=== PATIENT | female | born 1950 | race Caucasian/White ===

== ENCOUNTER 2023-06-03 12:59 | Outpatient (OUT) | payer MEDICARE, BC, SELFPAY ==
[2023-06-03 13:30] LABS: Basophils Percent Auto 0.4 % (0.2-2.0); Eosinophils Absolute Auto 0.1 10^3/uL (0.0-0.7); Eosinophils Percent Auto 1.7 % (0.9-7.0); Hematocrit 44.9 % (36.0-48.0); Hemoglobin 14.3 g/dL (12.0-16.0); Immature Granulocytes Abs Auto 0.01 10^3/uL (0.00-0.03); Immature Granulocytes Pct Auto 0.1 % (0.0-0.5); Lymphocytes Absolute Auto 2.4 10^3/uL (1.2-3.8); Lymphocytes Percent Auto 32.6 % (20.5-60.0); Mean Corpuscular HGB Conc 31.8 g/dL (29.9-35.2); Mean Corpuscular Hemoglobin 29.7 pg (26.7-34.0); Mean Corpuscular Volume 93.3 fL (81.0-99.0); Mean Platelet Volume 10.6 fL (9.5-13.5); Monocytes Absolute Auto 0.8 10^3/uL (0.3-0.8); Monocytes Percent Auto 10.5 % (1.7-12.0); Neutrophils Absolute Auto 4.1 10^3/uL (1.4-6.5); Neutrophils Percent Auto 54.7 % (43.0-75.0); Platelet Count 259 10^3/uL (150-450); Red Blood Count 4.81 10^6/uL (4.20-5.40); Red Cell Distribution Width 13.8 % (11.0-15.0); White Blood Count 7.4 10^3/uL (4.0-11.0)
[2023-06-03 13:49] LABS: Estimated Average Glucose 117 mg/dL; Glycohemoglobin A1C 5.7 % (4.5-6.2)
[2023-06-03 14:20] LABS: Alanine Aminotransferase 35 U/L (14-59); Albumin Globulin Ratio 0.9; Albumin Level 3.7 g/dL (3.4-5.0); Alkaline Phosphatase 96 U/L (46-116); Anion Gap 11.2; Aspartate Amino Transferase 26 U/L (15-37); BUN Creatinine Ratio 17.9; Bilirubin Total 0.6 mg/dL (0.2-1.0); Calcium 9.5 mg/dL (8.5-10.1); Carbon Dioxide 31.1 mmol/L (21.0-32.0); Chloride 103 mmol/L (98-107); Chol HDL Ratio 3.7; Cholesterol 243 mg/dL (<=200); Estimated GFR (African America >60 (>=60); Estimated GFR (Non-African Ame >60 (>=60); Globulin 4.2 g/dL; Glucose 108 mg/dL (74-106); HDL Cholesterol 66 mg/dL (40-60); Potassium 4.3 mmol/L (3.5-5.1); Sodium 141 mmol/L (136-145); Thyroid Stimulating Hormone 3.949 uIU/mL (0.358-3.740); Total Protein 7.9 g/dL (6.4-8.2); Triglycerides 87 mg/dL (<=150); VLDL CHOLESTEROL 17.4 mg/dL
[2023-06-04 12:12] LABS: Insulin 16.1 uIU/mL (2.6-24.9)
== END 2023-06-03 13:00 | disposition home or self-care (01) ==
LOC: LAB 12:59
PROVIDERS: PCP Family Medicine; Visit Provider Family Medicine
DX: E78.00 Pure hypercholesterolemia, unspecified (principal); I10 Essential (primary) hypertension; E55.9 Vitamin D deficiency, unspecified; R73.09 Other abnormal glucose; D64.9 Anemia, unspecified
CPT/HCPCS: 36415; 80053; 80061; 82306; 83036; 83525; 83540; 84436; 84443; 84481; 85025

== ENCOUNTER 2024-12-06 10:25 | Outpatient (OUT) | payer MEDICARE, BC, SELFPAY ==
--- OUTSIDE RECORDS SUMMARY | 2024-12-06 10:38 | XMS_ITS | CCD ---
Author Organization [facility] Care Team Providers Care Whip Sawyer Name Role Phone TASIA ., DR WOODWARD Admitting Unavailable HOY ., DR WOODWARD Attending Unavailable HOY ., DR WOODWARD Primary Care Unavailable HOY ., DR WOODWARD Admitting Unavailable HOY ., DR WOODWARD Attending Unavailable HOY ., DR WOODWARD Primary Care Unavailable HOY ., DR WOODWARD Consulting Unavailable HOY ., DR WOODWARD Admitting Unavailable HOY ., DR WOODWARD Attending Unavailable HOY ., DR WOODWARD Primary Care Unavailable HOY ., DR WOODWARD Consulting Unavailable KHAN DPM, CAM Attending Unavailable HOY, TRACE M Primary Care Unavailable HOY, TRACE M Primary Care Unavailable KHAN DPM, CAM Attending Unavailable KHAN DPM, CAM Attending Unavailable HOY, TRACE M Primary Care Unavailable KHAN DPM, CAM Attending Unavailable HOY, TRACE M Primary Care Unavailable KHAN DPM, CAM Attending Unavailable HOY, TRACE M Primary Care Unavailable KHAN DPM, CAM Attending Unavailable HOY, TRACE M Primary Care Unavailable KHNA DPM, CAM Attending Unavailable HOY, TRACE M Primary Care Unavailable KHAN DPM, CAM Attending Unavailable HOY, TRACE M Primary Care Unavailable KHAN DPM, CAM Attending Unavailable HOY, TRACE M Primary Care Unavailable KHAN DPM, CAM Attending Unavailable HOY, TRACE M Primary Care Unavailable KHAN DPM, CAM Attending Unavailable HOY, TRACE M Primary Care Unavailable KHAN DPM, CAM Admitting Unavailable KHAN DPM, CAM Attending Unavailable HOY, TRACE M Primary Care Unavailable BARTAL DPM, ALEXANDRE Larson Attending Unavailable HOY, TRACE M Primary Care Unavailable HOY, TRACE M Primary Care Unavailable KHAN DPM, CAM Attending Unavailable HOY, TRACE M Primary Care Unavailable Problems Active Problems Problem Classification Problem Date Documented Da te Episodic/Chronic Unclassified (3 sources) COUGH, UNSPECIFIED; Translations: [COUGH, UNSPECIFIED] Onset: 08-27-2022 Past or Other Problems Problem Classification Problem Date Documented Da te Episodic/Chronic Genitourinary symptoms and ill-defined conditions (4 sources) Dysuria; Translations: [DYSURIA] Onset: 01-30-2022 Episodic Unclassified (1 source) COUGH, UNSPECIFIED; Translations: [COUGH, UNSPECIFIED] Onset: 08-24-2022 Results Test Name Value Interpretation Reference Range Facility [facility] PODIATRY Physician Progr ess Noteon 11-04-2022 AMB PODIATRY Physician Progress Note Reason for Exam Right ankle pain Service 3 views right ankle. AP, lateral, mortise Findings Status post tibial talocalcaneal arthrodesis with intramedullary jorge in place 2 screws from the posterior to anterior calcaneus and the 2 screws from the medial to lateral tibia holding the intramedullary jorge in place No evidence of hardware failure or loosening The fibula has been resected proximal to the ankle joint. Impression Status post tibiotalar joint arthrodesis with intramedullary jorge in place. No evidence of hardware failure or loosening This is a similar appearance to previous x-rays. No acute osseous changes Normal [facility] PODIATRY Physician Progress Note Chief Complaint right ankle pain History of Present Illness Patient is a 71-year-old female who presents to clinic with pain and swelling to her RIGHT anterior ankle for the past 4 days. She states that the pain is 4/10 and is aching. She is s/p right ankle and subtalar joint arthrodesis 02/04/2022. Patient states that she and her sister had COVID infection approximately 2 months ago and subsequently developed a UTI. She was placed on ciprofloxacin and then subsequently placed on Keflex which she did not tolerate well and she discontinued herself. She is concerned that she has a hematogenous infection that is spread to her operative limb. Denies shortness of breath, fever, chills, nausea, vomiting, diarrhea, calf pain. Physical Exam Vitals & Measurements Height/Length Measured: 170 cm (10/19/22 10:38:00) Weight Measured: 120 kg (10/19/22 10:38:00) Body Mass Index Measured: 41.52 kg/m2 (10/19/22 10:38:00) Ht/Wt Measurement Refused by Patient?2: No (10/19/22 10:38:00) Depression Screening Scores Initial Depression Screen Score: 0 (10/19/22 10:38:00) Fall Risk Assessment Is the patient ambulatory (mobile): Yes (10/19/22 10:38:) Have you had a fall within the past: No (10/19/22 10:38:) Have you had 2 or more falls in the past: No (10/19/22 10:38:00) General: Alert and oriented x3. In no acute distress. Lower Extremity Physical Exam: Vascular: DP and PT pulses are palpable, bilateral. CFT < 3 seconds to all digits, Bilateral. Mild nonpitting edema noted to the right anterior ankle. Neurologic: Epicritic and protopathic sensations are grossly intact. Saph/sural/SP/DP/planta r sensation intact to light touch, Bilateral. Dermatologic: Skin is mildly increased to the anterior RIGHT ankle. Capillary fill time is less than 5 seconds to distal lower extremity. Ecchymosis is absent, bilateral. Incisions well-healed. No open lesions noted. Musculoskeletal: Muscle strength 5/5 to all pedal groups bilaterally No pain with palpation or manipulation of operative site. Foot/ankle appears rectus in nature with longitudinal axis of tibia. Mild tenderness to palpation of the anterior ankle. Medication Reconciliation What How Much When Why Instructions Unchanged acetaminophen-oxycodone (acetaminophen-oxycodon e 325 mg-5 mg oral tablet = Percocet) 1 Tabs Oral EVERY SIX HOURS as needed for for pain Primary osteoarthritis of right ankle Duration: 7 Days Contact prescribing physician if questions or concerns Unchanged acetaminophen-oxycodone (acetaminophen-oxycodon e 325 mg-5 mg oral tablet = Percocet) 1 Tabs Oral EVERY SIX HOURS as needed for for pain Primary osteoarthritis of right ankle Duration: 10 Days Contact prescribing physician if questions or concerns Unchanged acetaminophen-oxycodone (acetaminophen-oxycodon e 325 mg-5 mg oral tablet = Percocet) 2 Tabs Oral EVERY SIX HOURS as needed for for pain Status post surgery Duration: 7 Days Contact prescribing physician if questions or concerns Unchanged acetaminophen-oxycodone (acetaminophen-oxycodon e 325 mg-5 mg oral tablet = Percocet) 1 Tabs Oral EVERY SIX HOURS as needed for for pain Primary osteoarthritis of right ankle Duration: 7 Days Contact prescribing physician if questions or concerns Unchanged albuterol = Proventil, Ventolin (albuterol 90 mcg/ inh inhalation aerosol) 2 Puffs Inhalation EVERY FOUR HOURS as needed for Wheezing or Dyspnea Contact prescribing physician if questions or concerns Unchanged aspirin (aspirin 81 mg oral delayed release tablet) 1 Tabs Oral DAILY WITH BREAKFAST Contact prescribing physician if questions or concerns Unchanged calcium carbonate (calcium (as carbonate) 600 mg oral tablet) 2 Tabs Oral TWICE A DAY Contact prescribing physician if questions or concerns Unchanged carvedilol (carvedilol 6.25 mg oral tablet) 1 Tabs Oral TWICE A DAY Contact prescribing physician if questions or concerns Unchanged cephalexin (Keflex 500 mg oral capsule) 1 Capsules Oral EVERY EIGHT HOURS Duration: 10 Days Contact prescribing physician if questions or concerns Unchanged cyanocobalamin (cyanocobalamin 1000 mcg oral tablet) 2 Tabs Oral DAILY Contact prescribing physician if questions or concerns Unchanged cyclobenzaprine = Flexeril (cyclobenzaprine 10 mg oral tablet) 1 Tabs Oral EVERY EIGHT HOURS as needed for as needed for muscle spasm Contact prescribing physician if questions or concerns Unchanged diclofenac (diclofenac sodium (= Voltaren) 75 mg oral delayed release tablet) 1 Tabs Oral EVERY OTHER DAY as needed for as needed for pain Contact prescribing physician if questions or concerns Unchanged ferrous sulfate ( iron ) (ferrous sulfate 325 mg (65 mg elemental iron) oral tablet) 1 Tabs Oral DAILY Contact prescribing physician if questions or concerns Unchanged ginkgo (Ginkgo Biloba) 1 Tabs Oral DAILY Contact prescribing physician if questions or concerns Unchanged ibuprofen = Motrin, Advil (IBU 800 mg oral tablet) 1 Tabs Oral THREE TIMES A DAY as needed for as ne (more content not included)... Normal [facility] Ambulatory Clinical Summaryo n 10-19-2022 Ambulatory Clinical Summary SADIE FERNANDEZ :1950 Visit Date:10/19/2022 Ambulatory Visit Instructions Your Care Team Attending Physician - JYOTI ORTEGA, CAM Primary Care Physician - TRACE DOZIER Procedures Performed RIGHT ANKLE ARTHRODESIS,,RIGHT SUBTALAR JOINT ARTHRODESIS (02/04/2022) RIGHT TOTAL HIP REPLACEMENT (04/05/2019) Lumbar Laminectomy Posterior with Fusion. (05/09/2017) left hip revision Left acetabular revision right total knee LEFT TOTAL HIP REPLACEMENT 2006 2 BACK SURGERY WITH HARDWARE INSERTION 2006 GALLBLADDER 2007 Discharge Vitals No qualifying data available. What to do next Scheduled Follow-Up Appointments No results Medications What How Much When Why Instructions Unchanged acetaminophen-oxycodone (acetaminophen-oxycodon e 325 mg-5 mg oral tablet = Percocet) 1 Tabs Oral EVERY SIX HOURS as needed for for pain Primary osteoarthritis of right ankle Duration: 7 Days Unchanged acetaminophen-oxycodone (acetaminophen-oxycodon e 325 mg-5 mg oral tablet = Percocet) 1 Tabs Oral EVERY SIX HOURS as needed for for pain Primary osteoarthritis of right ankle Duration: 10 Days Unchanged acetaminophen-oxycodone (acetaminophen-oxycodon e 325 mg-5 mg oral tablet = Percocet) 2 Tabs Oral EVERY SIX HOURS as needed for for pain Status post surgery Duration: 7 Days Unchanged acetaminophen-oxycodone (acetaminophen-oxycodon e 325 mg-5 mg oral tablet = Percocet) 1 Tabs Oral EVERY SIX HOURS as needed for for pain Primary osteoarthritis of right ankle Duration: 7 Days Unchanged albuterol = Proventil, Ventolin (albuterol 90 mcg/ inh inhalation aerosol) 2 Puffs Inhalation EVERY FOUR HOURS as needed for Wheezing or Dyspnea Unchanged aspirin (aspirin 81 mg oral delayed release tablet) 1 Tabs Oral DAILY WITH BREAKFAST Unchanged calcium carbonate (calcium (as carbonate) 600 mg oral tablet) 2 Tabs Oral TWICE A DAY Unchanged carvedilol (carvedilol 6.25 mg oral tablet) 1 Tabs Oral TWICE A DAY Unchanged cephalexin (Keflex 500 mg oral capsule) 1 Capsules Oral EVERY EIGHT HOURS Duration: 10 Days Unchanged cyanocobalamin (cyanocobalamin 1000 mcg oral tablet) 2 Tabs Oral DAILY Unchanged cyclobenzaprine = Flexeril (cyclobenzaprine 10 mg oral tablet) 1 Tabs Oral EVERY EIGHT HOURS as needed for as needed for muscle spasm Unchanged diclofenac (diclofenac sodium (= Voltaren) 75 mg oral delayed release tablet) 1 Tabs Oral EVERY OTHER DAY as needed for as needed for pain Unchanged ferrous sulfate ( iron ) (ferrous sulfate 325 mg (65 mg elemental iron) oral tablet) 1 Tabs Oral DAILY Unchanged ginkgo (Ginkgo Biloba) 1 Tabs Oral DAILY Unchanged ibuprofen = Motrin, Advil (IBU 800 mg oral tablet) 1 Tabs Oral THREE TIMES A DAY as needed for as needed for pain Unchanged methylPREDNISolone (Medrol 4 mg oral tablet) 1 Packets Oral DAILY Duration: 6 Days as directed on package labeling Unchanged multivitamin with minerals 1 Tabs Oral DAILY Unchanged Non-Formulary Med (BIO-CMP (CALIUM,MAGNESIUM,PHOSP HATE) OTC) 1 Tabs Oral DAILY Unchanged omeprazole (omeprazole 40 mg oral delayed release capsule) 1 Capsules Oral DAILY Allergies No Known Medication Allergies Pollen allergy sneezing Problems Ongoing - Any problem that you are currently receiving treatment for. Cellulitis of right lower leg Difficulty walking Local edema Lumbar stenosis Osteoarthritis of right subtalar joint Pain in right ankle and joints of right foot Primary osteoarthritis of right ankle Spondylolisthesis Common Emergency Awareness Tips IS IT A STROKE? Act FAST and Check for these signs: FACE Does the face look uneven? ARM Does one arm drift down? SPEECH Does their speech sound strange? TIME Call at any sign of stroke Heart Attack Signs Chest discomfort: Most heart attacks involve discomfort in the center of the chest and lasts more than a few minutes, or goes away and comes back. It can feel like uncomfortable pressure, squeezing, fullness or pain. Discomfort in upper body: Symptoms can include pain or discomfort in one or both arms, back, neck, jaw or stomach. Shortness of breath: With or without discomfort. Other signs: Breaking out in a cold sweat, nausea, or lightheaded. Remember, MINUTES DO MATTER. If you experience any of these heart attack warning signs, call to get immediate medical attention! Normal [facility] Comprehensive Intake - Texto n 10-19-2022 Comprehensive Intake - Text Comprehensive Intake Entered On: 10/19/2022 10:40 EDT Performed On: 10/19/2022 10:38 EDT by Ilsa Shah Summary Chief Complaint : pt presents today with pain left lower extremtiy proximal to surgical incision. 08/02 onset two months. Three ankle xrays taken today. Advance Directive : Yes Bladder Control Issues? : No Urine Leakage? : No Presence or absence of urinary incontinence assessed : Yes CPT-II Medication list doc'd in medical record : Yes Influenza immunization administered or previously received : No Pneumococcal vaccine administered or previously received : No LauraSanderRocky Ilsa A 10/19/2022 10:38 EDT Measurements Ht/Wt Measurement Refused by Patient? : No Weight Measured : 120 kg(Converted to: 264 lb 9 oz, 264.555 lb) Height/Length Measured : 170 cm(Converted to: 5 ft 7 in, 66.93 in) Body Mass Index Measured : 41.52 kg/m2 Body Mass Index documented : Yes Ilsa Shah 10/19/2022 10:38 EDT Vitals Require BP : No Pain Present : No actual or suspected pain Pain : 4 Pain severity quantified : No pain present LauraSanderIlsa Hidalgo 10/19/2022 10:38 EDT Infection Screening - Ambulatory Exposure AND/OR close contact with a person under investigation or laboratory-confirmed COVID-19 individual within 14 days of symptom onset AND/OR any of the following: : No Do you live/work in a high risk situation (congregated living, hemodialysis, infusion clinic, residential, assisted living, assisted, homeless snf, etc.)? : No Ilsa Shah 10/19/2022 10:38 EDT Depression Screening Is patient currently : None of the Below Feeling Down, Depressed, Hopeless : Not at all Little Interest - Pleasure in Activities : Not at all Initial Depression Screen Score : 0 Depression Screening Score 0 : No Ilsa Shah 10/19/2022 10:38 EDT Falls Risk Assessment Is the patient ambulatory (mobile) : Yes Have you had 2 or more falls in the past year : No Have you had a fall within the past year that has caused an injury : No Patient screen for fall risk : no falls in last year OR 1 fall with no injury in last year Ilsa Shah 10/19/2022 10:38 EDT Normal [facility] SYMPTOMATIC COVID-19 ANTIGEN on 08-24-2022 EUA Statement SEE BELOW Normal [facility] Comment on above: Result Comment: This test has not been FDA cleared or approved, but has been authorized by the FDA under an Emergency Use Authorization (EUA) for use by authorized laboratories certified under CLIA that meet the requirements to perform moderate or high complexity testing. This test has been authorized only for the detection of proteins from SARS-CoV-2, not for any other viruses or pathogens. The emergency use of this test is authorized for the duration of the declaration that circumstances exist justifying the authorization of emergency use of in vitro diagnostic tests for detection and/or diagnosis of Covid-19 under section 564(b)(1) of the Act, 21 U.S.C. 360bbb-3(b)(1), unless the declaration is terminated or authorization is revoked sooner. Performed By: #### C VDAGS #### [facility] [address] [address] [address] Bryan Villa SARS-CoV-2 (COVID-19) RNA SU+probe Ql (Unsp spec) Positive Abnormal NEGATIVE [facility] Comment on above: Performed By: #### C VDAGS #### [facility] [address] [address] [address] Bryan Villa [facility] PODIATRY Physician Progr ess Noteon 08-09-2022 [facility] PODIATRY Physician Progress Note Reason for Exam Status post right ankle surgery. Service 3 views right ankle. AP, lateral, mortise Findings Intramedullary nail fixation from the calcaneus to the talus to the tibia with hardware intact. No signs of hardware loosening No acute fracture Soft tissue intact Impression Interval changes with continued osseous bridging across the subtalar joint and ankle joint Normal [facility] AMB PODIATRY Physician Progress Note Chief Complaint Patient presents 6 months post right STJ arthrodesis Arrived with regular footwear and OT ankle brace Reports no pain and she is doing well with dorsi and plantar flexion History of Present Illness Patient presents to clinic status post right ankle arthrodesis, subtalar joint arthrodesis, excision of fibula. Date of surgery: February 04 2022. She presents to clinic with her sister and they are both very happy today. She states she is in no pain today. She has been driving. She denies any constitutional symptoms today. Physical Exam Vitals & Measurements Height/Length Measured: 169 cm (08/06/22 11:10:00) Weight Measured: 125 kg (08/06/22 11:10:00) Body Mass Index Measured: 43.77 kg/m2 (08/06/22 11:10:00) Ht/Wt Measurement Refused by Patient?2: No (08/06/22 11:10:00) Depression Screening Scores Initial Depression Screen Score: 0 (08/06/22 11:10:00) Fall Risk Assessment Is the patient ambulatory (mobile): Yes (08/06/22 11:10:00) Have you had a fall within the past: No (08/06/22 11:10:) Have you had 2 or more falls in the past: No (08/06/22 11:10:00) General: Alert and oriented x3. In no acute distress. Patient's vital signs appear stable, denies any constitutional symptoms. Lower Extremity Physical Exam: Vascular: DP and PT pulses are palpable, bilateral. CFT < 3 seconds to all digits, Bilateral. Edema is absent bilaterally Neurologic: Epicritic and protopathic sensations are grossly intact. Saph/sural/SP/DP/planta r sensation intact to light touch, Bilateral. Dermatologic: Skin temperature is within normal limits, warm to warm, from proximal tibial tuberosity to distal digits. Capillary fill time is less than 5 seconds to distal lower extremity. Ecchymosis is absent, bilateral. Incisions well-healed. Skin edges appear viable and well hydrated. Musculoskeletal: Muscle strength 5/5 to all pedal groups bilaterally No pain with palpation or manipulation of operative site. Foot/ankle appears rectus in nature with longitudinal axis of tibia. Assessment/Plan This Visit Diagnosis 1. Status post right foot surgery [id number] Ordered: AMB Office/Outpt Est Pt SF / - min [id number], 08/06/2022 18:07:00 EDT, Status post right foot surgery AMB X-ray, ankle, right; , min 3 views [id number], 08/06/2022 18:07:00 EDT, Status post right foot surgery, 1 Patient presents today s/p right ankle arthrodesis, subtalar joint arthrodesis, excision of fibula. Date of surgery: February 04 2022. X-rays were obtained and reviewed in detail and discussed at length the patient's understanding. Continue weight bearing as tolerated in normal shoes Prescription for diabetic shoes provided RTC: as needed Problem List/Past Medical History Ongoing Cellulitis of right lower leg Difficulty walking Local edema Lumbar stenosis Osteoarthritis of right subtalar joint Pain in right ankle and joints of right foot Primary osteoarthritis of right ankle Spondylolisthesis Historical Arthritis Asthma Back pain High Blood Pressure Reflux Procedure/Surgical History RIGHT ANKLE ARTHRODESIS,,RIGHT SUBTALAR JOINT ARTHRODESIS: 02/04/22 RIGHT TOTAL HIP REPLACEMENT: 04/05/19 Lumbar Laminectomy Posterior with Fusion.: 05/09/17 Left acetabular revision left hip revision LEFT TOTAL HIP REPLACEMENT 2006 right total knee 2 BACK SURGERY WITH HARDWARE INSERTION 2007 GALLBLADDER 2008 Medications acetaminophen-oxycodone 325 mg-5 mg oral tablet = Percocet, 2 tabs, ORAL, [id number], PRN acetaminophen-oxycodone 325 mg-5 mg oral tablet = Percocet, 1 tabs, ORAL, [id number], PRN acetaminophen-oxycodone 325 mg-5 mg oral tablet = Percocet, 1 tabs, ORAL, [id number], PRN acetaminophen-oxycodone 325 mg-5 mg oral tablet = Percocet, 1 tabs, ORAL, [id number], PRN albuterol 90 mcg/inh inhalation aerosol, 2 puffs, Inhalation, [id number], PRN aspirin 81 mg oral delayed release tablet, 81 mg= 1 tabs, ORAL, DAILY WITH BREAKFAST BIO-CMP (CALIUM,MAGNESIUM,PHOSP HATE) OTC, 1 tabs, ORAL, DAILY calcium (as carbonate) 600 mg oral tablet, 1200 mg= 2 tabs, ORAL, BID carvedilol 6.25 mg oral tablet, 6.25 mg= 1 tabs, ORAL, BID cyanocobalamin 1000 mcg oral tablet, 2000 mcg= 2 tabs, ORAL, DAILY cyclobenzaprine 10 mg oral tablet, 10 mg= 1 tabs, ORAL, [id number], PRN, 2 refills diclofenac sodium (= Voltaren) 75 mg oral delayed release tablet, 75 mg= 1 tabs, ORAL, EVERY OTHER DAY, PRN ferrous sulfate 325 mg (65 mg elemental iron) oral tablet, 325 mg= 1 tabs, ORAL, DAILY Ginkgo Biloba, 1 tabs, ORAL, DAILY IBU 800 mg oral tablet, 800 mg= 1 tabs, ORAL, TID, PRN Keflex 500 mg oral capsule, 500 mg= 1 caps, ORAL, [id number] Medrol 4 mg oral tablet, 1 packets, ORAL, DAILY multivitamin with minerals, 1 tabs, ORAL, DAILY omeprazole 40 mg oral delayed release capsule, 40 mg= 1 caps, ORAL, DAILY Allergies No Known Medication Allergies Pollen allergy (sneezing) Social History Alcohol - Denies Alcohol Use Domestic Concerns No, Stressors [place] (more content not included)... Normal [facility] Ambulatory Clinical Summaryo n 08-06-2022 Ambulatory Clinical Summary SADIE FERNANDEZ :1950 Visit Date:08/06/2022 Ambulatory Visit Instructions Your Care Team Attending Physician - JYOTI ORTEGA, CAM Primary Care Physician - TRACE DOZIER Procedures Performed RIGHT ANKLE ARTHRODESIS,,RIGHT SUBTALAR JOINT ARTHRODESIS (02/04/2022) RIGHT TOTAL HIP REPLACEMENT (04/05/2019) Lumbar Laminectomy Posterior with Fusion. (05/09/2017) 2 BACK SURGERY WITH HARDWARE INSERTION 2007 GALLBLADDER 2008 Left acetabular revision left hip revision LEFT TOTAL HIP REPLACEMENT 2006 right total knee Discharge Vitals Height 169 cm Weight 125 kg BMI 43.77 Height/Length Measured: 169 cm (08/06/22 11:10:00) Weight Measured: 125 kg (08/06/22 11:10:00) Body Mass Index Measured: 43.77 kg/m2 (08/06/22 11:10:00) Ht/Wt Measurement Refused by Patient?2: No (08/06/22 11:10:00) What to do next Scheduled Follow-Up Appointments No results Medications What How Much When Why Instructions Unchanged acetaminophen-oxycodone (acetaminophen-oxycodon e 325 mg-5 mg oral tablet = Percocet) 1 Tabs Oral EVERY SIX HOURS as needed for for pain Primary osteoarthritis of right ankle Duration: 7 Days Unchanged acetaminophen-oxycodone (acetaminophen-oxycodon e 325 mg-5 mg oral tablet = Percocet) 1 Tabs Oral EVERY SIX HOURS as needed for for pain Primary osteoarthritis of right ankle Duration: 10 Days Unchanged acetaminophen-oxycodone (acetaminophen-oxycodon e 325 mg-5 mg oral tablet = Percocet) 2 Tabs Oral EVERY SIX HOURS as needed for for pain Status post surgery Duration: 7 Days Unchanged acetaminophen-oxycodone (acetaminophen-oxycodon e 325 mg-5 mg oral tablet = Percocet) 1 Tabs Oral EVERY SIX HOURS as needed for for pain Primary osteoarthritis of right ankle Duration: 7 Days Unchanged albuterol = Proventil, Ventolin (albuterol 90 mcg/ inh inhalation aerosol) 2 Puffs Inhalation EVERY FOUR HOURS as needed for Wheezing or Dyspnea Unchanged aspirin (aspirin 81 mg oral delayed release tablet) 1 Tabs Oral DAILY WITH BREAKFAST Unchanged calcium carbonate (calcium (as carbonate) 600 mg oral tablet) 2 Tabs Oral TWICE A DAY Unchanged carvedilol (carvedilol 6.25 mg oral tablet) 1 Tabs Oral TWICE A DAY Unchanged cephalexin (Keflex 500 mg oral capsule) 1 Capsules Oral EVERY EIGHT HOURS Duration: 10 Days Unchanged cyanocobalamin (cyanocobalamin 1000 mcg oral tablet) 2 Tabs Oral DAILY Unchanged cyclobenzaprine = Flexeril (cyclobenzaprine 10 mg oral tablet) 1 Tabs Oral EVERY EIGHT HOURS as needed for as needed for muscle spasm Unchanged diclofenac (diclofenac sodium (= Voltaren) 75 mg oral delayed release tablet) 1 Tabs Oral EVERY OTHER DAY as needed for as needed for pain Unchanged ferrous sulfate ( iron ) (ferrous sulfate 325 mg (65 mg elemental iron) oral tablet) 1 Tabs Oral DAILY Unchanged ginkgo (Ginkgo Biloba) 1 Tabs Oral DAILY Unchanged ibuprofen = Motrin, Advil (IBU 800 mg oral tablet) 1 Tabs Oral THREE TIMES A DAY as needed for as needed for pain Unchanged methylPREDNISolone (Medrol 4 mg oral tablet) 1 Packets Oral DAILY Duration: 6 Days as directed on package labeling Unchanged multivitamin with minerals 1 Tabs Oral DAILY Unchanged Non-Formulary Med (BIO-CMP (CALIUM,MAGNESIUM,PHOSP HATE) OTC) 1 Tabs Oral DAILY Unchanged omeprazole (omeprazole 40 mg oral delayed release capsule) 1 Capsules Oral DAILY Allergies No Known Medication Allergies Pollen allergy (sneezing) Problems Ongoing - Any problem that you are currently receiving treatment for. Cellulitis of right lower leg Difficulty walking Local edema Lumbar stenosis Osteoarthritis of right subtalar joint Pain in right ankle and joints of right foot Primary osteoarthritis of right ankle Spondylolisthesis Historical - Any problem that you are no longer receiving treatment for. Arthritis Asthma Back pain High Blood Pressure Reflux Common Emergency Awareness Tips IS IT A STROKE? Act FAST and Check for these signs: FACE Does the face look uneven? ARM Does one arm drift down? SPEECH Does their speech sound strange? TIME Call at any sign of stroke Heart Attack Signs Chest discomfort: Most heart attacks involve discomfort in the center of the chest and lasts more than a few minutes, or goes away and comes back. It can feel like uncomfortable pressure, squeezing, fullness or pain. Discomfort in upper body: Symptoms can include pain or discomfort in one or both arms, back, neck, jaw or stomach. Shortness of breath: With or without discomfort. Other signs: Breaking out in a cold sweat, nausea, or lightheaded. Remember, MINUTES DO MATTER. If you experience any of these heart attack warning signs, call to get immediate medical attention! Normal [facility] Comprehensive Intake - Texto n 08-06-2022 Comprehensive Intake - Text Comprehensive Intake Entered On: 08/06/2022 11:12 EDT Performed On: 08/06/2022 11:10 EDT by Dilcia Rogers LPN Summary Chief Complaint : Patient presents 6 months post right STJ arthrodesis Arrived with regular footwear and OTC ankle brace Reports no pain and she is doing well with dorsi and plantar flexion Advance Directive : Yes Bladder Control Issues? : No Urine Leakage? : No Presence or absence of urinary incontinence assessed : Yes CPT-II Medication list doc'd in medical record : Yes Influenza immunization administered or previously received : No Pneumococcal vaccine administered or previously received : No Dilcia Rogers LPN - 08/06/2022 11:10 EDT Measurements Ht/Wt Measurement Refused by Patient? : No Weight Measured : 125 kg(Converted to: 275 lb 9 oz, 275.578 lb) Height/Length Measured : 169 cm(Converted to: 5 ft 7 in, 66.54 in) Body Mass Index Measured : 43.77 kg/m2 Body Mass Index documented : Yes Dilcia Rogers LPN - 08/06/2022 11:10 EDT Vitals Require BP : No Pain Present : No actual or suspected pain Pain : 0 Pain severity quantified : No pain present Dilcia Rogers LPN - 08/06/2022 11:10 EDT Infection Screening - Ambulatory Exposure AND/OR close contact with a person under investigation or laboratory-confirmed COVID-19 individual within 14 days of symptom onset AND/OR any of the following: : No Do you live/work in a high risk situation (congregated living, hemodialysis, infusion clinic, residential, assisted living, assisted, homeless snf, etc.)? : No Dilcia Rogers LPN - 08/06/2022 11:10 EDT Depression Screening Is patient currently : None of the Below Feeling Down, Depressed, Hopeless : Not at all Little Interest - Pleasure in Activities : Not at all Initial Depression Screen Score : 0 Depression Screening Score 0 : No Dilcia Rogers LPN - 08/06/2022 11:10 EDT Falls Risk Assessment Is the patient ambulatory (mobile) : Yes Have you had 2 or more falls in the past year : No Have you had a fall within the past year that has caused an injury : No Patient screen for fall risk : no falls in last year OR 1 fall with no injury in last year Dilcia Rogers LPN - 08/06/2022 11:10 EDT Normal [facility] PODIATRY Physician Progr ess Noteon 05-11-2022 [facility] PODIATRY Physician Progress Note Reason for Exam Status post right foot and ankle surgery Service 3 views right ankle Findings Intramedullary nail fixation from the calcaneus to the talus to the tibia with hardware intact. 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 Date of surgery: February 04 2022. She has been doing physical therapy sessions at her house since last visit. She has been weightbearing with a walker over the past few weeks however cannot get through the entire day with the walker. She uses the knee scooter when her foot becomes painful. At the end of the day she says her foot is very swollen to the point where she would not be able to get her foot into a shoe. She presents to clinic with her sister and they are both very happy today. She states she is in no pain today. Physical Exam Vitals & Measurements Ht/Wt Measurement Refused by Patient?2: Yes (05/11/22 10:17:00) Depression Screening Scores Initial Depression Screen Score: 0 (05/11/22 10:17:00) Fall Risk Assessment Is the patient ambulatory (mobile): Yes (05/11/22 10:17:00) Have you had a fall within the past: No (05/11/22 10:17:00) Have you had 2 or more falls in the past: No (05/11/22 10:17:00) General: Alert and oriented x3. In no acute distress. Patient's vital signs appear stable, denies any constitutional symptoms. Lower Extremity Physical Exam: Vascular: DP and PT pulses are palpable, bilateral. CFT < 3 seconds to all digits, Bilateral. Edema is absent bilaterally Neurologic: Epicritic and protopathic sensations are grossly intact. Saph/sural/SP/DP/planta r sensation intact to light touch, Bilateral. Dermatologic: Skin temperature is within normal limits, warm to warm, from proximal tibial tuberosity to distal digits. Capillary fill time is less than 5 seconds to distal lower extremity. Ecchymosis is absent, bilateral. Incisions well-healed. Skin edges appear viable and well hydrated. Musculoskeletal: Muscle strength testing was deferred, due to normal postoperative course. No pain with palpation or manipulation of operative site. Foot/ankle appears rectus in nature with longitudinal axis of tibia. Assessment/Plan This Visit Diagnosis 1. Primary osteoarthritis of right ankle M19.071 Ordered: AMB Office/Outpt Est Pt Low MDM / 20-29 min [id number], 05/11/2022 10:50:00 EST, Primary osteoarthritis of right ankle / Osteoarthritis of right subtalar joint / Local edema AMB X-ray, ankle, right; , min 3 views [id number], 05/11/2022 10:50:00 EST, Primary osteoarthritis of right ankle / Osteoarthritis of right subtalar joint, 1 2. 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 Local edema R60.0 Ordered: AMB Office/Outpt Est Pt Low MDM / 20-29 min [id number], 05/11/2022 10:50:00 EST, Primary osteoarthritis of right ankle / Osteoarthritis of right subtalar joint / Local edema Patient presents today s/p right ankle arthrodesis, subtalar joint arthrodesis, excision of fibula. Date of surgery: February 04 2022. X-rays were obtained and reviewed in detail and discussed at length the patient's understanding. Continue physical therapy Prescription for compression stockings provided She did check with her insurance regarding custom orthotics. They do not cover them. She will now check with Medicare about covering her custom foot orthotics. Regardless if the orthotics are covered or not I do recommend her obtaining them. WB Status: Progress to weightbearing as tolerated in a normal shoe when her swelling improves All questions concerns regarding perioperative and medical management were addressed to patient satisfaction. RTC: 4 weeks Problem List/Past Medical History Ongoing Cellulitis of right lower leg Difficulty walking Local edema Lumbar stenosis Osteoarthritis of right subtalar joint Pain in right ankle and joints of right foot Primary osteoarthritis of right ankle Spondylolisthesis Historical Arthritis Asthma Back pain High Blood Pressure Reflux Procedure/Surgical History RIGHT ANKLE ARTHRODESIS,,RIGHT SUBTALAR JOINT ARTHRODESIS: 02/04/22 RIGHT TOTAL HIP REPLACEMENT: 04/05/19 Lumbar Laminectomy Posterior with Fusion.: 05/09/17 left hip revision Left acetabular revision right total knee 2 BACK SURGERY WITH HARDWARE INSERTION 2006 GALLBLADDER 2007 LEFT TOTAL HIP REPLACEMENT 2007 Medications acetaminophen-oxycodone 325 mg-5 mg oral tablet = Percocet, 2 tabs, ORAL, [id number], PRN acetaminophen-oxycodone 325 mg-5 mg oral tablet = Percocet, 1 tabs, ORAL, [id number], PRN acetaminophen-oxycodone 325 mg-5 mg (more content not included)... Normal [facility] Ambulatory Clinical Summaryo n 05-11-2022 Ambulatory Clinical Summary SADIE FERNANDEZ :1950 Visit Date:05/11/2022 Ambulatory Visit Instructions Your Diagnosis Primary osteoarthritis of right ankle Osteoarthritis of right subtalar joint Local edema Your Care Team Attending Physician - CAM KHAN DPM Primary Care Physician - TRACE DOZIER Procedures Performed RIGHT ANKLE ARTHRODESIS,,RIGHT SUBTALAR JOINT ARTHRODESIS (02/04/2022) RIGHT TOTAL HIP REPLACEMENT (04/05/2019) Lumbar Laminectomy Posterior with Fusion. (05/09/2017) 2 BACK SURGERY WITH HARDWARE INSERTION 2007 GALLBLADDER 2008 Left acetabular revision left hip revision LEFT TOTAL HIP REPLACEMENT 2006 right total knee Discharge Vitals Ht/Wt Measurement Refused by Patient?2: Yes (05/11/22 10:17:00) What to do next Scheduled Follow-Up Appointments Appointment Type Reason for visit Day With Date Time Where City&State Established Patient Right Foot Tuesday Cam Khan DPM August 06, 2022 11:00 am EDT Podiatry [address] [facility] [address] [place] [id number] Medications What How Much When Why Instructions Unchanged acetaminophen-oxycodone (acetaminophen-oxycodon e 325 mg-5 mg oral tablet = Percocet) 1 Tabs Oral EVERY SIX HOURS as needed for for pain Primary osteoarthritis of right ankle Duration: 7 Days Unchanged acetaminophen-oxycodone (acetaminophen-oxycodon e 325 mg-5 mg oral tablet = Percocet) 1 Tabs Oral EVERY SIX HOURS as needed for for pain Primary osteoarthritis of right ankle Duration: 10 Days Unchanged acetaminophen-oxycodone (acetaminophen-oxycodon e 325 mg-5 mg oral tablet = Percocet) 2 Tabs Oral EVERY SIX HOURS as needed for for pain Status post surgery Duration: 7 Days Unchanged acetaminophen-oxycodone (acetaminophen-oxycodon e 325 mg-5 mg oral tablet = Percocet) 1 Tabs Oral EVERY SIX HOURS as needed for for pain Primary osteoarthritis of right ankle Duration: 7 Days Unchanged albuterol = Proventil, Ventolin (albuterol 90 mcg/ inh inhalation aerosol) 2 Puffs Inhalation EVERY FOUR HOURS as needed for Wheezing or Dyspnea Unchanged aspirin (aspirin 81 mg oral delayed release tablet) 1 Tabs Oral DAILY WITH BREAKFAST Unchanged calcium carbonate (calcium (as carbonate) 600 mg oral tablet) 2 Tabs Oral TWICE A DAY Unchanged carvedilol (carvedilol 6.25 mg oral tablet) 1 Tabs Oral TWICE A DAY Unchanged cephalexin (Keflex 500 mg oral capsule) 1 Capsules Oral EVERY EIGHT HOURS Duration: 10 Days Unchanged cyanocobalamin (cyanocobalamin 1000 mcg oral tablet) 2 Tabs Oral DAILY Unchanged cyclobenzaprine = Flexeril (cyclobenzaprine 10 mg oral tablet) 1 Tabs Oral EVERY EIGHT HOURS as needed for as needed for muscle spasm Unchanged diclofenac (diclofenac sodium (= Voltaren) 75 mg oral delayed release tablet) 1 Tabs Oral EVERY OTHER DAY as needed for as needed for pain Unchanged ferrous sulfate ( iron ) (ferrous sulfate 325 mg (65 mg elemental iron) oral tablet) 1 Tabs Oral DAILY Unchanged ginkgo (Ginkgo Biloba) 1 Tabs Oral DAILY Unchanged ibuprofen = Motrin, Advil (IBU 800 mg oral tablet) 1 Tabs Oral THREE TIMES A DAY as needed for as needed for pain Unchanged methylPREDNISolone (Medrol 4 mg oral tablet) 1 Packets Oral DAILY Duration: 6 Days as directed on package labeling Unchanged multivitamin with minerals 1 Tabs Oral DAILY Unchanged Non-Formulary Med (BIO-CMP (CALIUM,MAGNESIUM,PHOSP HATE) OTC) 1 Tabs Oral DAILY Unchanged omeprazole (omeprazole 40 mg oral delayed release capsule) 1 Capsules Oral DAILY Allergies No Known Medication Allergies Pollen allergy (sneezing) Problems Ongoing - Any problem that you are currently receiving treatment for. Cellulitis of right lower leg Difficulty walking Local edema Lumbar stenosis Osteoarthritis of right subtalar joint Pain in right ankle and joints of right foot Primary osteoarthritis of right ankle Spondylolisthesis Historical - Any problem that you are no longer receiving treatment for. Arthritis Asthma Back pain High Blood Pressure Reflux Common Emergency Awareness Tips IS IT A STROKE? Act FAST and Check for these signs: FACE Does the face look uneven? ARM Does one arm drift down? SPEECH Does their speech sound strange? TIME Call at any sign of stroke Heart Attack Signs Chest discomfort: Most heart attacks involve discomfort in the center of the chest and lasts more than a few minutes, or goes away and comes back. It can feel like uncomfortable pressure, squeezing, fullness or pain. Discomfort in upper body: Symptoms can include pain or discomfort in one or both arms, back, neck, jaw or stomach. Shortness of breath: With or without discomfort. Other signs: Breaking out in a cold sweat, nausea, or lightheaded. Remember, MINUTES DO MATTER. If you experience any of these heart attack warning signs, call 9-1-1 to get immediate medical attention! Normal [facility] Comprehensive Intake - Texto n 05-11-2022 Comprehensive Intake - Text Comprehensive Intake Entered On: 05/11/2022 10:19 EST Performed On: 05/11/2022 10:17 EST by Dilcia Rogers LPN Summary Chief Complaint : Patient presents 14 weeks post Right fooT-ankle surgery Arrived via wheel chair Cam walker on, stepped up to the orthoposer today Reports no pain-lingering edema at times 3RAV Advance Directive : Yes Bladder Control Issues? : No Urine Leakage? : No Presence or absence of urinary incontinence assessed : Yes CPT-II Medication list doc'd in medical record : Yes Influenza immunization administered or previously received : No Pneumococcal vaccine administered or previously received : No Dilcia Rogers LPN - 05/11/2022 10:17 EST Measurements Ht/Wt Measurement Refused by Patient? : Yes Dilcia Rogers LPN - 05/11/2022 10:17 EST Vitals Require BP : No Pain Present : No actual or suspected pain Pain : 0 Pain severity quantified : No pain present Dilcia Rogers LPN - 05/11/2022 10:17 EST Infection Screening - Ambulatory Exposure AND/OR close contact with a person under investigation or laboratory-confirmed COVID-19 individual within 14 days of symptom onset AND/OR any of the following: : No Do you live/work in a high risk situation (congregated living, hemodialysis, infusion clinic, residential, assisted living, assisted, homeless snf, etc.)? : No Dilcia Rogers LPN - 05/11/2022 10:17 EST Depression Screening Is patient currently : None of the Below Feeling Down, Depressed, Hopeless : Not at all Little Interest - Pleasure in Activities : Not at all Initial Depression Screen Score : 0 Depression Screening Score 0 : No Dilcia Rogers LPN - 05/11/2022 10:17 EST Falls Risk Assessment Is the patient ambulatory (mobile) : Yes Have you had 2 or more falls in the past year : No Have you had a fall within the past year that has caused an injury : No Patient screen for fall risk : no falls in last year OR 1 fall with no injury in last year Sue SILVIADilcia - 05/11/2022 10:17 EST Normal [facility] AMB PODIATRY Physician Progr paddy Contrerason 04-13-2022 AMB PODIATRY Physician Progress Note Reason Postoperative state, right ankle Service 3 views of the right ankle Findings No signs of acute fracture/subluxation or dislocation. The soft tissue envelope appears well maintained and intact. Tibial talocalcaneal arthrodesis site with hardware intact and bones well opposed Impression Interval postoperative changes of the right ankle with tibial talocalcaneal intramedullary nail intact with no signs of hardware loosening or failure. Bony bridging noted Normal [facility] AMB PODIATRY Physician Progress Note Chief Complaint Pt presents toay for f/u to right arthrodesis to right ankle on 02/04/22. pt states no pain 3 views right ankle sitting History of Present Illness Patient presents to clinic status post right ankle arthrodesis, subtalar joint arthrodesis, excision of fibula. Date of surgery: February 04 2022. She states she is in no pain today and is longer needing to take any prescription medicine. She presents to clinic with assistance of a wheelchair today. She has remained non weight bearing to the right lower extremity since surgery. Her sister is present for todays visit. She is very pleased with her care and even brought me in a [employer] gift. Denies any recent trauma. She denies any constitutional symptoms today. Physical Exam Vitals & Measurements Ht/Wt Measurement Refused by Patient?2: Yes (04/13/22 13:03:00) Depression Screening Scores Initial Depression Screen Score: 0 (04/13/22 13:03:00) Fall Risk Assessment Is the patient ambulatory (mobile): Yes (04/13/22 13:03:00) Have you had a fall within the past: No (04/13/22 13:03:00) Have you had 2 or more falls in the past: No (04/13/22 13:03:00) General: Alert and oriented x3. In no acute distress. Patient's vital signs appear stable, denies any constitutional symptoms. Lower Extremity Physical Exam: Vascular: DP and PT pulses are palpable, bilateral. CFT < 3 seconds to all digits, Bilateral. Edema is present to the operative extremity which is normal at this stage in the postoperative course. Her edema continues to improve Hair growth is present to the level of the digits, Bilateral. Skin temperature is within normal limits, warm to warm, from proximal tibial tuberosity to distal digits. Neurologic: Epicritic and protopathic sensations are grossly intact. Saph/sural/SP/DP/planta r sensation intact to light touch, Bilateral. Dermatologic: Skin temperature is within normal limits, warm to warm, from proximal tibial tuberosity to distal digits. Capillary fill time is less than 5 seconds to distal lower extremity. Ecchymosis is absent, bilateral. Incisions appear grossly intact and well maintained. Skin incision is well coapted. Skin edges appear viable and well hydrated. Musculoskeletal: Muscle strength testing was deferred, due to normal postoperative course. Patient has localized swelling to the perioperative site with no signs of infection. No pain with palpation or manipulation of operative site. Foot/ankle appears rectus in nature with longitudinal axis of tibia. Assessment/Plan This Visit Diagnosis 1. Primary osteoarthritis of right ankle M19.071 Ordered: AMB Postop followup during global period , 04/13/2022 13:47:00 EST, Primary osteoarthritis of right ankle / Osteoarthritis of right subtalar joint AMB X-ray, ankle, right; , min 3 views [id number], 04/13/2022 13:47:00 EST, Primary osteoarthritis of right ankle / Osteoarthritis of right subtalar joint, 1 2. 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 Date of surgery: February 04 2022. X-rays were obtained and reviewed in detail and discussed at length the patient's understanding. PT prescription provided Prescription for custom foot orthotics provided WB Status: Partial weight bearing with assistance of crutches/walker to operative extremity in CAM boot for protection All questions concerns regarding perioperative and medical management were addressed to patient satisfaction. RTC: 4 weeks Problem List/Past Medical History Ongoing Cellulitis of right lower leg Difficulty walking Local edema Lumbar stenosis Osteoarthritis of right subtalar joint Pain in right ankle and joints of right foot Primary osteoarthritis of right ankle Spondylolisthesis Historical Arthritis Asthma Back pain High Blood Pressure Reflux Procedure/Surgical History RIGHT ANKLE ARTHRODESIS,,RIGHT SUBTALAR JOINT ARTHRODESIS: 02/04/22 RIGHT TOTAL HIP REPLACEMENT: 04/05/19 Lumbar Laminectomy Posterior with Fusion.: 05/09/17 left hip revision Left acetabular revision right total knee 2 BACK SURGERY WITH HARDWARE INSERTION 2007 GALLBLADDER 2008 LEFT TOTAL HIP REPLACEMENT 2007 Medications acetaminophen-oxycodone 325 mg-5 mg oral tablet = Percocet, 2 tabs, ORAL, [id number], PRN acetaminophen-oxycodone 325 mg-5 mg oral tablet = Percocet, 1 tabs, ORAL, [id number], PRN acetaminophen-oxycodone 325 mg-5 mg oral tablet = Percocet, 1 tabs, ORAL, [id number], PRN acetaminophen-oxycodone 325 mg-5 mg oral tablet = Percocet, 1 tabs, ORAL, [id number], PRN albuterol 90 mcg/inh inhala (more content not included)... Normal [facility] Ambulatory Clinical Summaryo n 04-13-2022 Ambulatory Clinical Summary SADIE FERNANDEZ :1950 Visit Date:04/13/2022 Ambulatory Visit Instructions Your Care Team Attending Physician - CAM KHAN DPM Primary Care Physician - TRACE DOZIER Procedures Performed RIGHT ANKLE ARTHRODESIS,,RIGHT SUBTALAR JOINT ARTHRODESIS (02/04/2022) RIGHT TOTAL HIP REPLACEMENT (04/05/2019) Lumbar Laminectomy Posterior with Fusion. (05/09/2017) 2 BACK SURGERY WITH HARDWARE INSERTION 2006 GALLBLADDER 2008 Left acetabular revision left hip revision LEFT TOTAL HIP REPLACEMENT 2007 right total knee Discharge Vitals Ht/Wt Measurement Refused by Patient?2: Yes (04/13/22 13:03:00) What to do next Scheduled Follow-Up Appointments Appointment Type Reason for visit Day With Date Time Where [facility] Follow Up Right foot Tuesday Cam Khan DPM May 11, 2022 10:15 am EDT Podiatry [address] [facility] [address] [facility] [address] Medications What How Much When Why Instructions Unchanged acetaminophen-oxycodone (acetaminophen-oxycodon e 325 mg-5 mg oral tablet = Percocet) 1 Tabs Oral EVERY SIX HOURS as needed for for pain Primary osteoarthritis of right ankle Duration: 7 Days Unchanged acetaminophen-oxycodone (acetaminophen-oxycodon e 325 mg-5 mg oral tablet = Percocet) 1 Tabs Oral EVERY SIX HOURS as needed for for pain Primary osteoarthritis of right ankle Duration: 10 Days Unchanged acetaminophen-oxycodone (acetaminophen-oxycodon e 325 mg-5 mg oral tablet = Percocet) 2 Tabs Oral EVERY SIX HOURS as needed for for pain Status post surgery Duration: 7 Days Unchanged acetaminophen-oxycodone (acetaminophen-oxycodon e 325 mg-5 mg oral tablet = Percocet) 1 Tabs Oral EVERY SIX HOURS as needed for for pain Primary osteoarthritis of right ankle Duration: 7 Days Unchanged albuterol = Proventil, Ventolin (albuterol 90 mcg/ inh inhalation aerosol) 2 Puffs Inhalation EVERY FOUR HOURS as needed for Wheezing or Dyspnea Unchanged aspirin (aspirin 81 mg oral delayed release tablet) 1 Tabs Oral DAILY WITH BREAKFAST Unchanged calcium carbonate (calcium (as carbonate) 600 mg oral tablet) 2 Tabs Oral TWICE A DAY Unchanged carvedilol (carvedilol 6.25 mg oral tablet) 1 Tabs Oral TWICE A DAY Unchanged cephalexin (Keflex 500 mg oral capsule) 1 Capsules Oral EVERY EIGHT HOURS Duration: 10 Days Unchanged cyanocobalamin (cyanocobalamin 1000 mcg oral tablet) 2 Tabs Oral DAILY Unchanged cyclobenzaprine = Flexeril (cyclobenzaprine 10 mg oral tablet) 1 Tabs Oral EVERY EIGHT HOURS as needed for as needed for muscle spasm Unchanged diclofenac (diclofenac sodium (= Voltaren) 75 mg oral delayed release tablet) 1 Tabs Oral EVERY OTHER DAY as needed for as needed for pain Unchanged ferrous sulfate ( iron ) (ferrous sulfate 325 mg (65 mg elemental iron) oral tablet) 1 Tabs Oral DAILY Unchanged ginkgo (Ginkgo Biloba) 1 Tabs Oral DAILY Unchanged ibuprofen = Motrin, Advil (IBU 800 mg oral tablet) 1 Tabs Oral THREE TIMES A DAY as needed for as needed for pain Unchanged methylPREDNISolone (Medrol 4 mg oral tablet) 1 Packets Oral DAILY Duration: 6 Days as directed on package labeling Unchanged multivitamin with minerals 1 Tabs Oral DAILY Unchanged Non-Formulary Med (BIO-CMP (CALIUM,MAGNESIUM,PHOSP HATE) OTC) 1 Tabs Oral DAILY Unchanged omeprazole (omeprazole 40 mg oral delayed release capsule) 1 Capsules Oral DAILY Allergies No Known Medication Allergies Pollen allergy (sneezing) Problems Ongoing - Any problem that you are currently receiving treatment for. Cellulitis of right lower leg Difficulty walking Local edema Lumbar stenosis Osteoarthritis of right subtalar joint Pain in right ankle and joints of right foot Primary osteoarthritis of right ankle Spondylolisthesis Historical - Any problem that you are no longer receiving treatment for. Arthritis Asthma Back pain High Blood Pressure Reflux Common Emergency Awareness Tips IS IT A STROKE? Act FAST and Check for these signs: FACE Does the face look uneven? ARM Does one arm drift down? SPEECH Does their speech sound strange? TIME Call at any sign of stroke Heart Attack Signs Chest discomfort: Most heart attacks involve discomfort in the center of the chest and lasts more than a few minutes, or goes away and comes back. It can feel like uncomfortable pressure, squeezing, fullness or pain. Discomfort in upper body: Symptoms can include pain or discomfort in one or both arms, back, neck, jaw or stomach. Shortness of breath: With or without discomfort. Other signs: Breaking out in a cold sweat, nausea, or lightheaded. Remember, MINUTES DO MATTER. If you experience any of these heart attack warning signs, call to get immediate medical attention! Normal [facility] Ambulatory Clinical Summary SADIE FERNANDEZ :1950 Visit Date:04/13/2022 Ambulatory Visit Instructions Your Care Team Attending Physician - JYOTI ORTEGA, CAM Primary Care Physician - TRACE DOZIER Procedures Performed RIGHT ANKLE ARTHRODESIS,,RIGHT SUBTALAR JOINT ARTHRODESIS (02/04/2022) RIGHT TOTAL HIP REPLACEMENT (04/05/2019) Lumbar Laminectomy Posterior with Fusion. (05/09/2017) 2 BACK SURGERY WITH HARDWARE INSERTION 2007 GALLBLADDER 2008 Left acetabular revision left hip revision LEFT TOTAL HIP REPLACEMENT 2006 right total knee Discharge Vitals Ht/Wt Measurement Refused by Patient?2: Yes (04/13/22 13:03:00) What to do next Scheduled Follow-Up Appointments Appointment Type Reason for visit Day With Date Time [facility] Right foot Tuesday Cam Khan DPJose May 11, 2022 10:15 am EDT Podiatry [address] [address] [facility] [id number] Medications What How Much When Why Instructions Unchanged acetaminophen-oxycodone (acetaminophen-oxycodon e 325 mg-5 mg oral tablet = Percocet) 1 Tabs Oral EVERY SIX HOURS as needed for for pain Primary osteoarthritis of right ankle Duration: 7 Days Unchanged acetaminophen-oxycodone (acetaminophen-oxycodon e 325 mg-5 mg oral tablet = Percocet) 1 Tabs Oral EVERY SIX HOURS as needed for for pain Primary osteoarthritis of right ankle Duration: 10 Days Unchanged acetaminophen-oxycodone (acetaminophen-oxycodon e 325 mg-5 mg oral tablet = Percocet) 2 Tabs Oral EVERY SIX HOURS as needed for for pain Status post surgery Duration: 7 Days Unchanged acetaminophen-oxycodone (acetaminophen-oxycodon e 325 mg-5 mg oral tablet = Percocet) 1 Tabs Oral EVERY SIX HOURS as needed for for pain Primary osteoarthritis of right ankle Duration: 7 Days Unchanged albuterol = Proventil, Ventolin (albuterol 90 mcg/ inh inhalation aerosol) 2 Puffs Inhalation EVERY FOUR HOURS as needed for Wheezing or Dyspnea Unchanged aspirin (aspirin 81 mg oral delayed release tablet) 1 Tabs Oral DAILY WITH BREAKFAST Unchanged calcium carbonate (calcium (as carbonate) 600 mg oral tablet) 2 Tabs Oral TWICE A DAY Unchanged carvedilol (carvedilol 6.25 mg oral tablet) 1 Tabs Oral TWICE A DAY Unchanged cephalexin (Keflex 500 mg oral capsule) 1 Capsules Oral EVERY EIGHT HOURS Duration: 10 Days Unchanged cyanocobalamin (cyanocobalamin 1000 mcg oral tablet) 2 Tabs Oral DAILY Unchanged cyclobenzaprine = Flexeril (cyclobenzaprine 10 mg oral tablet) 1 Tabs Oral EVERY EIGHT HOURS as needed for as needed for muscle spasm Unchanged diclofenac (diclofenac sodium (= Voltaren) 75 mg oral delayed release tablet) 1 Tabs Oral EVERY OTHER DAY as needed for as needed for pain Unchanged ferrous sulfate ( iron ) (ferrous sulfate 325 mg (65 mg elemental iron) oral tablet) 1 Tabs Oral DAILY Unchanged ginkgo (Ginkgo Biloba) 1 Tabs Oral DAILY Unchanged ibuprofen = Motrin, Advil (IBU 800 mg oral tablet) 1 Tabs Oral THREE TIMES A DAY as needed for as needed for pain Unchanged methylPREDNISolone (Medrol 4 mg oral tablet) 1 Packets Oral DAILY Duration: 6 Days as directed on package labeling Unchanged multivitamin with minerals 1 Tabs Oral DAILY Unchanged Non-Formulary Med (BIO-CMP (CALIUM,MAGNESIUM,PHOSP HATE) OTC) 1 Tabs Oral DAILY Unchanged omeprazole (omeprazole 40 mg oral delayed release capsule) 1 Capsules Oral DAILY Allergies No Known Medication Allergies Pollen allergy (sneezing) Problems Ongoing - Any problem that you are currently receiving treatment for. Cellulitis of right lower leg Difficulty walking Local edema Lumbar stenosis Osteoarthritis of right subtalar joint Pain in right ankle and joints of right foot Primary osteoarthritis of right ankle Spondylolisthesis Historical - Any problem that you are no longer receiving treatment for. Arthritis Asthma Back pain High Blood Pressure Reflux Common Emergency Awareness Tips IS IT A STROKE? Act FAST and Check for these signs: FACE Does the face look uneven? ARM Does one arm drift down? SPEECH Does their speech sound strange? TIME Call at any sign of stroke Heart Attack Signs Chest discomfort: Most heart attacks involve discomfort in the center of the chest and lasts more than a few minutes, or goes away and comes back. It can feel like uncomfortable pressure, squeezing, fullness or pain. Discomfort in upper body: Symptoms can include pain or discomfort in one or both arms, back, neck, jaw or stomach. Shortness of breath: With or without discomfort. Other signs: Breaking out in a cold sweat, nausea, or lightheaded. Remember, MINUTES DO MATTER. If you experience any of these heart attack warning signs, call to get immediate medical attention! Normal [facility] Comprehensive Intake - Texto n 04-13-2022 Comprehensive Intake - Text Comprehensive Intake Entered On: 04/13/2022 13:05 EST Performed On: 04/13/2022 13:03 EST by Demetria Mayes MA Summary Chief Complaint : Pt presents toay for f/u to right arthrodesis to right ankle on 02/04/22. pt states no pain 3 views right ankle sitting Advance Directive : Yes Bladder Control Issues? : No Urine Leakage? : No Presence or absence of urinary incontinence assessed : Yes CPT-II Medication list doc'd in medical record : Yes Influenza immunization administered or previously received : Yes Pneumococcal vaccine administered or previously received : No Demetria Mayes MA - 04/13/2022 13:03 EST Measurements Ht/Wt Measurement Refused by Patient? : Yes Demetria Mayes MA 04/13/2022 13:03 EST Vitals Require BP : No Pain Present : No actual or suspected pain Pain : 0 Pain severity quantified : No pain present Demetria Mayes MA 04/13/2022 13:03 EST Infection Screening - Ambulatory Exposure AND/OR close contact with a person under investigation or laboratory-confirmed COVID-19 individual within 14 days of symptom onset AND/OR any of the following: : No Do you live/work in a high risk situation (congregated living, hemodialysis, infusion clinic, residential, assisted living, assisted, homeless snf, etc.)? : No Demetria Mayes MA - 04/13/2022 13:03 EST Depression Screening Is patient currently : None of the Below Feeling Down, Depressed, Hopeless : Not at all Little Interest - Pleasure in Activities : Not at all Initial Depression Screen Score : 0 Depression Screening Score 0 : No Demetria Mayes MA - 04/13/2022 13:03 EST Falls Risk Assessment Is the patient ambulatory (mobile) : Yes Have you had 2 or more falls in the past year : No Have you had a fall within the past year that has caused an injury : No Patient screen for fall risk : no falls in last year OR 1 fall with no injury in last year Demetria Mayes MA - 04/13/2022 13:03 EST Normal [facility] AMB PODIATRY Physician Progr ess Noteon 03-15-2022 [facility] PODIATRY Physician Progress Note Reason Postoperative state, right ankle Service 3 views of the right ankle Findings They indicate a normal osseous alignment and anatomic limb No signs of acute fracture/subluxation or dislocation. The soft tissue envelope appears well maintained and intact. Tibial talocalcaneal arthrodesis site with hardware intact and bones well opposed Impression Interval postoperative changes of the right ankle with tibial talocalcaneal intramedullary nail intact with no signs of hardware loosening or failure. Bony bridging noted Normal [facility] PODIATRY Physician Progress Note Chief Complaint pt presents today post surgeyr 02/04. right arthrodesis. pt 8/ pain. No fever, chills, sob or calf tenderness noted. History of Present Illness Patient presents to clinic status post right ankle arthrodesis, subtalar joint arthrodesis, excision of fibula. Date of surgery: February 04 2022. She states she is in no pain today and has not needed to take any prescription medicine for 3 to 4 days. She presents to clinic with assistance of a wheelchair today. She has remained non weight bearing to the right lower extremity since surgery. Her sister is present for todays visit. Overall she is very pleased with her care. Denies any recent trauma. She denies any constitutional symptoms today. Physical Exam Vitals & Measurements Ht/Wt Measurement Refused by Patient?2: Yes (03/15/22 15:38:00) Depression Screening Scores Initial Depression Screen Score: 0 (03/15/22 15:38:00) Fall Risk Assessment Is the patient ambulatory (mobile): Yes (03/15/22 15:38:00) Have you had a fall within the past: No (03/15/22 15:38:00) Have you had 2 or more falls in the past: No (03/15/22 15:38:00) General: Alert and oriented x3. In no acute distress. Patient's vital signs appear stable, denies any constitutional symptoms. Lower Extremity Physical Exam: Vascular: DP and PT pulses are palpable, bilateral. CFT < 3 seconds to all digits, Bilateral. Edema is present to the operative extremity which is normal at this stage in the postoperative course. Her edema continues to improve Hair growth is present to the level of the digits, Bilateral. Skin temperature is within normal limits, warm to warm, from proximal tibial tuberosity to distal digits. Neurologic: Epicritic and protopathic sensations are grossly intact. Saph/sural/SP/DP/planta r sensation intact to light touch, Bilateral. Dermatologic: Skin temperature is within normal limits, warm to warm, from proximal tibial tuberosity to distal digits. Capillary fill time is less than 5 seconds to distal lower extremity. Ecchymosis is absent, bilateral. Incision appear grossly intact and well maintained. Skin incision is well coapted. Skin edges appear viable and well hydrated. Mild erythema noted to the dorsal right foot, does improve with elevation Musculoskeletal: Muscle strength testing was deferred, due to normal postoperative course. Patient has localized swelling to the perioperative site with no signs of infection. No pain with palpation or manipulation of operative site. Foot/ankle appears rectus in nature with longitudinal axis of tibia. Assessment/Plan This Visit Diagnosis 1. Primary osteoarthritis of right ankle M19.071 Ordered: AMB Postop followup during global period , 03/15/2022 16:17:00 EST, Primary osteoarthritis of right ankle / Osteoarthritis of right subtalar joint AMB Walking boot pneumatic right [id number], 03/15/2022 16:17:00 EST, Primary osteoarthritis of right ankle / Osteoarthritis of right subtalar joint, 1 AMB X-ray, ankle, right; , min 3 views [id number], 03/15/2022 16:17:00 EST, Primary osteoarthritis of right ankle / Osteoarthritis of right subtalar joint, 1 2. 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 Date of surgery: February 04 2022. X-rays were obtained and reviewed in detail and discussed at length the patient's understanding. No dressing needed CAM boot dispensed WB Status: Non-weight bearing to operative extremity in CAM boot for protection All questions concerns regarding perioperative and medical management were addressed to patient satisfaction. RTC: 4 weeks Problem List/Past Medical History Ongoing Cellulitis of right lower leg Difficulty walking Local edema Lumbar stenosis Osteoarthritis of right subtalar joint Pain in right ankle and joints of right foot Primary osteoarthritis of right ankle Spondylolisthesis Historical Arthritis Asthma Back pain High Blood Pressure Reflux Procedure/Surgical History RIGHT ANKLE ARTHRODESIS,,RIGHT SUBTALAR JOINT ARTHRODESIS: 02/04/22 RIGHT TOTAL HIP REPLACEMENT: 04/05/19 Lumbar Laminectomy Posterior with Fusion.: 05/09/17 left hip revision Left acetabular revision right total knee 2 BACK SURGERY WITH HARDWARE INSERTION 2007 GALLBLADDER 2008 LEFT TOTAL HIP REPLACEMENT 2007 Medications acetaminophen-oxycodone 325 mg-5 mg oral tablet = Percocet, 2 tabs, ORAL, [id number], PRN acetaminophen (more content not included)... Normal [facility] Ambulatory Clinical Summaryo n 03-15-2022 Ambulatory Clinical Summary SADIE FERNANDEZ :1950 Visit Date:03/15/2022 Ambulatory Visit Instructions Your Diagnosis Primary osteoarthritis of right ankle Osteoarthritis of right subtalar joint Your Care Team Attending Physician - CAM KHAN DPM Primary Care Physician - TRACE DOZIER Procedures Performed RIGHT ANKLE ARTHRODESIS,,RIGHT SUBTALAR JOINT ARTHRODESIS (02/04/2022) RIGHT TOTAL HIP REPLACEMENT (04/05/2019) Lumbar Laminectomy Posterior with Fusion. (05/09/2017) 2 BACK SURGERY WITH HARDWARE INSERTION 2006 GALLBLADDER 2007 Left acetabular revision left hip revision LEFT TOTAL HIP REPLACEMENT 2006 right total knee Discharge Vitals Ht/Wt Measurement Refused by Patient?2: Yes (03/15/22 15:38:00) What to do next Scheduled Follow-Up Appointments Appointment Type Reason for visit Day With Date Time Where [facility] Post Op post op Tuesday Cam Khan DPM April 13, 2022 01:00 pm EDT Podiatry [address] [place] [id number] Medications What How Much When Why Instructions Unchanged acetaminophen-oxycodone (acetaminophen-oxycodon e 325 mg-5 mg oral tablet = Percocet) 1 Tabs Oral EVERY SIX HOURS as needed for for pain Primary osteoarthritis of right ankle Duration: 7 Days Unchanged acetaminophen-oxycodone (acetaminophen-oxycodon e 325 mg-5 mg oral tablet = Percocet) 1 Tabs Oral EVERY SIX HOURS as needed for for pain Primary osteoarthritis of right ankle Duration: 10 Days Unchanged acetaminophen-oxycodone (acetaminophen-oxycodon e 325 mg-5 mg oral tablet = Percocet) 2 Tabs Oral EVERY SIX HOURS as needed for for pain Status post surgery Duration: 7 Days Unchanged acetaminophen-oxycodone (acetaminophen-oxycodon e 325 mg-5 mg oral tablet = Percocet) 1 Tabs Oral EVERY SIX HOURS as needed for for pain Primary osteoarthritis of right ankle Duration: 7 Days Unchanged albuterol = Proventil, Ventolin (albuterol 90 mcg/ inh inhalation aerosol) 2 Puffs Inhalation EVERY FOUR HOURS as needed for Wheezing or Dyspnea Unchanged aspirin (aspirin 81 mg oral delayed release tablet) 1 Tabs Oral DAILY WITH BREAKFAST Unchanged calcium carbonate (calcium (as carbonate) 600 mg oral tablet) 2 Tabs Oral TWICE A DAY Unchanged carvedilol (carvedilol 6.25 mg oral tablet) 1 Tabs Oral TWICE A DAY Unchanged cephalexin (Keflex 500 mg oral capsule) 1 Capsules Oral EVERY EIGHT HOURS Duration: 10 Days Unchanged cyanocobalamin (cyanocobalamin 1000 mcg oral tablet) 2 Tabs Oral DAILY Unchanged cyclobenzaprine = Flexeril (cyclobenzaprine 10 mg oral tablet) 1 Tabs Oral EVERY EIGHT HOURS as needed for as needed for muscle spasm Unchanged diclofenac (diclofenac sodium (= Voltaren) 75 mg oral delayed release tablet) 1 Tabs Oral EVERY OTHER DAY as needed for as needed for pain Unchanged ferrous sulfate ( iron ) (ferrous sulfate 325 mg (65 mg elemental iron) oral tablet) 1 Tabs Oral DAILY Unchanged ginkgo (Ginkgo Biloba) 1 Tabs Oral DAILY Unchanged ibuprofen = Motrin, Advil (IBU 800 mg oral tablet) 1 Tabs Oral THREE TIMES A DAY as needed for as needed for pain Unchanged methylPREDNISolone (Medrol 4 mg oral tablet) 1 Packets Oral DAILY Duration: 6 Days as directed on package labeling Unchanged multivitamin with minerals 1 Tabs Oral DAILY Unchanged Non-Formulary Med (BIO-CMP (CALIUM,MAGNESIUM,PHOSP HATE) OTC) 1 Tabs Oral DAILY Unchanged omeprazole (omeprazole 40 mg oral delayed release capsule) 1 Capsules Oral DAILY Allergies No Known Medication Allergies Pollen allergy (sneezing) Problems Ongoing - Any problem that you are currently receiving treatment for. Cellulitis of right lower leg Difficulty walking Local edema Lumbar stenosis Osteoarthritis of right subtalar joint Pain in right ankle and joints of right foot Primary osteoarthritis of right ankle Spondylolisthesis Historical - Any problem that you are no longer receiving treatment for. Arthritis Asthma Back pain High Blood Pressure Reflux Common Emergency Awareness Tips IS IT A STROKE? Act FAST and Check for these signs: FACE Does the face look uneven? ARM Does one arm drift down? SPEECH Does their speech sound strange? TIME Call at any sign of stroke Heart Attack Signs Chest discomfort: Most heart attacks involve discomfort in the center of the chest and lasts more than a few minutes, or goes away and comes back. It can feel like uncomfortable pressure, squeezing, fullness or pain. Discomfort in upper body: Symptoms can include pain or discomfort in one or both arms, back, neck, jaw or stomach. Shortness of breath: With or without discomfort. Other signs: Breaking out in a cold sweat, nausea, or lightheaded. Remember, MINUTES DO MATTER. If you experience any of these heart attack warning signs, call to get immediate medical attention! Normal [facility] Comprehensive Intake - Texto n 03-15-2022 Comprehensive Intake - Text Comprehensive Intake Entered On: 03/15/2022 15:44 EST Performed On: 03/15/2022 15:38 EST by Ilsa Shah Summary Chief Complaint : pt presents today post surgeyr 02/04. right arthrodesis. pt 8/10 pain. No fever, chills, sob or calf tenderness noted. Advance Directive : Yes Bladder Control Issues? : No Urine Leakage? : No Presence or absence of urinary incontinence assessed : Yes CPT-II Medication list doc'd in medical record : Yes Influenza immunization administered or previously received : Yes Pneumococcal vaccine administered or previously received : Yes Ilsa Shah - 03/15/2022 15:38 EST Measurements Ht/Wt Measurement Refused by Patient? : Yes Ilsa Shah - 03/15/2022 15:38 EST Vitals Require BP : No Pain Present : No actual or suspected pain Pain : 8 Pain severity quantified : No pain present Ilsa Shah - 03/15/2022 15:38 EST Infection Screening - Ambulatory Exposure AND/OR close contact with a person under investigation or laboratory-confirmed COVID-19 individual within 14 days of symptom onset AND/OR any of the following: : No Do you live/work in a high risk situation (congregated living, hemodialysis, infusion clinic, residential, assisted living, assisted, homeless snf, etc.)? : No Ilsa Shah Abdulkadir - 03/15/2022 15:38 EST Depression Screening Is patient currently : None of the Below Feeling Down, Depressed, Hopeless : Not at all Little Interest - Pleasure in Activities : Not at all Initial Depression Screen Score : 0 Depression Screening Score 0 : No LauraSanderRockyIlsa andrade Abdulkadir - 03/15/2022 15:38 EST Falls Risk Assessment Is the patient ambulatory (mobile) : Yes Have you had 2 or more falls in the past year : No Have you had a fall within the past year that has caused an injury : No Patient screen for fall risk : no falls in last year OR 1 fall with no injury in last year LauraIlsa Mayer Abdulkadir - 03/15/2022 15:38 EST Normal [facility] PODIATRY Physician Progr ess Noteon 03-02-2022 [facility] PODIATRY Physician Progress Note Reason Postoperative state, right ankle Service 3 views of the right ankle Findings They indicate a normal osseous alignment and anatomic limb No signs of acute fracture/subluxation or dislocation. The soft tissue envelope appears well maintained and intact. Tibial talocalcaneal arthrodesis site with hardware intact and bones well opposed Impression Postoperative changes of the right ankle with tibial talocalcaneal intramedullary nail intact with no signs of hardware loosening or failure Normal [facility] PODIATRY Physician Progress Note Chief Complaint pt presents today post surgery 3.5 weeks 02/04/22. 3 ankle views taken today. No nausea, vomiting fever noted. No sob or calf tenderness noted. History of Present Illness Patient presents to clinic status post right ankle arthrodesis, subtalar joint arthrodesis, excision of fibula. Date of surgery: February 04 2022. She presents to clinic with assistance of a wheelchair today. Since her last visit she has completed her oral course of antibiotics. She has remained not into the right lower extremity. She does present with her sister today. Overall she is very pleased with her care. Denies any recent trauma. She denies any constitutional symptoms today. Physical Exam Vitals & Measurements Height/Length Measured: 169 cm (11/07/22 15:15:00) Weight Measured: 125 kg (03/01/22:15:) Body Mass Index Measured: 43.77 kg/m2 (03/01/22) Ht/Wt Measurement Refused by Patient?2: No (03/01/22:15) Depression Screening Scores Initial Depression Screen Score: 0 (03/01/22:15:) Fall Risk Assessment Is the patient ambulatory (mobile): Yes (03/01/22:) Have you had a fall within the past: No (03/01/22) Have you had 2 or more falls in the past: No (03/01/22) General: Alert and oriented x3. In no acute distress. Patient's vital signs appear stable, denies any constitutional symptoms. Lower Extremity Physical Exam: Vascular: DP and PT pulses are palpable, bilateral. CFT < 3 seconds to all digits, Bilateral. Edema is present to the operative extremity which is normal at this stage in the postoperative course. Improving. Hair growth is present to the level of the digits, Bilateral. Skin temperature is within normal limits, warm to warm, from proximal tibial tuberosity to distal digits. Neurologic: Epicritic and protopathic sensations are grossly intact. Saph/sural/SP/DP/planta r sensation intact to light touch, Bilateral. Dermatologic: Skin temperature is within normal limits, warm to warm, from proximal tibial tuberosity to distal digits. Capillary fill time is less than 5 seconds to distal lower extremity. Ecchymosis is absent, bilateral. Incision appear grossly intact and well maintained. Skin incision is well coapted. Skin edges appear viable and well hydrated. [place]/sutures intact, removed without incident Mild erythema noted to the dorsal right foot, does improve with elevation Musculoskeletal: Muscle strength testing was deferred, due to normal postoperative course. Patient has localized swelling to the perioperative site with no signs of infection. No pain with palpation or manipulation of operative site. Foot/ankle appears rectus in nature with longitudinal axis of tibia. Assessment/Plan This Visit Diagnosis 1. Primary osteoarthritis of right ankle M19.071 Ordered: AMB Postop followup during global period [id number], 03/01/2022 04:44:00 EST, Primary osteoarthritis of right ankle / Osteoarthritis of right subtalar joint AMB X-ray, ankle, right; , min 3 views [id number], 03/01/2022 04:44:00 EST, Primary osteoarthritis of right ankle / Osteoarthritis of right subtalar joint, 1 2. 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 Ordered: AMB Postop followup during global period [id number], 03/01/2022 04:44:00 EST, Primary osteoarthritis of right ankle / Osteoarthritis of right subtalar joint AMB X-ray, ankle, right; , min 3 views [id number], 03/01/2022 04:44:00 EST, Primary osteoarthritis of right ankle / Osteoarthritis of right subtalar joint, 1 Patient presents today s/p right ankle arthrodesis, subtalar joint arthrodesis, excision of fibula. Date of surgery: February 04 2022. X-rays were obtained and reviewed in detail and discussed at length the patient's understanding. Dressing: Betadine wet to dry WB Status: Non-weight bearing to operative extremity All questions concerns regarding perioperative and medical management were addressed to patient satisfaction. RTC: 2 week(s) Problem List/Past Medical History Ongoing Cellulitis of right lower leg Difficulty walking Local edema Lumbar stenosis Osteoarthritis of right subtalar joint Pain in right ankle and joints of right foot Primary osteoarthritis of right ankle Spondylolisthesis Historical Arthritis Asthma Back pain High Blood Pressure Reflux Procedure/Surgical History RIGHT ANKLE ARTHRODESIS,,RIGHT SUBTALAR JOINT ARTHRODESIS: 02/04/22 RIGHT TOTAL HIP REPLACEMENT: 04/05/19 Lumbar Laminectomy Posterior with Fusion.: 05/09/17 left hip revision Left acetabular revision right total knee 2 BACK SURGERY WITH HARDWARE INSERTION 2006 GALLBLADDER 2008 LEFT TOTAL HIP REPLACEMENT 2007 Medications acetaminophen-oxycodone 325 mg-5 mg oral tablet = Percocet, 2 tabs, ORAL, [id number], PRN acetaminophen-oxycodone 325 mg-5 mg oral tablet = Percocet, 1 tabs, ORAL, [id number], PRN acetaminophen-oxycodone 325 mg-5 mg oral tablet = Percocet, 1 tabs, ORAL, [id number], PRN acetaminophen-oxycodo (more content not included)... Normal [facility] Ambulatory Clinical Summaryo n 03-01-2022 Ambulatory Clinical Summary SADIE FERNANDEZ :1950 Visit Date:03/01/2022 Ambulatory Visit Instructions Your Care Team Attending Physician - CAM KHAN DPM Primary Care Physician - TRACE DOZIER Procedures Performed RIGHT ANKLE ARTHRODESIS,,RIGHT SUBTALAR JOINT ARTHRODESIS (02/04/2022) RIGHT TOTAL HIP REPLACEMENT (04/05/2019) Lumbar Laminectomy Posterior with Fusion. (05/09/2017) 2 BACK SURGERY WITH HARDWARE INSERTION 2007 GALLBLADDER 2008 Left acetabular revision left hip revision LEFT TOTAL HIP REPLACEMENT 2006 right total knee Discharge Vitals Height 169 cm Weight 125 kg BMI 43.77 Height/Length Measured: 169 cm (03/01/22 15:15:00) Weight Measured: 125 kg (03/01/22 15:15:00) Body Mass Index Measured: 43.77 kg/m2 (03/01/22 15:15:00) Ht/Wt Measurement Refused by Patient?2: No (03/01/22 15:15:00) What to do next Scheduled Follow-Up Appointments Appointment Type Reason for visit Day With Date Time Where [facility] Cast 2 week f/u Tuesday Cam Khan DPM March 15, 2022 03:00 pm EDT Podiatry [address] [facility] [address] [place] [id number] Medications What How Much When Why Instructions Unchanged acetaminophen-oxycodone (acetaminophen-oxycodon e 325 mg-5 mg oral tablet = Percocet) 1 Tabs Oral EVERY SIX HOURS as needed for for pain Primary osteoarthritis of right ankle Duration: 7 Days Unchanged acetaminophen-oxycodone (acetaminophen-oxycodon e 325 mg-5 mg oral tablet = Percocet) 1 Tabs Oral EVERY SIX HOURS as needed for for pain Primary osteoarthritis of right ankle Duration: 10 Days Unchanged acetaminophen-oxycodone (acetaminophen-oxycodon e 325 mg-5 mg oral tablet = Percocet) 2 Tabs Oral EVERY SIX HOURS as needed for for pain Status post surgery Duration: 7 Days Unchanged acetaminophen-oxycodone (acetaminophen-oxycodon e 325 mg-5 mg oral tablet = Percocet) 1 Tabs Oral EVERY SIX HOURS as needed for for pain Primary osteoarthritis of right ankle Duration: 7 Days Unchanged albuterol = Proventil, Ventolin (albuterol 90 mcg/ inh inhalation aerosol) 2 Puffs Inhalation EVERY FOUR HOURS as needed for Wheezing or Dyspnea Unchanged aspirin (aspirin 81 mg oral delayed release tablet) 1 Tabs Oral DAILY WITH BREAKFAST Unchanged calcium carbonate (calcium (as carbonate) 600 mg oral tablet) 2 Tabs Oral TWICE A DAY Unchanged carvedilol (carvedilol 6.25 mg oral tablet) 1 Tabs Oral TWICE A DAY Unchanged cephalexin (Keflex 500 mg oral capsule) 1 Capsules Oral EVERY EIGHT HOURS Duration: 10 Days Unchanged cyanocobalamin (cyanocobalamin 1000 mcg oral tablet) 2 Tabs Oral DAILY Unchanged cyclobenzaprine = Flexeril (cyclobenzaprine 10 mg oral tablet) 1 Tabs Oral EVERY EIGHT HOURS as needed for as needed for muscle spasm Unchanged diclofenac (diclofenac sodium (= Voltaren) 75 mg oral delayed release tablet) 1 Tabs Oral EVERY OTHER DAY as needed for as needed for pain Unchanged ferrous sulfate ( iron ) (ferrous sulfate 325 mg (65 mg elemental iron) oral tablet) 1 Tabs Oral DAILY Unchanged ginkgo (Ginkgo Biloba) 1 Tabs Oral DAILY Unchanged ibuprofen = Motrin, Advil (IBU 800 mg oral tablet) 1 Tabs Oral THREE TIMES A DAY as needed for as needed for pain Unchanged methylPREDNISolone (Medrol 4 mg oral tablet) 1 Packets Oral DAILY Duration: 6 Days as directed on package labeling Unchanged multivitamin with minerals 1 Tabs Oral DAILY Unchanged Non-Formulary Med (BIO-CMP (CALIUM,MAGNESIUM,PHOSP HATE) OTC) 1 Tabs Oral DAILY Unchanged omeprazole (omeprazole 40 mg oral delayed release capsule) 1 Capsules Oral DAILY Allergies No Known Medication Allergies Pollen allergy (sneezing) Problems Ongoing - Any problem that you are currently receiving treatment for. Cellulitis of right lower leg Difficulty walking Local edema Lumbar stenosis Osteoarthritis of right subtalar joint Pain in right ankle and joints of right foot Primary osteoarthritis of right ankle Spondylolisthesis Historical - Any problem that you are no longer receiving treatment for. Arthritis Asthma Back pain High Blood Pressure Reflux Common Emergency Awareness Tips IS IT A STROKE? Act FAST and Check for these signs: FACE Does the face look uneven? ARM Does one arm drift down? SPEECH Does their speech sound strange? TIME Call at any sign of stroke Heart Attack Signs Chest discomfort: Most heart attacks involve discomfort in the center of the chest and lasts more than a few minutes, or goes away and comes back. It can feel like uncomfortable pressure, squeezing, fullness or pain. Discomfort in upper body: Symptoms can include pain or discomfort in one or both arms, back, neck, jaw or stomach. Shortness of breath: With or without discomfort. Other signs: Breaking out in a cold sweat, nausea, or lightheaded. Remember, MINUTES DO MATTER. If you experience any of these heart attack warning signs, call 9-1-1 to get immediate medical attention! Electronically Sig (more content not included)... Normal [facility] Comprehensive Intake - Texto n 03-01-2022 Comprehensive Intake - Text Comprehensive Intake Entered On: 03/01/2022 15:19 EST Performed On: 03/01/2022 15:15 EST by Ilsa Shah Summary Chief Complaint : pt presents today post surgery 3.5 weeks 02/04/22. 3 ankle views taken today. No nausea, vomiting fever noted. No sob or calf tenderness noted. Advance Directive : Yes Bladder Control Issues? : No Urine Leakage? : No Presence or absence of urinary incontinence assessed : Yes CPT-II Medication list doc'd in medical record : Yes Influenza immunization administered or previously received : Yes Pneumococcal vaccine administered or previously received : Yes Ilsa Shah - 03/01/2022 15:15 EST Measurements Ht/Wt Measurement Refused by Patient? : No Weight Measured : 125 kg(Converted to: 275 lb 9 oz, 275.578 lb) Height/Length Measured : 169 cm(Converted to: 5 ft 7 in, 66.54 in) Body Mass Index Measured : 43.77 kg/m2 Body Mass Index documented : Yes Ilsa Shah - 03/01/2022 15:15 EST Vitals Require BP : No Pain Present : No actual or suspected pain Pain : 5 Pain severity quantified : No pain present Ilsa Shah - 03/01/2022 15:15 EST Infection Screening - Ambulatory Exposure AND/OR close contact with a person under investigation or laboratory-confirmed COVID-19 individual within 14 days of symptom onset AND/OR any of the following: : No Do you live/work in a high risk situation (congregated living, hemodialysis, infusion clinic, residential, assisted living, assisted, homeless snf, etc.)? : No Ilsa Shah - 03/01/2022 15:15 EST Depression Screening Is patient currently : None of the Below Feeling Down, Depressed, Hopeless : Not at all Little Interest - Pleasure in Activities : Not at all Initial Depression Screen Score : 0 Depression Screening Score 0 : No Ilsa Shah - 03/01/2022 15:15 EST Falls Risk Assessment Is the patient ambulatory (mobile) : Yes Have you had 2 or more falls in the past year : No Have you had a fall within the past year that has caused an injury : No Patient screen for fall risk : no falls in last year OR 1 fall with no injury in last year Ilsa Shah - 03/01/2022 15:15 EST Normal [facility] Progress Note-Physicianon Progress Note-Physician Subjective Patient seen and evaluated bedside. No changes in the interval. She reports her pain is well controlled. Denies pain, shortness of breath, chest pain, fever, chills, N/C/D. Objective Vitals & Measurements T: 36.8 ?C (Oral) TMIN: 36.6 ?C (Oral) TMAX: 36.9 ?C (Oral) HR: 85 (Peripheral) RR: 16 BP: 136/76 SpO2: 94% Physical Exam Patient is vitally stable. Dressings are intact. Minimal strikethrough drainage noted on internal dressings. No drainage noted on right lower extremity. DP and PT pulses are easily palpable. Gross sensation is intact. CFT is brisk to all distal digits 1 through 5 bilateral feet. Moderate pitting edema noted. No clinical signs of infection noted. Trace are intact and skin is well approximated. Medications Inpatient acetaminophen-oxycodone 325 mg-5 mg oral tablet = Percocet, 1 tabs, ORAL, [id number], PRN acetaminophen-oxycodone 325 mg-5 mg oral tablet = Percocet, 2 tabs, ORAL, [id number], PRN albuterol hfa 90mcg/inh = Ventolin, Proventil inhaler, 2 puffs, Inhalation, [id number], PRN aspirin, 81 mg= 1 tabs, ORAL, DAILY WITH BREAKFAST carvedilol, 6.25 mg= 1 tabs, ORAL, BIDWM cyanocobalamin, 2000 mcg= 4 tabs, ORAL, DAILY Dilaudid, 1 mg= 1 mL, IV Push, [id number], PRN pantoprazole, 40 mg= 1 tabs, ORAL, DAILY Senokot S (docu 50mg/senna 8.6mg), 2 tabs, ORAL, BID, PRN Tylenol, 650 mg= 2 tabs, ORAL, [id number], PRN Assessment/Plan Primary osteoarthritis, right ankle S/p TCC with intramedullary nail, right lower extremity Postoperative pain Plan: -Patient seen and evaluated bedside with Dr. Khan. S/p RIGHT TTC arthrodesis with IM nail POD #3 -Pain is well controlled. Patient will be sent with prescription for Percocet 5/325 mg every 6 hours p.o. as needed for pain. -Nonweightbearing to the right lower extremity with use of crutches or walker. -Keep dressings clean dry and intact. -Rest, ice behind the right knee, and elevate with 2 pillows. -Patiently to follow-up with Dr. Khan in clinic on Tuesday. -Patient is vitally stable for discharge. -Continue home medications. -81 mg aspirin daily. -Disposition: Home today. Dr. Nathanael Buckley, PGY 2 Electronically Co-Signed by: CAM KHAN DPM on 02/28/2022 14:52 EST I personally saw and examined the patient. I have reviewed and agree with the Resident's findings, including all diagnostic interpretations, and treatment plans as written. Normal [facility] Progress Note-Physician Subjective No changes in the interval. S/p RIGHT TTC arthrodesis with IM nail POD #2. Patient has been urinating well. Reports constipation. Reports moderate pain to operative limb. Denies calf pain, shortness of breath, chest pain, fever, chills, N/C/D. Objective Vitals & Measurements T: 36.9 ?C (Oral) TMIN: 36.4 ?C (Oral) TMAX: 36.9 ?C (Oral) HR: 95 (Peripheral) RR: 18 BP: 148/76 SpO2: 93% Physical Exam Postoperative dressings were noted be intact. Some moderate strikethrough drainage noted on internal bandages. Right foot incisions are noted to be stable with intact trace. Minimal sanguinous drainage noted from anterior incision. Minimal periwound erythema. Moderate edema noted. No purulence, crepitus no fluctuance, malodor noted. DP PT pulses are palpable to the right lower extremity. CFT is brisk to digits 1-5 of the right lower extremity. No pain with calf squeeze. Ankle joints subtalar joint still in rectus position. Medications Inpatient acetaminophen-oxycodone 325 mg-5 mg oral tablet = Percocet, 1 tabs, ORAL, [id number], PRN acetaminophen-oxycodone 325 mg-5 mg oral tablet = Percocet, 2 tabs, ORAL, [id number], PRN albuterol hfa 90mcg/inh = Ventolin, Proventil inhaler, 2 puffs, Inhalation, [id number], PRN aspirin, 81 mg= 1 tabs, ORAL, DAILY WITH BREAKFAST carvedilol, 6.25 mg= 1 tabs, ORAL, BIDWM cyanocobalamin, 2000 mcg= 4 tabs, ORAL, DAILY Dilaudid, 1 mg= 1 mL, IV Push, [id number], PRN pantoprazole, 40 mg= 1 tabs, ORAL, DAILY Senokot S (docu 50mg/senna 8.6mg), 2 tabs, ORAL, BID, PRN Tylenol, 650 mg= 2 tabs, ORAL, [id number], PRN Assessment/Plan Primary osteoarthritis, right ankle S/p TCC with intramedullary nail, right lower extremity Postoperative pain Plan: -Patient seen and evaluated bedside with Dr. Khan. Patient is vitally stable. S/p RIGHT TTC arthrodesis with IM nail POD #2 -Continue home medications. -GI prophylaxis: Continue Senokot-S as needed twice daily -Continue pain regimen as needed -Nonweightbearing to the right lower extremity. -Rest, ice behind knee, elevate on 2 pillows. -Keep dressings clean, dry, and intact. May reinforce for strikethrough drainage with ABD and [place] wrap. -Continue working with PT OT. -Disposition: For potential discharge home tomorrow. -Patiently to follow-up with Dr. Khan next week in clinic. Dr. Nathanael Buckley, PGY 2 Electronically Co-Signed by: CAM KHAN DPM on 02/28/2022 14:50 EST I personally saw and examined the patient. I have reviewed and agree with the Resident's findings, including all diagnostic interpretations, and treatment plans as written. Normal [facility] Progress Note-Physician Subjective Patient is s/p tibiotalocalcaneal arthrodesis, right foot, DOS 02/04/22. she was seen resting comfortably in bedside this morning. She reports noticing some drainage through his dressing which nursing reinforced. She also reports some cramping/muscle spasms overnight. She denies any constitutional symptoms. Objective Vitals & Measurements T: 36.8 ?C (Oral) TMIN: 36.3 ?C (Temporal Artery) TMAX: 36.8 ?C (Oral) HR: 100 (Peripheral) RR: 17 BP: 125/74 SpO2: 93% WT: 120.4 kg WT: 120.4 kg (Dosing) BMI: 41.66 Physical Exam Right foot focused: Strike-through noted to the dressing. CFT to the digits was < 3 sec. All incision sites are well approximated with trace intact. Anterior ankle incision has some slight active sanguineous drainage during dressing change. No other drainage noted. Sensation is intact to the distal left leg. No pain noted during exam. Medications Inpatient acetaminophen-oxycodone 325 mg-5 mg oral tablet = Percocet, 1 tabs, ORAL, [id number], PRN acetaminophen-oxycodone 325 mg-5 mg oral tablet = Percocet, 2 tabs, ORAL, [id number], PRN albuterol hfa 90mcg/inh = Ventolin, Proventil inhaler, 2 puffs, Inhalation, [id number], PRN aspirin, 81 mg= 1 tabs, ORAL, DAILY WITH BREAKFAST carvedilol, 6.25 mg= 1 tabs, ORAL, BIDWM cyanocobalamin, 2000 mcg= 4 tabs, ORAL, DAILY Dilaudid, 1 mg= 1 mL, IV Push, [id number], PRN pantoprazole, 40 mg= 1 tabs, ORAL, DAILY Senokot S (docu 50mg/senna 8.6mg), 2 tabs, ORAL, BID, PRN Tylenol, 650 mg= 2 tabs, ORAL, [id number], PRN Lab Results Test Name Test Result Date/Time BUN 14 mg/dL 02/04/2022 22:07 EDT Na 140 mmol/L 02/04/2022 22:07 EDT K4.3 mmol/L 02/04/2022 22:07 EDT Chloride 106 mmol/L 02/04/2022 22:07 EDT CO2, venous 30.0 mmol/L 02/04/2022 22:07 EDT Glucose 136 mg/dL (High) 02/04/2022 22:07 EDT Creatinine 0.8 mg/dL 02/04/2022 22:07 EDT Estimated Creatinine Clearance 62.56 mL/min 02/04/2022 22:56 EDT Estimated Creatinine Clearance 50.05 mL/min 02/04/2022 07:40 EDT Calcium 9.3 mg/dL 02/04/2022 22:07 EDT BUN/Creat Ratio 17.3 02/04/2022 22:07 EDT Calculated Osmolality 282 mOsm/kg 02/04/2022 22:07 EDT Glomerular Filtration Rate >60 mL/min/1.73m? 02/04/2022 22:07 EDT GFR AA >60 02/04/2022 22:07 EDT WBC 15.3 x106/uL 02/04/2022 22:07 EDT\.br\ HGB 12.7 g/dL 02/04/2022 22:07 EDT\.br\ HCT 38.1 % 02/04/2022 22:07 EDT\.br\ MCV 90.6 fL 02/04/2022 22:07 EDT\.br\ MCH 30.3 pg 02/04/2022 22:07 EDT\.br\ MCHC 33.4 g/dL 02/04/2022 22:07 EDT\.br\ RDW 14.3 % 02/04/2022 22:07 EDT\.br\ Platelet 218 x103/uL 02/04/2022 22:07 EDT\.br\ MPV 8.7 fL 02/04/2022 22:07 EDT\.br\Assessment/Plan \.br\ 1) End stage ankle arthritis, right, s/p tibiotalocalcaneal arthrodesis\.br\ 2) End stage subtalar joint arthritis, right, s/p tibiotalocalcaneal arthrodesis\.br\ Plan:\.br\ Patient was examined and evaluated. All findings discussed with the patient.\.br\ Dressing removed. Strike-through noted.\.br\ New dressing applied consisting of betadine soaked gauze, kerlix, Cantrell compression bandage and a posterior splint.\.br\ Dressing to remain intact until follow-up.\.br\ Non-weight bearing to the right leg.\.br\ Follow-up in clinic 1 week after discharge.\.br\ Exam and plan discussed with Dr Khan and the podiatry team.\.br\ Electronically Co-Signed by: CAM KHAN DPM on 02/28/2022 14:49 EST I personally reviewed the chart and agree with the Resident's findings, including all diagnostic interpretations, and treatment plans as written. Normal [facility] AMB PODIATRY Physician Progr ess Noteon 02-15-2022 AMB PODIATRY Physician Progress Note Chief Complaint Pt. presents w/posterior splint, in wheelchair, 11 days post RT ankle/STJ arthrodesis. States toes looked red; worried about infection. Still taking Abx, steroid and pain meds. Pain today 5/10. She ambulates w/scooter at home. No fever, chills, sob. History of Present Illness Patient presents to clinic status post right ankle arthrodesis, subtalar joint arthrodesis, excision of fibula. Date of surgery: February 04 2022. She presents to clinic with assistance of a wheelchair today. She states her pain is approximately 5 out of 10 on the pain scale from 1-10. She has been nonweightbearing since her last visit however she does state that she has been fairly active in terms of her activity level since her last visit. She is concerned regarding the swelling in her toes and wants to make sure there is no infection brewing. She was prescribed Keflex at her last visit which she has been taking. She denies any constitutional symptoms today. Physical Exam Vitals & Measurements Height/Length Measured: 169 cm (02/15/22 14:54:00) Weight Measured: 125 kg (02/15/22 14:54:00) Body Mass Index Measured: 43.77 kg/m2 (02/15/22 14:54:00) Ht/Wt Measurement Refused by Patient?2: No (02/15/22:54:00) Depression Screening Scores Initial Depression Screen Score: 0 (02/15/22:54:00) Fall Risk Assessment Is the patient ambulatory (mobile): Yes (02/15/22:54:00) Have you had a fall within the past: No (02/15/22:54:00) Have you had 2 or more falls in the past: No (02/15/22:54:00) General: Alert and oriented x3. In no acute distress. Patient's vital signs appear stable, denies any constitutional symptoms. Lower Extremity Physical Exam: Vascular: DP and PT pulses are palpable, bilateral. CFT < 3 seconds to all digits, Bilateral. Edema is present to the operative extremity which is normal at this stage in the postoperative course Hair growth is present to the level of the digits, Bilateral. Skin temperature is within normal limits, warm to warm, from proximal tibial tuberosity to distal digits. Neurologic: Epicritic and protopathic sensations are grossly intact. Saph/sural/SP/DP/planta r sensation intact to light touch, Bilateral. Dermatologic: Skin temperature is within normal limits, warm to warm, from proximal tibial tuberosity to distal digits. Capillary fill time is less than 5 seconds to distal lower extremity. Ecchymosis is absent, bilateral. Incision appear grossly intact and well maintained. Skin incision is well coapted. Skin edges appear viable and well hydrated. Trace/sutures intact. Mild erythema noted to the dorsal right foot, does improve with elevation Musculoskeletal: Muscle strength testing was deferred, due to normal postoperative course. Patient has localized swelling to the perioperative site with no signs of infection. No pain with palpation or manipulation of operative site. Foot/ankle appears rectus in nature with longitudinal axis of tibia. Assessment/Plan This Visit Diagnosis 1. Cellulitis of right lower leg L03.115 Ordered: AMB Cast supplies short leg (11 years +) Q4038 1 unit, 02/15/2022 15:43:00 EDT, Cellulitis of right lower leg / Local edema / Primary osteoarthritis of right ankle / Osteoarthritis of right subtalar joint / Difficulty walking, 1 AMB Office/Outpt Est Pt Low MDM / 20-29 min 33104, 24 Unrelated E/M-same phys during postop 02/15/2022 15:43:00 EDT, Cellulitis of right lower leg / Local edema / Primary osteoarthritis of right ankle / Osteoarthritis of right subtalar joint / Difficulty walking AMB Short leg splint, right (calf-foot) [id number], 02/15/2022 15:43:00 EDT, Cellulitis of right lower leg / Local edema / Primary osteoarthritis of right ankle / Osteoarthritis of right subtalar joint / Difficulty walking, 1 2. Local edema R60.0 Ordered: AMB Cast supplies short leg (11 years +) Q4038 1 unit, 02/15/2022 15:43:00 EDT, Cellulitis of right lower leg / Local edema / Primary osteoarthritis of right ankle / Osteoarthritis of right subtalar joint / Difficulty walking, 1 AMB Office/Outpt Est Pt Low MDM / 20-29 min [id number], 24 Unrelated E/M-same phys during postop 02/15/2022 15:43:00 EDT, Cellulitis of right lower leg / Local edema / Primary osteoarthritis of right ankle / Osteoarthritis of right subtalar joint / Difficulty walking AMB Short leg splint, right (calf-foot) [id number], 02/15/2022 15:43:00 EDT, Cellulitis of right lower leg / Local edema / Primary osteoarthritis of right ankle / Osteoarthritis of right subtalar joint / Difficulty walking, 1 3. Primary osteoarthritis of right ankle M19.071 Ordered: acetaminophen-oxycodone , 1 tabs, ORAL, [id number], PRN PRN for pain, # 42 tabs, Refill(s) 0, Date: 02/15/2022 15:18:00 EDT, Pharmacy: [facility]/pharmacy #[id number], 1 tabs ORAL [id number],x10 days,PRN:for pain, Primary osteoarthritis of right ankle, 170, 02/04/2022 17:22:00 EDT, Height/Length... AMB Cast supplies short leg (11 years +) Q4038 1 unit, 02/15/2022 15:43:00 EDT, Cellulitis o (more content not included)... Normal [facility] AMB PODIATRY Physician Progress Note Chief Complaint Patient presents POD 6 DOS 02-04-2022- R ankle arthrodesis Arrived via wheel chair and posterior splint Pain 09/01 3RAV History of Present Illness Patient presents to clinic status post right ankle arthrodesis, subtalar joint arthrodesis, excision of fibula. Date of surgery: February 04 2022. She presents to clinic with assistance of a wheelchair today. She states her pain is approximately 5 out of 10 on the pain scale from 1-10. She states she has been able to remain nonweightbearing to the left lower extremity since discharging from the hospital. She states the previous dressing was a little bit tight at times and felt as if it was digging into her skin. She does present to clinic with her sister. She denies any constitutional symptoms today. Physical Exam Vitals & Measurements Systolic Blood Pressure: 148 mmHg High (02/10/22:15:00) Diastolic Blood Pressure: 80 mmHg (02/10/22:15:00) Mean Arterial Pressure: 103 mmHg (02/10/22:15:00) Height/Length Measured: 169 cm (02/10/22:15:00) Weight Measured: 125 kg (02/10/22:15:00) Body Mass Index Measured: 43.77 kg/m2 (02/10/22:15:00) Ht/Wt Measurement Refused by Patient?2: No (02/10/22:15:00) Depression Screening Scores Initial Depression Screen Score: 0 (02/10/22:15:00) Fall Risk Assessment Is the patient ambulatory (mobile): Yes (02/10/22 11:15:00) Have you had a fall within the past: No (02/10/22 11:15:00) Have you had 2 or more falls in the past: No (02/10/22:15:00) General: Alert and oriented x3. In no acute distress. Patient's vital signs appear stable, denies any constitutional symptoms. Lower Extremity Physical Exam: Vascular: DP and PT pulses are palpable, bilateral. CFT < 3 seconds to all digits, Bilateral. Edema is present to the operative extremity which is normal at this stage in the postoperative course Hair growth is present to the level of the digits, Bilateral. Skin temperature is within normal limits, warm to warm, from proximal tibial tuberosity to distal digits. Neurologic: Epicritic and protopathic sensations are grossly intact. Saph/sural/SP/DP/planta r sensation intact to light touch, Bilateral. Dermatologic: Skin temperature is within normal limits, warm to warm, from proximal tibial tuberosity to distal digits. Capillary fill time is less than 5 seconds to distal lower extremity. Ecchymosis is absent, bilateral. Incision appear grossly intact and well maintained. Skin incision is well coapted. Skin edges appear viable and well hydrated. Trace/sutures intact. Mild erythema noted to the subtalar joint incision Musculoskeletal: Muscle strength testing was deferred, due to normal postoperative course. Patient has localized swelling to the perioperative site with no signs of infection. No pain with palpation or manipulation of operative site. Foot/ankle appears rectus in nature with longitudinal axis of tibia. Xrays: 3 views of the right ankle were obtained in the office today. They indicate a normal osseous alignment and anatomic limb. The soft tissue envelope appears well maintained and intact. No evidence of hardware failure or loosening Excellent bony apposition of the tibia and talus as well as the talus and calcaneus Assessment/Plan This Visit Diagnosis 1. Cellulitis of right lower leg L03.115 Ordered: AMB Office/Outpt Est Pt Low MDM / 20-29 min 53383, 02/10/2022 09:17:00 EDT, Cellulitis of right lower leg / Local edema 2. Local edema R60.0 Ordered: AMB Office/Outpt Est Pt Low MDM / 20-29 min [id number], 02/10/2022 09:17:00 EDT, Cellulitis of right lower leg / Local edema 3. Primary osteoarthritis of right ankle M19.071 Ordered: AMB [employer] supplies short leg (11 years +) [id number] 1 unit, 02/10/2022 09:16:00 EDT, Primary osteoarthritis of right ankle / Osteoarthritis of right subtalar joint / Pain in right ankle and joints of right foot, 1 AMB Short leg splint, right (calf-foot) [id number], 02/10/2022 09:16:00 EDT, Primary osteoarthritis of right ankle / Osteoarthritis of right subtalar joint / Pain in right ankle and joints of right foot, 1 AMB X-ray, ankle, right; , min 3 views [id number], 02/10/2022 09:16:00 EDT, Primary osteoarthritis of right ankle / Osteoarthritis of right subtalar joint / Pain in right ankle and joints of right foot, 1 4. 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 Ordered: AMB [employer] short leg (11 years +) [id number] 1 unit, 02/10/2022 09:16:00 EDT, Primary osteoarthritis of right ankle / Osteoarthritis of right subtalar joint / Pain in right ankle and joints of right foot, 1 AMB Short leg splint, right (calf-foot) [id number], 02/10/2022 09:16:00 EDT, Primary osteoarthritis of right ankle / Osteoarthritis of right subtalar joint / Pain in right ankle and joints of right foot, 1 AMB X-ray, ankle, right; , min 3 views [id number], 02/10/2022 09:16:00 EDT, Primary osteoarthritis of right ankle / Osteoarthritis of right subtalar joint / Pain in right ankle a (more content not included)... Normal [facility] Ambulatory Clinical Summaryo n 02-15-2022 Ambulatory Clinical Summary SADIE FERNANDEZ :1950 Visit Date:02/15/2022 Ambulatory Visit Instructions Your Diagnosis Cellulitis of right lower leg Local edema Primary osteoarthritis of right ankle Osteoarthritis of right subtalar joint Difficulty walking Your Care Team Attending Physician - JYOTI ORTEGA, CAM Primary Care Physician - TRACE DOZIER Procedures Performed RIGHT ANKLE ARTHRODESIS,,RIGHT SUBTALAR JOINT ARTHRODESIS (02/04/2022) RIGHT TOTAL HIP REPLACEMENT (04/05/2019) Lumbar Laminectomy Posterior with Fusion. (05/09/2017) 2 BACK SURGERY WITH HARDWARE INSERTION 2007 GALLBLADDER 2008 Left acetabular revision left hip revision LEFT TOTAL HIP REPLACEMENT 2006 right total knee Discharge Vitals Height 169 cm Weight 125 kg BMI 43.77 Height/Length Measured: 169 cm (02/15/22 14:54:00) Weight Measured: 125 kg (02/15/22 14:54:00) Body Mass Index Measured: 43.77 kg/m2 (02/15/22 14:54:00) Ht/Wt Measurement Refused by Patient?2: No (02/15/22 14:54:00) What to do next Scheduled Follow-Up Appointments Appointment Type Reason for visit Day With Date Time Where [facility] POSTERIR SPLINT Tuesday Cam Khan DPJose February 17, 2022 11:00 am EDT Podiatry [address] [facility] [id number] Medications What How Much When Why Instructions Changed acetaminophen-oxycodone (acetaminophen-oxycodon e 325 mg-5 mg oral tablet = Percocet) 1 Tabs Oral EVERY SIX HOURS as needed for for pain Primary osteoarthritis of right ankle Duration: 7 Days Changed acetaminophen-oxycodone (acetaminophen-oxycodon e 325 mg-5 mg oral tablet = Percocet) 2 Tabs Oral EVERY SIX HOURS as needed for for pain Status post surgery Duration: 7 Days Changed acetaminophen-oxycodone (acetaminophen-oxycodon e 325 mg-5 mg oral tablet = Percocet) 1 Tabs Oral EVERY SIX HOURS as needed for for pain Primary osteoarthritis of right ankle Duration: 7 Days Changed acetaminophen-oxycodone (acetaminophen-oxycodon e 325 mg-5 mg oral tablet = Percocet) 1 Tabs Oral EVERY SIX HOURS as needed for for pain Primary osteoarthritis of right ankle Duration: 10 Days Pickup at [facility]/pharmacy #[id number] Unchanged albuterol = Proventil, Ventolin (albuterol 90 mcg/ inh inhalation aerosol) 2 Puffs Inhalation EVERY FOUR HOURS as needed for Wheezing or Dyspnea Unchanged aspirin (aspirin 81 mg oral delayed release tablet) 1 Tabs Oral DAILY WITH BREAKFAST Unchanged calcium carbonate (calcium (as carbonate) 600 mg oral tablet) 2 Tabs Oral TWICE A DAY Unchanged carvedilol (carvedilol 6.25 mg oral tablet) 1 Tabs Oral TWICE A DAY Unchanged cephalexin (Keflex 500 mg oral capsule) 1 Capsules Oral EVERY EIGHT HOURS Duration: 10 Days Unchanged cyanocobalamin (cyanocobalamin 1000 mcg oral tablet) 2 Tabs Oral DAILY Unchanged cyclobenzaprine = Flexeril (cyclobenzaprine 10 mg oral tablet) 1 Tabs Oral EVERY EIGHT HOURS as needed for as needed for muscle spasm Unchanged diclofenac (diclofenac sodium (= Voltaren) 75 mg oral delayed release tablet) 1 Tabs Oral EVERY OTHER DAY as needed for as needed for pain Unchanged ferrous sulfate ( iron ) (ferrous sulfate 325 mg (65 mg elemental iron) oral tablet) 1 Tabs Oral DAILY Unchanged ginkgo (Ginkgo Biloba) 1 Tabs Oral DAILY Unchanged ibuprofen = Motrin, Advil (IBU 800 mg oral tablet) 1 Tabs Oral THREE TIMES A DAY as needed for as needed for pain Unchanged methylPREDNISolone (Medrol 4 mg oral tablet) 1 Packets Oral DAILY Duration: 6 Days as directed on package labeling Unchanged multivitamin with minerals 1 Tabs Oral DAILY Unchanged Non-Formulary Med (BIO-CMP (CALIUM,MAGNESIUM,PHOSP HATE) OTC) 1 Tabs Oral DAILY Unchanged omeprazole (omeprazole 40 mg oral delayed release capsule) 1 Capsules Oral DAILY Pharmacy Information [id number]: [address], [place] [phone] Allergies No Known Medication Allergies Pollen allergy (sneezing) Problems Ongoing - Any problem that you are currently receiving treatment for. Cellulitis of right lower leg Difficulty walking Local edema Lumbar stenosis Osteoarthritis of right subtalar joint Pain in right ankle and joints of right foot Primary osteoarthritis of right ankle Spondylolisthesis Historical - Any problem that you are no longer receiving treatment for. Arthritis Asthma Back pain High Blood Pressure Reflux Common Emergency Awareness Tips IS IT A STROKE? Act FAST and Check for these signs: FACE Does the face look uneven? ARM Does one arm drift down? SPEECH Does their speech sound strange? TIME Call at any sign of stroke Heart Attack Signs Chest discomfort: Most heart attacks involve discomfort in the center of the chest and lasts more than a few minutes, or goes away and comes back. It can feel like uncomfortable pressure, squeezing, fullness or pain. Discomfort in upper body: Symptoms can include pain or discomfort in one or both arms, back, neck, j (more content not included)... Normal [facility] Ambulatory Clinical Summary SADIE FERNANDEZ :1950 Visit Date:02/15/2022 Ambulatory Visit Instructions Your Diagnosis Cellulitis of right lower leg Local edema Primary osteoarthritis of right ankle Osteoarthritis of right subtalar joint Difficulty walking Your Care Team Attending Physician - CAM KHAN DPM Primary Care Physician - TRACE DOZIER Procedures Performed RIGHT ANKLE ARTHRODESIS,,RIGHT SUBTALAR JOINT ARTHRODESIS (02/04/2022) RIGHT TOTAL HIP REPLACEMENT (04/05/2019) Lumbar Laminectomy Posterior with Fusion. (05/09/2017) 2 BACK SURGERY WITH HARDWARE INSERTION 2007 GALLBLADDER 2008 Left acetabular revision left hip revision LEFT TOTAL HIP REPLACEMENT 2007 right total knee Discharge Vitals Height 169 cm Weight 125 kg BMI 43.77 Height/Length Measured: 169 cm (02/15/22 14:54:00) Weight Measured: 125 kg (02/15/22 14:54:00) Body Mass Index Measured: 43.77 kg/m2 (02/15/22 14:54:00) Ht/Wt Measurement Refused by Patient?2: No (02/15/22 14:54:00) What to do next Scheduled Follow-Up Appointments Appointment Type Reason for visit Day With Date Time Where [facility] POSTERIR SPLINT Tuesday Cam Khan DPM February 17, 2022 11:00 am EDT Podiatry [address] [place] [id number] Medications What How Much When Why Instructions Changed acetaminophen-oxycodone (acetaminophen-oxycodon e 325 mg-5 mg oral tablet = Percocet) 2 Tabs Oral EVERY SIX HOURS as needed for for pain Status post surgery Duration: 7 Days Changed acetaminophen-oxycodone (acetaminophen-oxycodon e 325 mg-5 mg oral tablet = Percocet) 1 Tabs Oral EVERY SIX HOURS as needed for for pain Primary osteoarthritis of right ankle Duration: 7 Days Changed acetaminophen-oxycodone (acetaminophen-oxycodon e 325 mg-5 mg oral tablet = Percocet) 1 Tabs Oral EVERY SIX HOURS as needed for for pain Primary osteoarthritis of right ankle Duration: 7 Days Changed acetaminophen-oxycodone (acetaminophen-oxycodon e 325 mg-5 mg oral tablet = Percocet) 1 Tabs Oral EVERY SIX HOURS as needed for for pain Primary osteoarthritis of right ankle Duration: 10 Days Pickup at [facility]/pharmacy #[id number] Unchanged albuterol = Proventil Ventolin (albuterol 90 mcg/ inh inhalation aerosol) 2 Puffs Inhalation EVERY FOUR HOURS as needed for Wheezing or Dyspnea Unchanged aspirin (aspirin 81 mg oral delayed release tablet) 1 Tabs Oral DAILY WITH BREAKFAST Unchanged calcium carbonate (calcium (as carbonate) 600 mg oral tablet) 2 Tabs Oral TWICE A DAY Unchanged carvedilol (carvedilol 6.25 mg oral tablet) 1 Tabs Oral TWICE A DAY Unchanged cephalexin (Keflex 500 mg oral capsule) 1 Capsules Oral EVERY EIGHT HOURS Duration: 10 Days Unchanged cyanocobalamin (cyanocobalamin 1000 mcg oral tablet) 2 Tabs Oral DAILY Unchanged cyclobenzaprine = Flexeril (cyclobenzaprine 10 mg oral tablet) 1 Tabs Oral EVERY EIGHT HOURS as needed for as needed for muscle spasm Unchanged diclofenac (diclofenac sodium (= Voltaren) 75 mg oral delayed release tablet) 1 Tabs Oral EVERY OTHER DAY as needed for as needed for pain Unchanged ferrous sulfate ( iron ) (ferrous sulfate 325 mg (65 mg elemental iron) oral tablet) 1 Tabs Oral DAILY Unchanged ginkgo (Ginkgo Biloba) 1 Tabs Oral DAILY Unchanged ibuprofen = Motrin, Advil (IBU 800 mg oral tablet) 1 Tabs Oral THREE TIMES A DAY as needed for as needed for pain Unchanged methylPREDNISolone (Medrol 4 mg oral tablet) 1 Packets Oral DAILY Duration: 6 Days as directed on package labeling Unchanged multivitamin with minerals 1 Tabs Oral DAILY Unchanged Non-Formulary Med (BIO-CMP (CALIUM,MAGNESIUM,PHOSP HATE) OTC) 1 Tabs Oral DAILY Unchanged omeprazole (omeprazole 40 mg oral delayed release capsule) 1 Capsules Oral DAILY Pharmacy Information [facility]/pharmacy #[id number]: [address] [place], [place] [phone] Allergies No Known Medication Allergies Pollen allergy (sneezing) Problems Ongoing - Any problem that you are currently receiving treatment for. Cellulitis of right lower leg Difficulty walking Local edema Lumbar stenosis Osteoarthritis of right subtalar joint Pain in right ankle and joints of right foot Primary osteoarthritis of right ankle Spondylolisthesis Historical - Any problem that you are no longer receiving treatment for. Arthritis Asthma Back pain High Blood Pressure Reflux Common Emergency Awareness Tips IS IT A STROKE? Act FAST and Check for these signs: FACE Does the face look uneven? ARM Does one arm drift down? SPEECH Does their speech sound strange? TIME Call at any sign of stroke Heart Attack Signs Chest discomfort: Most heart attacks involve discomfort in the center of the chest and lasts more than a few minutes, or goes away and comes back. It can feel like uncomfortable pressure, squeezing, fullness or pain. Discomfort in upper body: Symptoms can include pain or discomfort in one or both arms, back, neck, j (more content not included)... Normal [facility] Comprehensive Intake - Texto n 02-15-2022 Comprehensive Intake - Text Comprehensive Intake Entered On: 02/15/2022 14:59 EDT Performed On: 02/15/2022 14:54 EDT by Corine Ferrer Summary Chief Complaint : Pt. presents w/posterior splint, in wheelchair, 11 days post RT ankle/STJ arthrodesis. States toes looked red; worried about infection. Still taking Abx, steroid and pain meds. Pain today 09/01. She ambulates w/scooter at home. No fever, chills, sob. Advance Directive : Yes Bladder Control Issues? : No Urine Leakage? : No Presence or absence of urinary incontinence assessed : Yes CPT-II Medication list doc'd in medical record : Yes Influenza immunization administered or previously received : Yes Pneumococcal vaccine administered or previously received : Yes Corine Ferrer - 02/15/2022 14:54 EDT Measurements Ht/Wt Measurement Refused by Patient? : No Weight Measured : 125 kg(Converted to: 275 lb 9 oz, 275.578 lb) Height/Length Measured : 169 cm(Converted to: 5 ft 7 in, 66.54 in) Body Mass Index Measured : 43.77 kg/m2 Body Mass Index documented : Yes Corine Ferrer - 02/15/2022 14:54 EDT Vitals Require BP : No Pain Present : No actual or suspected pain Pain : 5 Pain severity quantified : No pain present Corine Ferrer - 02/15/2022 14:54 EDT Infection Screening - Ambulatory Exposure AND/OR close contact with a person under investigation or laboratory-confirmed COVID-19 individual within 14 days of symptom onset AND/OR any of the following: : No Do you live/work in a high risk situation (congregated living, hemodialysis, infusion clinic, residential, assisted living, assisted, homeless snf, etc.)? : No Corine Ferrer - 02/15/2022 14:54 EDT Depression Screening Is patient currently : None of the Below Feeling Down, Depressed, Hopeless : Not at all Little Interest - Pleasure in Activities : Not at all Initial Depression Screen Score : 0 Depression Screening Score 0 : No Corine Ferrer - 02/15/2022 14:54 EDT Falls Risk Assessment Is the patient ambulatory (mobile) : Yes Have you had 2 or more falls in the past year : No Have you had a fall within the past year that has caused an injury : No Patient screen for fall risk : no falls in last year OR 1 fall with no injury in last year Corine Ferrer - 02/15/2022 14:54 EDT Normal [facility] Phone Msgon 02-12-2022 Phone Msg - From: Tracey Villagomez To: CAM KHAN DPM; Sent: 02/12/2022 09:04:58 EDT Subject: refill Caller Name: JIM SADIE Porras; Caller Number: H Patient called requesting refill on pain medication. Normal [facility] Ambulatory Clinical Summaryo n 02-10-2022 Ambulatory Clinical Summary SADIE FERNANDEZ :1950 Visit Date:02/10/2022 Ambulatory Visit Instructions Your Diagnosis Primary osteoarthritis of right ankle Pain in right ankle and joints of right foot Your Care Team Attending Physician - CAM KHAN DPM Primary Care Physician - TRACE DOZIER Procedures Performed RIGHT ANKLE ARTHRODESIS,,RIGHT SUBTALAR JOINT ARTHRODESIS (02/04/2022) RIGHT TOTAL HIP REPLACEMENT (04/05/2019) Lumbar Laminectomy Posterior with Fusion. (05/09/2017) 2 BACK SURGERY WITH HARDWARE INSERTION 2006 GALLBLADDER 2007 Left acetabular revision left hip revision LEFT TOTAL HIP REPLACEMENT 2006 right total knee Discharge Vitals Blood Pressure 148/80 Height 169 cm Weight 125 kg BMI 43.77 Systolic Blood Pressure: 148 mmHg High (02/10/22 11:15:00) Diastolic Blood Pressure: 80 mmHg (02/10/22 11:15:00) Mean Arterial Pressure: 103 mmHg (02/10/22 11:15:00) Height/Length Measured: 169 cm (02/10/22 11:15:00) Weight Measured: 125 kg (02/10/22 11:15:00) Body Mass Index Measured: 43.77 kg/m2 (02/10/22 11:15:00) Ht/Wt Measurement Refused by Patient?2: No (02/10/22 11:15:00) What to do next Scheduled Follow-Up Appointments Appointment Type Reason for visit Day With Date Time Where [facility] POSTERIR SPLINT Tuesday Cam Khan DPM February 17, 2022 11:00 am EDT Podiatry [address] [facility] [id number] Medications What How Much When Why Instructions New cephalexin (Keflex 500 mg oral capsule) 1 Capsules Oral EVERY EIGHT HOURS Duration: 10 Days Pickup at [facility]/pharmacy #[id number] New methylPREDNISolone (Medrol 4 mg oral tablet) 1 Packets Oral DAILY Duration: 6 Days as directed on package labeling Pickup at [facility]/pharmacy #[id number] Changed acetaminophen-oxycodone (acetaminophen-oxycodon e 325 mg-5 mg oral tablet = Percocet) 1 Tabs Oral EVERY SIX HOURS as needed for for pain Primary osteoarthritis of right ankle Duration: 7 Days Changed acetaminophen-oxycodone (acetaminophen-oxycodon e 325 mg-5 mg oral tablet = Percocet) 1 Tabs Oral EVERY SIX HOURS as needed for for pain Primary osteoarthritis of right ankle Duration: 7 Days Pickup at [facility]/pharmacy #[id number] Unchanged albuterol = Proventil, Ventolin (albuterol 90 mcg/ inh inhalation aerosol) 2 Puffs Inhalation EVERY FOUR HOURS as needed for Wheezing or Dyspnea Unchanged aspirin (aspirin 81 mg oral delayed release tablet) 1 Tabs Oral DAILY WITH BREAKFAST Unchanged calcium carbonate (calcium (as carbonate) 600 mg oral tablet) 2 Tabs Oral TWICE A DAY Unchanged carvedilol (carvedilol 6.25 mg oral tablet) 1 Tabs Oral TWICE A DAY Unchanged cyanocobalamin (cyanocobalamin 1000 mcg oral tablet) 2 Tabs Oral DAILY Unchanged cyclobenzaprine = Flexeril (cyclobenzaprine 10 mg oral tablet) 1 Tabs Oral EVERY EIGHT HOURS as needed for as needed for muscle spasm Unchanged diclofenac (diclofenac sodium (= Voltaren) 75 mg oral delayed release tablet) 1 Tabs Oral EVERY OTHER DAY as needed for as needed for pain Unchanged ferrous sulfate ( iron ) (ferrous sulfate 325 mg (65 mg elemental iron) oral tablet) 1 Tabs Oral DAILY Unchanged ginkgo (Ginkgo Biloba) 1 Tabs Oral DAILY Unchanged ibuprofen = Motrin, Advil (IBU 800 mg oral tablet) 1 Tabs Oral THREE TIMES A DAY as needed for as needed for pain Unchanged multivitamin with minerals 1 Tabs Oral DAILY Unchanged Non-Formulary Med (BIO-CMP (CALIUM,MAGNESIUM,PHOSP HATE) OTC) 1 Tabs Oral DAILY Unchanged omeprazole (omeprazole 40 mg oral delayed release capsule) 1 Capsules Oral DAILY Pharmacy Information [facility]/pharmacy #[id number]: [address], [place] [phone] Allergies No Known Medication Allergies Pollen allergy (sneezing) Problems Ongoing - Any problem that you are currently receiving treatment for. Difficulty walking Local edema Lumbar stenosis Pain in right ankle and joints of right foot Primary osteoarthritis of right ankle Spondylolisthesis Historical - Any problem that you are no longer receiving treatment for. Arthritis Asthma Back pain High Blood Pressure Reflux Common Emergency Awareness Tips IS IT A STROKE? Act FAST and Check for these signs: FACE Does the face look uneven? ARM Does one arm drift down? SPEECH Does their speech sound strange? TIME Call at any sign of stroke Heart Attack Signs Chest discomfort: Most heart attacks involve discomfort in the center of the chest and lasts more than a few minutes, or goes away and comes back. It can feel like uncomfortable pressure, squeezing, fullness or pain. Discomfort in upper body: Symptoms can include pain or discomfort in one or both arms, back, neck, jaw or stomach. Shortness of breath: With or without discomfort. Other signs: Breaking out in a cold sweat, nausea, or lightheaded. Remember, MINUTES DO MATTER. If you experience any of these heart attack warning signs, call to get immediate medical attention! E (more content not included)... Normal [facility] Comprehensive Intake - Texto n 02-10-2022 Comprehensive Intake - Text Comprehensive Intake Entered On: 02/10/2022 11:18 EDT Performed On: 02/10/2022 11:15 EDT by Dilcia Rogers LPN Summary Chief Complaint : Patient presents POD 6 DOS --2021- R ankle arthrodesis Arrived via wheel chair and posterior splint Pain 09/01 3RAV Advance Directive : Yes Bladder Control Issues? : No Urine Leakage? : No Presence or absence of urinary incontinence assessed : Yes CPT-II Medication list doc'd in medical record : Yes Influenza immunization administered or previously received : No Pneumococcal vaccine administered or previously received : No Dilcia Rogers LPN - 02/10/2022 11:15 EDT Measurements Ht/Wt Measurement Refused by Patient? : No Weight Measured : 125 kg(Converted to: 275 lb 9 oz, 275.578 lb) Height/Length Measured : 169 cm(Converted to: 5 ft 7 in, 66.54 in) Body Mass Index Measured : 43.77 kg/m2 Body Mass Index documented : Yes Dilcia Rogers LPN - 02/10/2022 11:15 EDT Vitals Require BP : Yes Systolic Blood Pressure : 148 mmHg (HI) Diastolic Blood Pressure : 80 mmHg Mean Arterial Pressure : 103 mmHg Last Systolic BP : greater than or equal to 140 mmHg Last Diastolic BP : 80-89 mmHg Pain Present : No actual or suspected pain Pain : 5 Pain severity quantified : No pain present Dilcia Rogers LPN - 02/10/2022 11:15 EDT Infection Screening - Ambulatory Exposure AND/OR close contact with a person under investigation or laboratory-confirmed COVID-19 individual within 14 days of symptom onset AND/OR any of the following: : No Do you live/work in a high risk situation (congregated living, hemodialysis, infusion clinic, residential, assisted living, assisted, homeless snf, etc.)? : No Dilcia Rogers LPN - 02/10/2022 11:15 EDT Depression Screening Is patient currently : None of the Below Feeling Down, Depressed, Hopeless : Not at all Little Interest - Pleasure in Activities : Not at all Initial Depression Screen Score : 0 Depression Screening Score 0 : No Dilcia Rogers LPN - 02/10/2022 11:15 EDT Falls Risk Assessment Is the patient ambulatory (mobile) : Yes Have you had 2 or more falls in the past year : No Have you had a fall within the past year that has caused an injury : No Patient screen for fall risk : no falls in last year OR 1 fall with no injury in last year Sue SILVIADilcia - 02/10/2022 11:15 EDT Normal [facility] APAP 325MG/OXYCODONE 5MG TAB on 02-07-2022 APAP 325MG/OXYCODONE 5MG TAB PRN Response Entered On: 02/07/2022 14:20 EDT Performed On: 02/07/2022 15:00 EDT by Earnestine Campbell RN Intervention Information: acetaminophen-oxycodone Performed by Earnestine Campbell RN on 02/07/2022 14:00:00 EDT acetaminophen-oxycodone (acetaminophen-oxycodon e 325 mg-5 mg oral tablet = Percocet),2tabs ORAL,Severe Pain PRN Medication Response PRN Medication used for : Pain PRN Medication Effectiveness : Yes PRN Response Pain Scales : Numeric (8yrs & older) Numeric Pain Scale Age : Numeric (8yrs & older) Actual time of reassessment : No (not needed time is correct) Earnestine Campbell RN - 02/07/2022 14:20 EDT Numeric Pain Scale Numeric Pain Scale : 7 = Severe Pain Numeric Pain Score : 7 Earnestine Campbell RN - 02/07/2022 14:20 EDT [facility] Comment on above: Order Comment: Check for other orders containing acetaminophen before administering. Max total daily amount is 4000 mg. APAP 325MG/OXYCODONE 5MG TAB PRN Response Entered On: 02/07/2022 10:34 EDT Performed On: 02/07/2022 10:51 EDT by Earnestine Campbell RN Intervention Information: acetaminophen-oxycodone Performed by Earnestine Campbell RN on 02/07/2022 09:51:00 EDT acetaminophen-oxycodone (acetaminophen-oxycodon e 325 mg-5 mg oral tablet = Percocet),2tabs ORAL,Severe Pain PRN Medication Response PRN Medication used for : Pain PRN Medication Effectiveness : Yes PRN Response Pain Scales : Numeric (8yrs & older) Numeric Pain Scale Age : Numeric (8yrs & older) Actual time of reassessment : No (not needed time is correct) Earnestine Campbell RN - 02/07/2022 10:34 EDT Numeric Pain Scale Numeric Pain Scale : 8 = Severe Pain Numeric Pain Score : 8 Earnestine Campbell RN - 02/07/2022 10:34 EDT [facility] Comment on above: Order Comment: Check for other orders containing acetaminophen before administering. Max total daily amount is 4000 mg. APAP 325MG/OXYCODONE 5MG TAB PRN Response Entered On: 02/07/2022 6:46 EDT Performed On: 02/07/2022 6:37 EDT by Naheed Laurent RN Intervention Information: acetaminophen-oxycodone Performed by Naheed Laurent RN on 02/07/2022 05:37:00 EDT acetaminophen-oxycodone (acetaminophen-oxycodon e 325 mg-5 mg oral tablet = Percocet),2tabs ORAL,Severe Pain PRN Medication Response PRN Medication used for : Pain PRN Medication Effectiveness : Yes PRN Response Pain Scales : Numeric (8yrs & older) Numeric Pain Scale Age : Numeric (8yrs & older) Actual time of reassessment : No (not needed time is correct) Naheed Laurent RN - 02/07/2022 6:46 EDT Numeric Pain Scale Numeric Pain Scale : 7 = Severe Pain Numeric Pain Score : 7 Naheed Laurent RN - 02/07/2022 6:46 EDT [facility] Comment on above: Order Comment: Check for other orders containing acetaminophen before administering. Max total daily amount is 4000 mg. APAP 325MG/OXYCODONE 5MG TAB PRN Response Entered On: 02/07/2022 1:40 EDT Performed On: 02/07/2022 1:13 EDT by Naheed Laurent RN Intervention Information: acetaminophen-oxycodone Performed by Naheed Laurent RN on 02/07/2022 00:13:00 EDT acetaminophen-oxycodone (acetaminophen-oxycodon e 325 mg-5 mg oral tablet = Percocet),2tabs ORAL,Severe Pain PRN Medication Response PRN Medication used for : Pain PRN Medication Effectiveness : Yes PRN Response Pain Scales : Numeric (8yrs & older) Numeric Pain Scale Age : Numeric (8yrs & older) Actual time of reassessment : No (not needed time is correct) Naheed Laurent RN - 02/07/2022 1:40 EDT Numeric Pain Scale Numeric Pain Scale : 7 = Severe Pain Numeric Pain Score : 7 Naheed Laurent RN - 02/07/2022 1:40 EDT Normal [facility] Comment on above: Order Comment: Check for other orders containing acetaminophen before administering. Max total daily amount is 4000 mg. APAP 325MG/OXYCODONE 5MG TAB PRN Response Entered On: 02/07/2022 0:44 EDT Performed On: 02/06/2022 21:07 EDT by Naheed Laurent RN Intervention Information: acetaminophen-oxycodone Performed by Naheed Laurent RN on 02/06/2022 20:07:00 EDT acetaminophen-oxycodone (acetaminophen-oxycodon e 325 mg-5 mg oral tablet = Percocet),2tabs ORAL,Severe Pain PRN Medication Response PRN Medication used for : Pain PRN Medication Effectiveness : Yes PRN Response Pain Scales : Numeric (8yrs & older) Numeric Pain Scale Age : Numeric (8yrs & older) Actual time of reassessment : No (not needed time is correct) Naheed Laurent RN - 02/07/2022 0:43 EDT Numeric Pain Scale Numeric Pain Scale : 8 = Severe Pain Numeric Pain Score : 8 Naheed Laurent RN - 02/07/2022 0:43 EDT Normal [facility] Comment on above: Order Comment: Check for other orders containing acetaminophen before administering. Max total daily amount is 4000 mg. Discharge Educationon 2021 Discharge Education Patient Education Material Normal [facility] Inpatient Patient Summaryon 02-07-2022 Inpatient Patient Summary [facility] Discharge Instructions [address] [place] [address] \.br\(Patient Copy)\.br\ \.br\ \.br\Name: SADIE FERNANDEZ Vern : 1950 \.br\Diagnosis: \.br\ \.br\Allergies: No Known Medication Allergies; Pollen allergy\.br\ \.br\Registration Date: 02/04/22\.br\.br\.br\ \.br\ Current Date Time: 02/07/2022 13:48:58 \.br\ \.br\Address: [address] [place] [address] \.br\Phone: [phone] \.br\ \.br\Primary Care Provider: \.br\Name: TRACE DOZIER Jose\.br\Phone: [phone] \.br\ \.br\Thank you for choosing [facility] for your care. You are very important to us. Our goal is to demonstrate our high quality medical care and provide you with a very good patient experience.\.br\ You may receive a survey about our service. Please take the time to complete the survey and return it so we can continue to enhance our service.\.br\ Thank you again for allowing [facility] to care for your medical needs. If you have any questions about your care or follow up information please contact your doctor.\.br\.br\Follow -up Instructions\.br\.br\ .br\With: Address: When: \.br\CAM KHAN, Podiatry [address] [facility], [address] [address]\.br\ [facility] (1) \.br\Comments: \.br\-Prescription for Percocet 5/325 mg every 6 hours p.o. as needed for pain - sent electronically to pharmacy \.br\-Nonweightbearing to the right lower extremity with use of crutches or walker. \.br\-Keep dressings clean dry and intact. \.br\-Rest, ice behind the right knee, and elevate with 2 pillows. \.br\-Follow-up with Dr. Khan in clinic on Tuesday. \.br\-81 mg aspirin daily. \.br\ \.br\.br\.br\.br\.b r\.br\Medication Information\.br\Only Take The Medicines On This List. \.br\Keep This List and Bring It To Your Next Appointment. \.br\Medicines To Take At Home: \.br\ Medicine Name\.br\ (Generic Name) Amount to Take How to Take it How Often to Take it Additional Instructions Next Dose Due \.br\ acetaminophen-oxycodone 325 mg-5 mg oral tablet = Percocet\.br\(acetamino phen-oxycodone) 1 tabs By Mouth EVERY SIX HOURS Take as needed for pain\.br\.br\.br\.br \.br\.br\.br\.br\Fo r 7 days \.br\ albuterol 90 mcg/inh inhalation aerosol\.br\(albuterol = proventil, ventolin) 2 puffs Inhalation EVERY FOUR HOURS Take as needed for Wheezing or Dyspnea\.br\.br\.br\ .br\.br\.br\ \.br\ aspirin 81 mg oral delayed release tablet\.br\(aspirin) 81 mg By Mouth DAILY WITH BREAKFAST \.br\ calcium (as carbonate) 600 mg oral tablet\.br\(calcium carbonate) 1,200 mg By Mouth TWICE A DAY \.br\ carvedilol 6.25 mg oral tablet\.br\(carvedilol) 6.25 mg By Mouth TWICE A DAY \.br\ cyanocobalamin 1000 mcg oral tablet\.br\(cyanocobala min) 2,000 mcg By Mouth DAILY \.br\ cyclobenzaprine 10 mg oral tablet\.br\(cyclobenzap rine = flexeril) 10 mg By Mouth EVERY EIGHT HOURS Take as needed for muscle spasm\.br\.br\.br\.b r\.br\.br\.br\.br\ \.br\ diclofenac sodium (= Voltaren) 75 mg oral delayed release tablet\.br\(diclofenac) 75 mg By Mouth EVERY OTHER DAY Take as needed for pain\.br\.br\.br\.br \.br\.br\.br\.br\ \.br\ ferrous sulfate 325 mg (65 mg elemental iron) oral tablet\.br\(ferrous sulfate ( iron )) 325 mg By Mouth DAILY \.br\ Ginkgo Biloba\.br\(ginkgo) 1 tabs By Mouth DAILY \.br\ IBU 800 mg oral tablet\.br\(ibuprofen = motrin, advil) 800 mg By Mouth THREE TIMES A DAY Take as needed for pain\.br\.br\.br\.br \.br\.br\.br\.br\ \.br\ multivitamin with minerals\.br\(multivita min with minerals) 1 tabs By Mouth DAILY \.br\ BIO-CMP (CALIUM,MAGNESIUM,PHOSP HATE) OTC\.br\(non-formulary med) 1 tabs By Mouth DAILY \.br\ omeprazole 40 mg oral delayed release capsule\.br\(omeprazole ) 40 mg By Mouth DAILY \.br\.br\Understanding your home medicine is important to keeping you healthy. If you are taking medications that are not on the preceding list, please call your doctor to see if you are to continue taking that medication. It is important that you do not skip or make up doses. If you are ordered an antibiotic, finish taking all the medicine unless your doctor tells you otherwise. Call your doctor if you have any questions or problems. Take the medicine list with you to all follow up appointments.\.br\.br\ Patient education materials, if any, will display below\.br\.br\ Prescription leaflets, if any, will display below\.br\ \.br\Guidelines for a Healthy Lifestyle:\.br\ ACTIVITY Follow your doctors instructions regarding staying active\.br\Balance rest and activity. Continue to do the activities you enjoy if okay with your doctor. Both activity and rest are important to the health of your heart.\.br\Avoid people with colds / flu.\.br\ \.br\ SMOKING Do not smoke or use other nicotine products. Nicotine is in all tobacco products. Nicotine causes damage to the heart, brain, and lungs. It is never too late to quit. Even if you have smoked for years, you can benefit from quitting or smoking less.\.br\If you or a loved one is in (more content not included)... Normal [facility] Intake and Output-Texton Intake and Output-Text Intake and Output Entered On: 02/07/2022 10:49 EDT Performed On: 02/07/2022 10:49 EDT by Christina Bartlett I&O Urine Voided : 400 mL Christina Bartlett - 02/07/2022 10:49 EDT Normal [facility] Intake and Output-Text Intake and Output Entered On: 02/07/2022 9:06 EDT Performed On: 02/07/2022 9:05 EDT by Christina Bartlett I&O Oral : 240 mL Christina Bartlett - 02/07/2022 9:05 EDT Normal [facility] Briefcase Sewer Detailson 2021 Briefcase Sewer Details Briefcase Sewer Details Entered On: 02/07/2022 0:01 EDT Performed On: 02/07/2022 0:01 EDT by Naheed Laurent RN Briefcase Sewer Details Transport Mode Order Detail EV : Wheelchair Isolation Precautions RTF : Level of Care Order, 02/05/2022 16:08:00 EDT, SAME BED LOCATION Admit as Inpatient, CAM KHAN DPM, Completed Post Procedure Location of Care, 02/04/2022 12:35:00 EDT, Surgical Unit (5E), Ordered Oxygen Therapy, 02/04/2022 12:24:00 EDT, Nasal Cannula, 3L, Constant Order, overnight if SpO2 less than 95%, Ordered Communication CONSTANT Order, 02/04/2022 12:07:00 EDT, Constant Order, STAT EKG for Chest Pain, STAT ABGs for Acute Respiratory Distress, STAT Potassium/Magnesium for any significant change in condition/rhythm, Ordered Communication CONSTANT Order, 02/04/2022 12:07:00 EDT, Constant Order, Current ACLS Provider may, Initiate [employer] Advanced Cardiac Life support Algorithm per patient code status, Ordered Reason VTE Prophylaxis Not Received, 02/04/2022 12:07:00 EDT, Patient is ambulatory, Ordered Communication CONSTANT Order, 02/04/2022 11:58:00 EDT, Constant Order, Patients recovering in Critical Care, record vital signs Q10 min or more frequently for patient's condition or as per physician order. Patients do not require a PAR score (post anesthesia recovery)., Ordered Oxygen Therapy, 02/04/2022 11:58:00 EDT, Simple Mask, 100%, Constant Order, in PACU, wean Oxygen to room air to baseline SpO2, Ordered Oxygen Therapy, 02/04/2022 11:58:00 EDT, Nasal Cannula, 3L, Constant Order, overnight if SpO2 less than 95%, Ordered Isolation Precaution Order Detail EV : NONE IV Order Detail - EV : No Oxygen Order Detail EV : No Order Detail EV : No Pacemaker Order Detail : 0 Briefcase Sewer Details Review Status : Reviewed, no changes Nurse Collects Blood Specimens : No Naheed Laurent RN - 02/07/2022 0:01 EDT Normal [facility] Comment on above: Order Comment: Order entered secondary to admission Pharmacy Clinical Interventi ons-Texton 02-07-2022 Pharmacy Clinical Interventions-Text Pharmacy Clinical Interventions Entered On: 02/07/2022 9:30 EDT Performed On: 02/07/2022 9:26 EDT by Parvin Pacheco RPh Interventions Intervention Type Pharmacy : Discharge Med Rec Review Pharmacy Order Initiated By : Pharmacist Clinical Importance Pharmacy : Potentially severe Prescriber Response Pharmacy : Accepted Patient Clinical Outcome Pharmacy : Avoided potential risk Pharmacist Intervention Time : 15 Pharmacy Additional Information : reviewed medication history prior to pt discharge. pt presenting d/t post-op pain. new medications include percocet- sent to preferred pharmacy. biotin, glucosamine, and fish oil stopped on discharge Parvin Pacheco RPh - 02/07/2022 9:26 EDT [facility] APAP 325MG/OXYCODONE 5MG TAB on 02-06-2022 APAP 325MG/OXYCODONE 5MG TAB PRN Response Entered On: 02/06/2022 15:28 EDT Performed On: 02/06/2022 15:59 EDT by Earnestine Campbell RN Intervention Information: acetaminophen-oxycodone Performed by Earnestine Campbell RN on 02/06/2022 14:59:00 EDT acetaminophen-oxycodone (acetaminophen-oxycodon e 325 mg-5 mg oral tablet = Percocet),2tabs ORAL,Severe Pain PRN Medication Response PRN Medication used for : Pain PRN Medication Effectiveness : Yes PRN Response Pain Scales : Numeric (8yrs & older) Numeric Pain Scale Age : Numeric (8yrs & older) Actual time of reassessment : No (not needed time is correct) Earnestine Campbell RN - 02/06/2022 15:28 EDT Numeric Pain Scale Numeric Pain Scale : 8 = Severe Pain Numeric Pain Score : 8 Earnestine Campbell RN - 02/06/2022 15:28 EDT [facility] Comment on above: Order Comment: Check for other orders containing acetaminophen before administering. Max total daily amount is 4000 mg. APAP 325MG/OXYCODONE 5MG TAB PRN Response Entered On: 02/06/2022 15:28 EDT Performed On: 02/06/2022 11:39 EDT by Earnestine Campbell RN Intervention Information: acetaminophen-oxycodone Performed by Earnestine Campbell RN on 02/06/2022 10:39:00 EDT acetaminophen-oxycodone (acetaminophen-oxycodon e 325 mg-5 mg oral tablet = Percocet),2tabs ORAL,Severe Pain PRN Medication Response PRN Medication used for : Pain PRN Medication Effectiveness : Yes PRN Response Pain Scales : Numeric (8yrs & older) Numeric Pain Scale Age : Numeric (8yrs & older) Actual time of reassessment : No (not needed time is correct) Earnestine Campbell RN - 02/06/2022 15:28 EDT Numeric Pain Scale Numeric Pain Scale : 7 = Severe Pain Numeric Pain Score : 7 Earnestine Campbell RN - 02/06/2022 15:28 EDT [facility] Comment on above: Order Comment: Check for other orders containing acetaminophen before administering. Max total daily amount is 4000 mg. APAP 325MG/OXYCODONE 5MG TAB PRN Response Entered On: 02/06/2022 15:28 EDT Performed On: 02/06/2022 7:15 EDT by Earnestine Campbell RN Intervention Information: acetaminophen-oxycodone Performed by Colby Bourgeois RN on 02/06/2022 06:15:00 EDT acetaminophen-oxycodone (acetaminophen-oxycodon e 325 mg-5 mg oral tablet = Percocet),2tabs ORAL,Severe Pain PRN Medication Response PRN Medication used for : Pain PRN Medication Effectiveness : Yes PRN Response Pain Scales : Numeric (8yrs & older) Numeric Pain Scale Age : Numeric (8yrs & older) Actual time of reassessment : No (not needed time is correct) Earnestine Campbell RN - 02/06/2022 15:28 EDT Numeric Pain Scale Numeric Pain Scale : 7 = Severe Pain Numeric Pain Score : 7 Earnestine Campbell RN - 02/06/2022 15:28 EDT [facility] Comment on above: Order Comment: Check for other orders containing acetaminophen before administering. Max total daily amount is 4000 mg. APAP 325MG/OXYCODONE 5MG TAB PRN Response Entered On: 02/06/2022 2:51 EDT Performed On: 02/06/2022 2:50 EDT by Colby Bourgeois RN Intervention Information: acetaminophen-oxycodone Performed by Colby Bourgeois RN on 02/06/2022 01:50:00 EDT acetaminophen-oxycodone (acetaminophen-oxycodon e 325 mg-5 mg oral tablet = Percocet),2tabs ORAL,Severe Pain PRN Medication Response PRN Medication used for : Pain PRN Medication Effectiveness : Yes PRN Response Pain Scales : FLACC (all ages) FLACC Pain Scale Age : FLACC (all ages) Actual time of reassessment : No (not needed time is correct) Colby Bourgeois RN - 02/06/2022 2:51 EDT FLACC Face : No particular expression or smile Legs : Normal position or relaxed Activity : Lying quietly, normal position, moves easily Cry : No cry, awake or asleep Consolability : Content, relaxed Score : 0 Colby Bourgeois RN - 02/06/2022 2:51 EDT Normal [facility] Comment on above: Order Comment: Check for other orders containing acetaminophen before administering. Max total daily amount is 4000 mg. APAP 325MG/OXYCODONE 5MG TAB PRN Response Entered On: 02/06/2022 2:51 EDT Performed On: 02/05/2022 22:28 EDT by Colby Bourgeois RN Intervention Information: acetaminophen-oxycodone Performed by Colby Bourgeois RN on 02/05/2022 21:28:00 EDT acetaminophen-oxycodone (acetaminophen-oxycodon e 325 mg-5 mg oral tablet = Percocet),2tabs ORAL,Severe Pain PRN Medication Response PRN Medication used for : Pain PRN Medication Effectiveness : Yes PRN Response Pain Scales : FLACC (all ages) FLACC Pain Scale Age : FLACC (all ages) Actual time of reassessment : No (not needed time is correct) Colby Bourgeois RN - 02/06/2022 2:50 EDT FLACC Face : No particular expression or smile Legs : Normal position or relaxed Activity : Lying quietly, normal position, moves easily Cry : No cry, awake or asleep Consolability : Content, relaxed Score : 0 Colby Bourgeois RN - 02/06/2022 2:50 EDT Normal [facility] Comment on above: Order Comment: Check for other orders containing acetaminophen before administering. Max total daily amount is 4000 mg. Intake and Output-Texton Intake and Output-Text Intake and Output Entered On: 02/06/2022 12:22 EDT Performed On: 02/06/2022 12:22 EDT by Christina Bartlett I&O Oral : 240 mL Christina Bartlett - 02/06/2022 12:22 EDT Normal [facility] Intake and Output-Text Intake and Output Entered On: 02/06/2022 9:41 EDT Performed On: 02/06/2022 9:41 EDT by Christina Bartlett I&O Oral : 120 mL Christina Bartlett - 02/06/2022 9:41 EDT Normal [facility] Intake and Output-Text Intake and Output Entered On: 02/06/2022 9:34 EDT Performed On: 02/06/2022 9:34 EDT by Christina Bartlett I&O Oral : 120 mL Urine Voided : 400 mL Christina Bartlett - 02/06/2022 9:34 EDT Normal [facility] Nursing Clinical Noteon - Nursing Clinical Note Assumed care of this pt at 1600. No change in earlier assessment. call light in reach. Normal [facility] Briefcase Sewer Detailson 2021 Briefcase Sewer Details Briefcase Sewer Details Entered On: 02/06/2022 2:50 EDT Performed On: 02/06/2022 2:50 EDT by Colby Bourgeois RN Briefcase Sewer Details Transport Mode Order Detail EV : Wheelchair Isolation Precautions RTF : Level of Care Order, 02/05/2022 16:08:00 EDT, SAME BED LOCATION Admit as Inpatient, CAM KHAN DPM, Ordered Post Procedure Location of Care, 02/04/2022 12:35:00 EDT, Surgical Unit (5E), Ordered Oxygen Therapy, 02/04/2022 12:24:00 EDT, Nasal Cannula, 3L, Constant Order, overnight if SpO2 less than 95%, Ordered Communication CONSTANT Order, 02/04/2022 12:07:00 EDT, Constant Order, STAT EKG for Chest Pain, STAT ABGs for Acute Respiratory Distress, STAT Potassium/Magnesium for any significant change in condition/rhythm, Ordered Communication CONSTANT Order, 02/04/2022 12:07:00 EDT, Constant Order, Current ACLS Provider may, Initiate [employer] Advanced Cardiac Life support Algorithm per patient code status, Ordered Reason VTE Prophylaxis Not Received, 02/04/2022 12:07:00 EDT, Patient is ambulatory, Ordered Communication CONSTANT Order, 02/04/2022 11:58:00 EDT, Constant Order, Patients recovering in Critical Care, record vital signs Q10 min or more frequently for patient's condition or as per physician order. Patients do not require a PAR score (post anesthesia recovery)., Ordered Oxygen Therapy, 02/04/2022 11:58:00 EDT, Simple Mask, 100%, Constant Order, in PACU, wean Oxygen to room air to baseline SpO2, Ordered Oxygen Therapy, 02/04/2022 11:58:00 EDT, Nasal Cannula, 3L, Constant Order, overnight if SpO2 less than 95%, Ordered Isolation Precaution Order Detail EV : NONE IV Order Detail - EV : No Oxygen Order Detail EV : No Order Detail EV : No Pacemaker Order Detail : 0 Briefcase Sewer Details Review Status : Reviewed, changes made Nurse Collects Blood Specimens : No Colby Bourgeois RN - 02/06/2022 2:50 EDT Normal [facility] Comment on above: Order Comment: Order entered secondary to admission Utilization Review Noteon Utilization Review Note EXT REC DAY 0. SCHEDULED SURGERY COMPLETED WITHOUT COMPLICATIONS EXT REC DAY 1. MEDICARE FFS WITH LOC. CHANGED TO INPT. Patient has crossed 1MN and continues to receive hospital level of care. 02/04 Ext Rec 02/05 Inpatient Inpatient LOC order is valid. Normal [facility] APAP 325MG/OXYCODONE 5MG TAB on 02-05-2022 APAP 325MG/OXYCODONE 5MG TAB PRN Response Entered On: 02/05/2022 15:32 EDT Performed On: 02/05/2022 13:58 EDT by Emma Benedict RN Intervention Information: acetaminophen-oxycodone Performed by Emma Benedict RN on 02/05/2022 12:58:00 EDT acetaminophen-oxycodone (acetaminophen-oxycodon e 325 mg-5 mg oral tablet = Percocet),2tabs ORAL,Severe Pain PRN Medication Response PRN Medication used for : Pain PRN Medication Effectiveness : Yes PRN Response Pain Scales : Numeric (8yrs & older) Numeric Pain Scale Age : Numeric (8yrs & older) Actual time of reassessment : No (not needed time is correct) Emma Benedict RN - 02/05/2022 15:32 EDT Numeric Pain Scale Numeric Pain Scale : 6 = Moderate Pain Numeric Pain Score : 6 Emma Benedict RN - 02/05/2022 15:32 EDT Normal [facility] Comment on above: Order Comment: Check for other orders containing acetaminophen before administering. Max total daily amount is 4000 mg. APAP 325MG/OXYCODONE 5MG TAB PRN Response Entered On: 02/05/2022 12:59 EDT Performed On: 02/05/2022 7:57 EDT by Emma Benedict RN Intervention Information: acetaminophen-oxycodone Performed by Colby Bourgeois RN on 02/05/2022 06:57:00 EDT acetaminophen-oxycodone (acetaminophen-oxycodon e 325 mg-5 mg oral tablet = Percocet),2tabs ORAL,Severe Pain PRN Medication Response PRN Medication used for : Pain PRN Medication Effectiveness : Yes PRN Response Pain Scales : Numeric (8yrs & older) Numeric Pain Scale Age : Numeric (8yrs & older) Actual time of reassessment : No (not needed time is correct) Emma Benedict RN - 02/05/2022 12:59 EDT Numeric Pain Scale Numeric Pain Scale : 6 = Moderate Pain Numeric Pain Score : 6 Emma Benedict RN - 02/05/2022 12:59 EDT Normal [facility] Comment on above: Order Comment: Check for other orders containing acetaminophen before administering. Max total daily amount is 4000 mg. APAP 325MG/OXYCODONE 5MG TAB PRN Response Entered On: 02/05/2022 4:50 EDT Performed On: 02/05/2022 3:48 EDT by Colby Bourgeois RN Intervention Information: acetaminophen-oxycodone Performed by Colby Bourgeois RN on 02/05/2022 02:48:00 EDT acetaminophen-oxycodone (acetaminophen-oxycodon e 325 mg-5 mg oral tablet = Percocet),2tabs ORAL,Severe Pain PRN Medication Response PRN Medication used for : Pain PRN Medication Effectiveness : Yes PRN Response Pain Scales : FLACC (all ages) FLACC Pain Scale Age : FLACC (all ages) Actual time of reassessment : No (not needed time is correct) Colby Bourgeois RN - 02/05/2022 4:49 EDT FLACC Face : No particular expression or smile Legs : Normal position or relaxed Activity : Lying quietly, normal position, moves easily Cry : No cry, awake or asleep Consolability : Content, relaxed Score : 0 Colby Bourgeois RN - 02/05/2022 4:49 EDT [facility] Comment on above: Order Comment: Check for other orders containing acetaminophen before administering. Max total daily amount is 4000 mg. APAP 325MG/OXYCODONE 5MG TAB PRN Response Entered On: 02/05/2022 3:14 EDT Performed On: 02/04/2022 23:37 EDT by Colby Bourgeois RN Intervention Information: acetaminophen-oxycodone Performed by Colby Bourgeois RN on 02/04/2022 22:37:00 EDT acetaminophen-oxycodone (acetaminophen-oxycodon e 325 mg-5 mg oral tablet = Percocet),2tabs ORAL,Severe Pain PRN Medication Response PRN Medication used for : Pain PRN Medication Effectiveness : Yes PRN Response Pain Scales : FLACC (all ages) FLACC Pain Scale Age : FLACC (all ages) Actual time of reassessment : No (not needed time is correct) Colby Bourgeois RN - 02/05/2022 3:14 EDT FLACC Face : No particular expression or smile Legs : Normal position or relaxed Activity : Lying quietly, normal position, moves easily Cry : No cry, awake or asleep Consolability : Content, relaxed Score : 0 Colby Bourgeois RN - 02/05/2022 3:14 EDT [facility] Comment on above: Order Comment: Check for other orders containing acetaminophen before administering. Max total daily amount is 4000 mg. APAP 325MG/OXYCODONE 5MG TAB PRN Response Entered On: 02/05/2022 3:13 EDT Performed On: 02/04/2022 19:37 EDT by Colby Bourgeois RN Intervention Information: acetaminophen-oxycodone Performed by Tracey Jackson RN on 02/04/2022 18:37:00 EDT acetaminophen-oxycodone (acetaminophen-oxycodon e 325 mg-5 mg oral tablet = Percocet),1tabs ORAL,Moderate Pain PRN Medication Response PRN Medication used for : Pain PRN Medication Effectiveness : Yes PRN Response Pain Scales : FLACC (all ages) FLACC Pain Scale Age : FLACC (all ages) Actual time of reassessment : No (not needed time is correct) Colby Bourgeois RN - 02/05/2022 3:13 EDT FLACC Face : No particular expression or smile Legs : Normal position or relaxed Activity : Lying quietly, normal position, moves easily Cry : No cry, awake or asleep Consolability : Content, relaxed Score : 0 Colby Bourgeois RN - 02/05/2022 3:13 EDT [facility] Comment on above: Order Comment: Check for other orders containing acetaminophen before administering. Max total daily amount is 4000 mg. Admission History Adulton Admission History Adult Patient History Model Entered On: 02/05/2022 16:55 EDT Performed On: 02/05/2022 16:54 EDT by Emma Benedict RN General Info Contact Information : Tray tyler [phone] Emma Benedict RN - 02/05/2022 17:09 EDT Preferred Verbal : Sammarinese Preferred Written : Sammarinese Is patient a dialysis patient? : No Marichuy GARIRDO [facility] - 02/05/2022 16:54 EDT Problem List Problem List obtained from : Judith Benedict HEMA, [facility] - 02/05/2022 16:54 EDT (As Of: 02/05/2022 16:55:34 EDT) Problems(Active) At risk for falls (SNOMED CT :268544430 ) Name of Problem: At risk for falls ; Recorder: SYSTEM; Confirmation: Confirmed ; Classification: Nursing ; Code: [id number] ; Last Updated: 02/04/2022 14:54 EDT ; Life Cycle Date: 02/04/2022 ; Life Cycle Status: Active ; Vocabulary: SNOMED CT ; Comments: 02/04/2022 14:54 - SYSTEM Problem added automatically by system based on documentation of a admission to the hospital. Difficulty walking (SNOMED CT :6121591423 ) Name of Problem: Difficulty walking ; Recorder: CAM KHAN DPM; Confirmation: Confirmed ; Classification: Medical ; Code: [id number] ; Contributor System: [employer] ; Last Updated: 12/15/2021 09:09 EDT ; Life Cycle Date: 12/15/2021 ; Life Cycle Status: Active ; Responsible Provider: CAM KHAN DPM; Vocabulary: SNJANINE CT Local edema (SNOMED CT :693106166 ) Name of Problem: Local edema ; Recorder: CAM KHAN DPM; Confirmation: Confirmed ; Classification: Medical ; Code: [id number] ; Contributor System: [employer] ; Last Updated: 12/15/2021 09:08 EDT ; Life Cycle Date: 12/15/2021 ; Life Cycle Status: Active ; Responsible Provider: CAM KHAN DPM; Vocabulary: SNJANINE CT Lumbar stenosis (SNOMED CT :02724166 ) Name of Problem: Lumbar stenosis ; Recorder: CARLTON GERMAN CNP; Confirmation: Confirmed ; Classification: Medical ; Code: [id number] ; Contributor System: [employer] ; Last Updated: 04/28/2017 12:08 EST ; Life Cycle Date: 04/28/2017 ; Life Cycle Status: Active ; Responsible Provider: CARLTON GERMAN CNP; Vocabulary: SNOMED CT Pain in right ankle and joints of right foot (SNOMED CT :2475739845 ) Name of Problem: Pain in right ankle and joints of right foot ; Recorder: CAM KHAN DPM; Confirmation: Confirmed ; Classification: Medical ; Code: [id number] ; Contributor System: [employer] ; Last Updated: 12/15/2021 09:08 EDT ; Life Cycle Date: 12/15/2021 ; Life Cycle Status: Active ; Responsible Provider: CAM KHAN DPM; Vocabulary: SNOMED CT Primary osteoarthritis of right ankle (SNOMED CT :2422419666 ) Name of Problem: Primary osteoarthritis of right ankle ; Recorder: ALEXANDRE PUTNAM DPM; Confirmation: Confirmed ; Classification: Medical ; Code: [id number] ; Contributor System: Sgnam[employer] ; Last Updated: 11/18/2021 17:51 EDT ; Life Cycle Date: 11/18/2021 ; Life Cycle Status: Active ; Responsible Provider: ALEXANDRE PUTNAM DPM; Vocabulary: SNOMED CT Spondylolisthesis (SNOMED CT :995092134 ) Name of Problem: Spondylolisthesis ; Recorder: CARLTON GERMAN CNP; Confirmation: Confirmed ; Classification: Medical ; Code: [id number] ; Contributor System: [employer] ; Last Updated: 04/28/2017 12:08 EST ; Life Cycle Date: 04/28/2017 ; Life Cycle Status: Active ; Responsible Provider: CARLTON GERMAN CNP; Vocabulary: SNOMED CT Procedure History Accept Blood Products if Necessary : Yes Kall Philomena GARRIDOorah - 02/05/2022 16:54 EDT - Procedure History (As Of: 02/05/2022 16:55:34 EDT) Anesthesia Minutes: 0 ; Procedure Name: right total knee ; Procedure Minutes: 0 ; Last Reviewed Dt/Tm: 02/05/2022 16:54:45 EDT Anesthesia Minutes: 0 ; Procedure Name: 2 BACK SURGERY WITH HARDWARE INSERTION 2006 ; Procedure Minutes: 0 ; Last Reviewed Dt/Tm: 02/05/2022 16:54:45 EDT Anesthesia Minutes: 0 ; Procedure Name: GALLBLADDER 2007 ; Procedure Minutes: 0 ; Last Reviewed Dt/Tm: 02/05/2022 16:54:45 EDT Anesthesia Minutes: 0 ; Procedure Name: LEFT TOTAL HIP REPLACEMENT 2006 ; Procedure Minutes: 0 ; Last Reviewed Dt/Tm: 02/05/2022 16:54:45 EDT Anesthesia Minutes: 0 ; Procedure Name: left hip revision ; Procedure Minutes: 0 ; Last Reviewed Dt/Tm: 02/05/2022 16:54:45 EDT Anesthesia Minutes: 0 ; Procedure Name: Left acetabular revision ; Procedure Minutes: 0 ; Last Reviewed Dt/Tm: 02/05/2022 16:54:45 EDT Procedure Dt/Tm: 05/09/2017 ; Provider: VIPIN STRINGER MD; Anesthesia Minutes: 0 ; Procedure Name: Lumbar Laminectomy Posterior with Fusion. ; Procedure Minutes: 0 ; Comments: 05/09/2017 14:01 EST - Isabel RN, Kisha L3-4, REMOVAL INSTRUMENTATION L4-S1 ; Last Reviewed Dt/Tm: 02/05/2022 16:54:45 EDT Procedure Dt/Tm: 04/05/2019 ; Provider: BINA MOREIRA MD; Anesthesia Minutes: 0 ; Procedure Name: RIGHT TOTAL HIP REPLACEMENT ; Procedure Minutes: 0 ; Last Reviewed Dt/Tm: 02/05/2022 16:54:45 EDT Procedure Dt/Tm: 02/04/2022 ; Provider: CAM KHAN DPM; Anesthesia Minutes: 0 ; Procedure Name: RIGHT ANKLE ARTHRODESIS,,RIGHT SUBTALAR JOINT ARTHRODESIS ; Procedure (more content not included)... Normal [facility] Comment on above: Order Comment: Order entered secondary to admission BASICMETAon 02-05-2022 Calcium [Mass/Vol] 9.3 mg/dL Normal 8.7-10.4 [facility] Comment on above: Performed By: #### 1 90824, [id number] ####[facility] [address] [place] [id number] Medical Director: Bib Ferraro MD Chloride [Moles/Vol] 106 mmol/L Normal 98-107 [facility] Comment on above: Performed By: #### 1 81981, 940974 ####[facility] [address] [place] [address] Medical Director: Bib Ferraro MD CO2 [Moles/Vol] 30.0 mmol/L Normal 20.0-31.0 [facility] Comment on above: Performed By: #### 1 92633, 049602 ####[facility] [address] [place], [place] [id number]) [phone] Director: Bib Ferraro MD Creatinine [Mass/Vol] 0.8 mg/dL Normal 0.5-0.8 [facility] Comment on above: Performed By: #### 1 37738, 004190 ####[facility] [address] [place], [place] [id number]) [phone] Director: Bib Ferraro MD GFR AA >60 Normal [facility] Comment on above: Result Comment: Afri can Algerian GFR Calc Medical judgement is necessary to interpret GFR. The calculated GFR may not accurately reflect renal status in patients >70 years, women, acutely ill hospitalized patients and patients with acute renal failure or known renal disease. The MDRD GFR formula is valid only for adults greater than 18 years of age. Note: Creatinine clearance (not GFR) should be used for drug dosing. Performed By: #### 1 76001, 558869 ####[facility] [address] [place], [place] [address]) [phone] Director: Bib Ferraro MD Glomerular Filtration Rate >60 Normal [facility] Comment on above: Result Comment: Non- GFR Calc Medical judgement is necessary to interpret GFR. The calculated GFR may not accurately reflect renal status in patients >70 years, women, acutely ill hospitalized patients and patients with acute renal failure or known renal disease. The MDRD GFR formula is valid only for adults greater than 18 years of age. Note: Creatinine clearance (not GFR) should be used for drug dosing. Performed By: #### 1 51383, 132331 ####[facility] [address] [place] [address] Medical Director: Bib Ferraro MD Glucose [Mass/Vol] 136 mg/dL High 74-106 [facility] Comment on above: Performed By: #### 1 45567, 249500 ####[facility] [address] [place], [place] [address]) [phone] Director: Bib Ferraro MD Osmolality [Osmolality] 282 mosm/kg Normal 275-295 [facility] Comment on above: Performed By: #### 1 60384, 373470 ####[facility] [address] [place] [address] Medical Director: Bib Ferraro MD Potassium [Moles/Vol] 4.3 mmol/L Normal 3.5-5.1 [facility] Comment on above: Performed By: #### 1 33488, 347336 ####[facility] [address] [place] [address] Medical Director: Bib Ferraro MD Sodium [Moles/Vol] 140 mmol/L Normal 135-145 [facility] Comment on above: Performed By: #### 1 20307, 558396 ####[facility] [address]sc[address] [place] [address] Medical Director: Bib Ferraro MD Urea nitrogen [Mass/Vol] 14 mg/dL Normal 9-23 [facility] Comment on above: Result Comment: - Ve nipuncture should occur prior to N-Acetyl Cysteine (NAC) or Metamizole (Sulpyrine) administration due to the potential for falsely depressed results. - Blood samples from some patients with monoclonal gammopathies may produce falsely elevated results Performed By: #### 1 96918, 187554 ####[facility] [address] [place] [address] Medical Director: Bib Ferraro MD Urea nitrogen/Creatinine [Mass ratio] 17.3 mg/mg Normal [facility] Comment on above: Performed By: #### 1 88268, 578387 ####[facility] [address] [place] [address] Medical Director: Bib Ferraro MD CBCNDon 02-05-2022 Erythrocyte distribution width (RBC) [Ratio] 14.3 % Normal 11.5-14.5 [facility] Comment on above: Performed By: #### 1 53243, 803006 ####[facility] [address] [place] [id number]) [phone] Director: Bib Ferraro MD Hematocrit (Bld) [Volume fraction] 38.1 % Normal 36.0-46.0 [facility] Comment on above: Performed By: #### 1 12881, 721871 ####[facility] [address] [place], [place] [address]) [phone] Director: Bib Ferraor MD Hemoglobin (Bld) [Mass/Vol] 12.7 g/dL Normal 12.0-16.0 [facility] Comment on above: Performed By: #### 1 63508, 580487 ####[facility] [address] [place], [place] [address]) [phone] Director: Bib Ferraro MD Instr WBC ND 15.3 Normal [facility] Comment on above: Performed By: #### 1 04169, 984622 ####[facility] [address] [place], [place] [address]) [phone] Director: Bib Ferraro MD MCH (RBC) [Entitic mass] 30.3 pg Normal 27.0-34.0 [facility] Comment on above: Performed By: #### 1 62039, 598235 ####[facility] [address] [place], [place] [address]) [phone] Director: Bib Ferraro MD MCHC (RBC) [Mass/Vol] 33.4 g/dL Normal 32.0-37.0 [facility] Comment on above: Performed By: #### 1 97955, 808402 ####[facility] [address] [place], [place] [id number]) [phone] Director: Bib Ferarro MD MCV (RBC) [Entitic vol] 90.6 fL Normal 80.0-100.0 [facility] Comment on above: Performed By: #### 1 43322, 825268 ####[facility] [address] [place], [place] [address]) [phone] Bib Ferraro MD Platelet 218 x10 Normal 150-450 [facility] Comment on above: Performed By: #### 1 37382, 139341 ####[facility] [address] [place], [place] [address]) [phone] Director: Bib Ferraro MD Platelet mean volume (Bld) [Entitic vol] 8.7 fL Normal 7.4-10.4 [facility] Comment on above: Performed By: #### 1 52124, 334321 ####[facility] [address] [place], [place] [address]) [phone] Director: Bib Ferraro MD RBC 4.21 x10 Normal 4.20-5.40 [facility] Comment on above: Result Comment: Note : RBC morphology is normal unless otherwise stated. Evaluation performed only if differential is requested. Performed By: #### 1 65683, 112051 ####[facility] [address] [place], [place] [address]) [phone] Director: Bib Ferraro MD WBC 15.3 x10 High 4.5-11.0 [facility] Comment on above: Performed By: #### 1 87260, 599084 ####[facility] [address] [place] [id number]) [phone] Director: Bib Ferraro MD Briefcase Sewer Detailson 2021 Briefcase Sewer Details Briefcase Sewer Details Entered On: 02/05/2022 3:15 EDT Performed On: 02/05/2022 3:14 EDT by Colby Bourgeois RN Briefcase Sewer Details Transport Mode Order Detail EV : Bed Isolation Precautions RTF : Post Procedure Location of Care, 02/04/2022 12:35:00 EDT, Surgical Unit (5E), Ordered Communication CONSTANT Order, 02/04/2022 12:24:00 EDT, Constant Order, Patients recovering in Critical Care, record vital signs Q10 min or more frequently for patient's condition or as per physician order. Patients do not require a PAR score (post anesthesia recovery)., Discontinued Oxygen Therapy, 02/04/2022 12:24:00 EDT, Nasal Cannula, 3L, Constant Order, overnight if SpO2 less than 95%, Ordered Oxygen Therapy, 02/04/2022 12:24:00 EDT, Simple Mask, 100%, Constant Order, in PACU, wean Oxygen to room air to baseline SpO2, Discontinued Communication CONSTANT Order, 02/04/2022 12:07:00 EDT, Constant Order, Current ACLS Provider may, Initiate [place] [employer] Advanced Cardiac Life support Algorithm per patient code status, Ordered Communication CONSTANT Order, 02/04/2022 12:07:00 EDT, Constant Order, STAT EKG for Chest Pain, STAT ABGs for Acute Respiratory Distress, STAT Potassium/Magnesium for any significant change in condition/rhythm, Ordered Reason VTE Prophylaxis Not Received, 02/04/2022 12:07:00 EDT, Patient is ambulatory, Ordered Communication CONSTANT Order, 02/04/2022 11:58:00 EDT, Constant Order, Patients recovering in Critical Care, record vital signs Q10 min or more frequently for patient's condition or as per physician order. Patients do not require a PAR score (post anesthesia recovery)., Ordered Oxygen Therapy, 02/04/2022 11:58:00 EDT, Nasal Cannula, 3L, Constant Order, overnight if SpO2 less than 95%, Ordered Oxygen Therapy, 02/04/2022 11:58:00 EDT, Simple Mask, 100%, Constant Order, in PACU, wean Oxygen to room air to baseline SpO2, Ordered History and Physical by House Physician, 02/04/2022 07:10:00 EDT, by House Physician on admit, 02/04/2022 07:10:00 EDT, Completed Obtain Consent, 02/04/2022 07:10:00 EDT, Completed Isolation Precaution Order Detail EV : NONE IV Order Detail - EV : No Oxygen Order Detail EV : No Order Detail EV : No Pacemaker Order Detail : 0 Briefcase Sewer Details Review Status : Reviewed, changes made Nurse Collects Blood Specimens : No Colby Bourgeois RN - 02/05/2022 3:14 EDT Normal [facility] Comment on above: Order Comment: Order entered secondary to admission SURGICAL PATH REPORTon 02-05 SURGICAL PATH REPORT [facility] Department of Pathology [address] [place] [id number] [phone] Name: SADIE FERNANDEZ : 1950 [employer] [id number] Number: Gender Female Locatio 5E; E509; 01 : n: Admit 71 years Attending CAM KHAN DPM Age: Provider: Ordering CAM KHAN DPM Provider: Danita Surgical Pathology Report ng: ACCESSION: COLLECTED DATE/TIME: RECEIVED DATE/TIME: PATHOLOGIST: [id number] 02/04/2022 09:28 EDT 02/04/2022 11:38 EDT NICOLETTE SIGALA, DI Final Diagnosis TOPHI FOR GOUT: - SYNOVIUM WITH CALCIFICATION AND REACTIVE CHANGES. COMMENT: Gout tophi is not identified in this specimen. DI WILL PATHOLOGIST (Electronic Signature) Date Verified 02/05/2022 AD Clinical Data PREOP DIAGNOSIS: PRIMARY OSTEOARTHRITIS RIGHT ANKLE POSTOP DIAGNOSIS: PRIMARY OSTEOARTHRITIS RIGHT ANKLE PROCEDURE: RIGHT ANKLE ARTHRODESIS , RIGHT SUBTALAR JOINT ARTHRODESIS SPECIMEN: TOPHI FOR GOUT Gross Description Labeled right foot tophi for gout. Received fresh is a single ovoid segment of pink-white chalky soft tissue measuring 1.6 x 0.6 x 0.5 cm. The specimen is entirely submitted in one cassette for a gout workup. MP/tara 02/04/2022 Codes CPT CODE: [id number] ____ Print 02/28/2022 14:46 EST Number: Date/Time: Normal [facility] Comment on above: Performed By: #### 9 [id number] ####[facility] [address] [place] [address] Medical Director: Bib Ferraro MD Social Work/Care Mgmt Assess ment-Texton 02-05-2022 Social Work/Care Mgmt Assessment-Text Social Work/Case Management Assessment Entered On: 02/05/2022 14:18 EDT Performed On: 02/05/2022 14:18 EDT by Colleen Whiting RN, CM/SW Assessment Reason for Referral : Discharge Planning Primary Care Physician : TRACE DOZIER Working Diagnosis from Physician Note : Patient is s/p tibiotalocalcaneal arthrodesis, right foot Advanced Directive : Pt has Advance Directive and has been asked to provide a copy Social Determinants of Health : None Identified Patient Goal(s) at Discharge : return home Anticipated Discharge Date : 02/07/2022 EDT Colleen Whiting RN - 02/05/2022 14:18 EDT Progress Note Progress Note/Comment : CM met with patient at bedside. She confirmed her PCP and states her sister/Anusha is her MPOA/EMC. Patient lives alone in a single level condo with her sister living next door with her cats. Patient has a small entry step from garage into house. She states independent with ADLs. Has a cane and walker at home from previous surgeries (3 hips, knee). State she now has a lift chair and elevated toilet seats also. Her sister will transport her home. Patient declines SNF recommendation by therapy and declined C also. CM to f/u if d/c needs arise. A. Discharge Plan: return home B. DME required at discharge: no C. Who the discharge plan has been discussed with: patient, therapy, bedside nurse/Philomena Sosa Transportation needed at discharge: no her sister will transport E. Barriers to discharge: medical clearance F. Handoff to whom: n/a Discharged to : Home Impressions Needs Indentified Initial : Social Work/Care Management Assessment Completed Colleen Whiting RN - 02/05/2022 14:18 EDT Normal [facility] XR ANKLE RIGHT COMPARISON 2 VIEWSon 02-05-2022 XR ANKLE RIGHT COMPARISON 2 VIEWS Fluoroscopic guidance and intraoperative right ankle 02/04/2022 6:36 AM CDT History: C-ARM GUIDANCE IN radiator tester notes: WHAT SYMPTOMS ARE YOU EXPERIENCING? - PRIMARY OSTEOARTHRITIS RIGHT ANKLE,FLUOROSCOPY TIME (MINUTES) - 3.28 minutes,NUMBER OF FLUORO SPOT IMAGES - 8.00,mGy - 8.03 Findings: Fluoroscopic guidance was provided in the operating room for right ankle/foot surgery.. 3.28 minutes of fluoroscopy time was provided. Eight images are submitted. There is a metallic fixation device through the right tibia and calcaneus. There are also metallic screws through the calcaneus. There appears to be resection of the distal right fibula. Please see the operative report for additional information. Impression: Fluoroscopic guidance was provided for right foot/ankle surgery as discussed above [] Electronically signed by: Horace Atkinson MD 02/05/2022 1:33 PM CDT Technologist: SEAMUS Dictated By: HORACE ATKINSON MD Signed By: HORACE ATKINSON MD Signed Out: 02/05/22 14:33:40 Normal [facility] XR FLUORO ORon 02-05-2022 XR FLUORO OR Fluoroscopic guidanc e and intraoperative right ankle 02/04/2022 6:36 AM CDT History: C-ARM GUIDANCE IN radiator tester notes: WHAT SYMPTOMS ARE YOU EXPERIENCING? - PRIMARY OSTEOARTHRITIS RIGHT ANKLE,FLUOROSCOPY TIME (MINUTES) - 3.28 minutes,NUMBER OF FLUORO SPOT IMAGES - 8.00,mGy - 8.03 Findings: Fluoroscopic guidance was provided in the operating room for right ankle/foot surgery.. 3.28 minutes of fluoroscopy time was provided. Eight images are submitted. There is a metallic fixation device through the right tibia and calcaneus. There are also metallic screws through the calcaneus. There appears to be resection of the distal right fibula. Please see the operative report for additional information. Impression: Fluoroscopic guidance was provided for right foot/ankle surgery as discussed above [] Electronically signed by: Horace Atkinson MD 02/05/2022 1:33 PM CDT Technologist: SEAMUS Dictated By: HORACE ATKINSON MD Signed By: HORACE ATKINSON MD Signed Out: 02/05/22 14:33:40 Normal [facility] ACETAMINOPHEN 500 MG TABon 1 ACETAMINOPHEN 500 MG TAB PRN Response Entered On: 02/04/2022 8:04 EDT Performed On: 02/04/2022 8:04 EDT by Saloni Cordero RN Intervention Information: acetaminophen Performed by Saloni Cordero RN on 02/04/2022 07:50:00 EDT acetaminophen,1000mg ORAL PRN Medication Response PRN Medication used for : Other: protocol Actual time of reassessment : Yes Gil GARRIDO Saloni - 02/04/2022 8:04 EDT [facility] Comment on above: Order Comment: Check for other orders containing acetaminophen before administering. Max total daily amount is 4000 mg. APAP 325MG/OXYCODONE 5MG TAB on 02-04-2022 APAP 325MG/OXYCODONE 5MG TAB PRN Response Entered On: 02/04/2022 16:53 EDT Performed On: 02/04/2022 16:44 EDT by Tracey Jackson RN Intervention Information: acetaminophen-oxycodone Performed by Tracey Jackson RN on 02/04/2022 15:44:00 EDT acetaminophen-oxycodone (acetaminophen-oxycodon e 325 mg-5 mg oral tablet = Percocet),1tabs ORAL,Moderate Pain PRN Medication Response PRN Medication used for : Pain PRN Medication Effectiveness : Yes PRN Response Pain Scales : Numeric (8yrs & older) Numeric Pain Scale Age : Numeric (8yrs & older) Actual time of reassessment : Yes Tracey Jackson RN - 02/04/2022 16:52 EDT Numeric Pain Scale Numeric Pain Scale : 2 = Mild Pain Numeric Pain Score : 2 Tracey Jackson RN - 02/04/2022 16:52 EDT [facility] Comment on above: Order Comment: Check for other orders containing acetaminophen before administering. Max total daily amount is 4000 mg. Admission Assessment Adulton 02-04-2022 Admission Assessment Adult Adult Admission Data Entered On: 02/04/2022 15:24 EDT Performed On: 02/04/2022 15:21 EDT by Tracey Jackson RN ID Bracelets Patient Safety Grid ID Band on and Verified : Yes Fall Risk Director Enterprise Data Architecture : Yes Tracey Jackson RN - 02/04/2022 15:21 EDT (As Of: 02/04/2022 15:24:07 EDT) Allergies (Active) No Known Medication Allergies Estimated Onset Date: Unspecified ; Created By: Verna Garvin RPh; Reaction Status: Active ; Category: Drug ; Substance: No Known Medication Allergies ; Type: Allergy ; Updated By: Veran Garvin RPh; Reviewed Date: 02/04/2022 13:13 EDT Pollen allergy Estimated Onset Date: Unspecified ; Reactions: sneezing ; Created By: Heidy Boyd RN; Reaction Status: Active ; Category: Other ; Substance: Pollen allergy ; Type: Allergy ; Updated By: Heidy Boyd RN; Reviewed Date: 02/04/2022 13:13 EDT Subjective Pain Symptoms : Yes Numeric Pain Scale Acceptable Intensity : 5 = Moderate Pain Abuse/Violence Concerns? : Patient denies Renetta GARRIDO [facility] 02/04/2022 15:21 EDT Depression Screening Patient able to verbalize? : Yes Feeling Down, Depressed, Hopeless : Not at all Little Interest - Pleasure in Activities : Not at all Initial Depression Screen Score : 0 Depression Screening Score 0 : No IP Pt being evaluated or treated for BH conditions : No Renetta GARRIDO [facility] 02/04/2022 15:21 EDT Rapid Pain Data [id number] Primary Pain Location : Incisional Numeric Pain Scale : 10 = Severe Pain Numeric Pain Score : 10 Renetta GARRIDO [facility] 02/04/2022 15:21 EDT [place] Coma Eye Opening Response Keith : Spontaneously Best Verbal Response Keith : Oriented Best Motor Response Keith : Obeys simple commands [place] Coma Score : 15 Renetta GARRIDO [facility] 02/04/2022 15:21 EDT Neuro Characteristics of Speech : Clear Orientation : Oriented x 3 Level of Consciousness : Alert Affect / Behavior : Appropriate Renetta GARRIDO [facility] 02/04/2022 15:21 EDT Neurological Strengths Grid Left Upper Extremity Right Upper Extremity Left Lower Extremity Right Lower Extremity Strength : 5 able to move against full resistance 5 able to move against full resistance 5 able to move against full resistance 5 able to move against full resistance Sensation : Intact Intact Intact Pain Renetta GARRIDO [facility] 02/04/2022 15:21 EDT Renetta GARRIDO [facility] 02/04/2022 15:21 EDT Renetta GARRIDO [facility] 02/04/2022 15:21 EDT Renetta GARRIDO [facility] 02/04/2022 15:21 EDT Sensory Perception [place] : No impairment Extremity Movement : Equal Gait : Unable to assess Aspiration Risk : None CN VII Facial Expression and Symmetry : Facial movement symmetrical Tracey Jackson RN [facility] 02/04/2022 15:21 EDT CardioVascular Heart Rhythm : Regular Capillary Refill : Less than 2 seconds Edema : None Renetta RN, [facility] 02/04/2022 15:21 EDT Pulses Detailed Grid Radial Pulse, Left : 2+ Normal Radial Pulse, Right : 2+ Normal Dorsalis Pedis Pulse, Left : 2+ Normal Renetta GARRIDO, [facility] 02/04/2022 15:21 EDT Respiratory Respirations : Unlabored Respiratory Pattern Description : Regular Renetta GARRIDO [facility] 02/04/2022 15:21 EDT GABRIEL : Clear LLL : Clear RUL : Clear RML : Clear RLL : Clear Renetta GARRIDO, [facility] 02/04/2022 15:21 EDT Cough : None Renetta GARRIDO [facility] 02/04/2022 15:21 EDT Musculoskeletal Activity [place] : Walks frequently Mobility [place] : Slightly limited Renetta GARRIDO, [facility] 02/04/2022 15:21 EDT GI Abdomen Description : Symmetric Abdomen Palpation : Soft Renetta GARRIDO [facility] 02/04/2022 15:21 EDT Bowel Sounds Grid LUQ : Present RUQ : Present LLQ : Present RLQ : Present Renetta GARRIDO [facility] 02/04/2022 15:21 EDT Passing Flatus : Yes Bowel Movement Last Date Known : Yes Bowel Movement Last Date : 02/03/2022 EDT Renetta GARRIDO, [facility] 02/04/2022 15:21 EDT Urine Color : Yellow Urine Description : Clear Bladder Distention : Absent Renetta GARRIDO [facility] 02/04/2022 15:21 EDT Integumentary Skin Integrity : Intact Skin Temperature : Warm Skin Color : [place] Skin Turgor : Elastic Mucous Membrane Color : [place] Mucous Membrane Description : Moist Skin Description : Dry Renetta GARRIDO, [facility] 02/04/2022 15:21 EDT Education Responsible Learner/s Present : No Data Available Barriers to Learning : None evident TeachBack Methodology : TeachBack, Explanation Renetta GARRIDO [facility] 02/04/2022 15:21 EDT Pain Management : Verbalizes understanding Plan of Care : Needs practice/supervision Preoperative Instructions : Needs further teaching Renetta GARRIDO [facility] 02/04/2022 15:21 EDT Notifications PCP notified of your admission? : No Emergency Contact notified of your admission? : No Renetta GARRIDO, Madeleine - 02/04/2022 15:21 EDT Normal [facility] Comment on above: Order Comment: Order entered secondary to admission Anesthesiaon 02-04-2022 Anesthesia Patient: SADIE FERNANDEZ Age: 71 years Sex: Female : 1950 Associated Diagnoses: None Author: CHRISTIANO OTERO MD Postoperative Information Time Seen: Date & Time 02/04/2022 12:15:00. Post Operative Info: Post operative day: Post Anesthesia Care Unit. Assessment Postanesthesia assessment Vitals: Vital Signs 02/04/2022 12:15 EDT Heart Rate Monitored 93 bpm NORMAL Peripheral Pulse Rate 93 bpm NORMAL Respiratory Rate 15 br/min NORMAL Systolic Blood Pressure 156 mmHg HI Diastolic Blood Pressure 97 mmHg HI Mean Arterial Pressure, Cuff 127 mmHg SpO2 100 % NORMAL Oxygen Flow Rate 6 L/min Oxygen Therapy Simple mask , stable hemodynamics, normothermia . Mental status: at preoperative baseline. Respiratory support: normal oxygenation and ventilation. Pain: controlled. Nausea status: absence of nausea and vomiting. Postoperative hydration status: euvolemic. Normal [facility] Basic Admission Informationo n 02-04-2022 Basic Admission Information Basic Admission Information Entered On: 02/04/2022 17:25 EDT Performed On: 02/04/2022 17:22 EDT by Stephanie Martin Admission Height/Weight Height/Length Measured : 170 cm(Converted to: 5.58 ft, 66.93 in) Height/Length Dosing : 170 cm(Converted to: 5.58 ft, 66.93 in) Weight Measured : 120.4 kg(Converted to: 265 lb 7 oz, 265.437 lb) Weight Dosing : 120.4 kg(Converted to: 4,246.985 oz, 265.437 lb) BSA Measured : 2.38 BSA Dosing : 2.38 Body Mass Index Measured : 41.66 kg/m2 Body Mass Index Dosing : 42 Weight Measured Type of Scale : Patient Stated Weight Last Documented Height/Length : Height/Length Measured: 170 cm 02/04/22 07:15:00 Height/Length Dosin cm 02/04/22 07:15:00 Height/Length Estimated: No results available. Last Documented Weight and Type of Scale Used : Weight Measured Type of Scale: Standing Scale 02/04/22 07:15:00 Weight Measured: 120.4 kg 02/04/22 07:15:00 Weight Dosin.4 kg 02/04/22 07:15:00 Stephanie Martin - 02/04/2022 17:22 EDT Belongings Valuables/Belongings Grid Valuables at Bedside Clothes : Jacket, Pants, Shirt, Shoes, Undergarments Electronic Devices : Cell phone, Cell phone chronometer assembler and adjuster Miscellaneous : Cosmetic bag, Luggage Monetary Items : Wallet (Comment: little card with just id and insurance [Stephanie Martin - 02/04/2022 17:22 EDT] ) Personal Devices : Glasses Stephanie Maritn - 02/04/2022 17:22 EDT Room Orientation/Facility Policy Reviewed : Yes Patient Safety : Bed / Chair Alarm, Bed in low position, Call device within reach, Fall senior integration developer ID Band, Falling [place], ID band check, Mobility support items readily available, Non-Slip footwear, Personal items within reach, Sensory aids within reach, Upper/Half-length side-rails up, Traffic path in room free of clutter, Wheels locked Demonstrates Ability to Use Call Light Successfully : Yes Stephanie Martin - 02/04/2022 17:22 EDT Normal [facility] Comment on above: Order Comment: Order entered secondary to admission FENTANYL 100mcg INJon 2021 FENTANYL 100mcg INJ PRN Response Entered On: 02/04/2022 13:56 EDT Performed On: 02/04/2022 13:30 EDT by Sindy Lomeli RN Intervention Information: fentanyl Performed by Sindy Lomeli RN on 02/04/2022 12:52:00 EDT fentaNYL,50mcg IV Push,Left Hand,Moderate Pain PRN Medication Response PRN Medication used for : Pain PRN Medication Effectiveness : Yes PRN Response Pain Scales : FLACC (all ages) FLACC Pain Scale Age : FLACC (all ages) Actual time of reassessment : Yes Sindy Lomeli RN - 02/04/2022 13:56 EDT FLACC Face : Occasional grimace or frown, withdrawn, disinterested Legs : Normal position or relaxed Activity : Lying quietly, normal position, moves easily Cry : Moans or whimpers, occasional complaint Consolability : Reassured by occasional touching, hugging or being talked to, distractable Score : 3 Sindy Lomeli RN - 02/04/2022 13:56 EDT [facility] Comment on above: Order Comment: maxim um 200 mcg; Phase I PACU only; For pain level 4-6;HIGH ALERT:monitor for adverse effects; potential SOUND ALIKE/LOOK ALIKE-verify med; FENTANYL 100mcg INJ PRN Response Entered On: 02/04/2022 12:54 EDT Performed On: 02/04/2022 12:50 EDT by Sindy Lomeli RN Intervention Information: fentanyl Performed by Sindy Lomeli RN on 02/04/2022 12:08:00 EDT fentaNYL,50mcg IV Push,Left Hand,Moderate Pain PRN Medication Response PRN Medication used for : Pain PRN Medication Effectiveness : Yes PRN Response Pain Scales : FLACC (all ages) FLACC Pain Scale Age : FLACC (all ages) Actual time of reassessment : Yes Sindy Lomeli RN - 02/04/2022 12:54 EDT FLACC Face : Occasional grimace or frown, withdrawn, disinterested Legs : Uneasy, restless, tense Activity : Squirming, shifting back and forth, tense Cry : Moans or whimpers, occasional complaint Consolability : Reassured by occasional touching, hugging or being talked to, distractable Score : 5 Sindy Lomeli RN - 02/04/2022 12:54 EDT [facility] Comment on above: Order Comment: maxim um 200 mcg; Phase I PACU only; For pain level 4-6;HIGH ALERT:monitor for adverse effects; potential SOUND ALIKE/LOOK ALIKE-verify med; HYDROmorPHONE 0.5MG/0.5ML IN Marco 02-04-2022 HYDROmorPHONE 0.5MG/0.5ML INJ PRN Response Entered On: 02/04/2022 14:16 EDT Performed On: 02/04/2022 14:16 EDT by Sindy Lomeli RN Intervention Information: hydromorphone Performed by Sindy Lomeli RN on 02/04/2022 13:52:00 EDT hydromorphone,0.5mg IV Push,Left Hand,Moderate Pain PRN Medication Response PRN Medication used for : Pain PRN Medication Effectiveness : Yes PRN Response Pain Scales : FLACC (all ages) FLACC Pain Scale Age : FLACC (all ages) Actual time of reassessment : Yes Sindy Lomeli RN - 02/04/2022 14:15 EDT FLACC Face : No particular expression or smile Legs : Normal position or relaxed Activity : Lying quietly, normal position, moves easily Cry : Moans or whimpers, occasional complaint Consolability : Content, relaxed Score : 1 Sindy Lomeli RN - 02/04/2022 14:15 EDT Normal [facility] Comment on above: Order Comment: maxim um 2 mg; Phase I PACU only; For pain level 7-10;potential SOUND ALIKE/LOOK ALIKE-verify med;CAUTION: Hydromorphone IV is 7 times more potent than morphine IV; Intake and Output-Texton Intake and Output-Text Intake and Output Entered On: 02/04/2022 17:34 EDT Performed On: 02/04/2022 17:34 EDT by Tracey Jackson RN I&O Urine Voided : 450 mL Tracey Jackson RN - 02/04/2022 17:34 EDT Normal [facility] Nursing Clinical Noteon 10- Nursing Clinical Note 1700 Received from PACU. Med for post-op pain. Some drainege noted on RLE heel area. 1725 Moderate amt of drainege on right lower extremity . Dr Marcio paiz. Will reinforce. Up on BSC. + void. Normal [facility] OR Nursing Record - Main Hansel n 02-04-2022 OR Nursing Record - Main OR OR Nursing Record - Main OR Summary Primary Physician: CAM KHAN DPM Finalized Date/Time: 02/04/22 12:04:22 Pt. Name: SADIE FERNANDEZ Vern Lino/Sex: 1950 Female Med Rec #: [id number] Physician: Financial #: [id number] Pt. Type: A Room/Bed: / Admit/Disch: 02/04/22 07:10:20 - Institution: Transport to OR - Main OR Entry 1 By Delmer Izquierdo RN, Date/Time Leaving 02/04/22 08:26:00 Zuly GARRIDO, Tracy Yip Siderails Up? Yes Report Received From Saloni Cordero RN Last Modified By: Delmer Izquierdo RN 02/04/22 08:50:09 Case Times - Main OR Entry 1 Patient In Room Time 02/04/22 08:27:00 Out Room Time 02/04/22 11:58:00 Anesthesia Facility Times Induction Time 02/04/22 08:31:00 Stop Time 02/04/22 11:55:00 [place] Protocol Yes Completed Surgery Start Time 02/04/22 08:58:00 Stop Time 02/04/22 11:50:00 Last Modified By: Delmer Izquierdo RN 02/04/22 11:58:16 Surgical Procedures - Main OR Entry 1 Procedure Ankle Open Reduction Modifiers Right Internal Fixation Surgeon Procedure RIGHT ANKLE Primary Procedure Yes Description ARTHRODESIS,,RIGHT SUBTALAR JOINT ARTHRODESIS Primary Surgeon CAM KHAN DPM Start 02/04/22 08:58:00 Stop 02/04/22 11:48:00 Anesthesia Type General Surgical Service SN - Podiatry Last Modified By: Delmer Izquierdo RN 02/04/22 11:48:11 Case Attendance - Main OR Entry 1 Entry 2 Entry 3 Case Attendee JYOTI ORTEGA, CAM OTERO MD, CHRISTIANO HOLLAND DPM-ResidentPETER Performed Surgeon Primary Anesthesiologist Primary Resident Time In 02/04/22 08:27:00 02/04/22 08:27:00 02/04/22 08:27:00 Time Out 02/04/22 11:58:00 02/04/22 11:58:00 02/04/22 11:58:00 Procedure Ankle Open Reduction Ankle Open Reduction Ankle Open Reduction Internal Fixation(Right) Internal Fixation(Right) Internal Fixation(Right) Last Modified By: Timbo RN, Delmer Izquierdo RN, Delmer Izquierdo RNDelmer 02/04/22 11:58:18 02/04/22 11:58:18 02/04/22 11:58:18 Entry 4 Entry 5 Entry 6 Case Attendee Timbo GARRIDO, Delmer Carsuo RN, Tracy BUCKLEY DPM-Resident, NATHANAEL Role Performed Guillotine Trimmer [place] Guillotine Trimmer Primary Resident Time In 02/04/22 08:27:00 02/04/22 08:27:00 02/04/22 08:27:00 Time Out 02/04/22 11:58:00 02/04/22 11:58:00 02/04/22 11:58:00 Procedure Ankle Open Reduction Ankle Open Reduction Ankle Open Reduction Internal Fixation(Right) Internal Fixation(Right) Internal Fixation(Right) Last Modified By: Timbo RN, Delmer Izquierdo RN, Delmer Preston RN 02/04/22 11:58:18 02/04/22 11:58:18 02/04/22 11:58:18 Entry 7 Entry 8 Entry 9 Case Attendee Janette CHOPRA, Ilsa Howard RN, Kasandra Role Performed Scrub Primary Nailhead Puncher Scrub Relief Time In 02/04/22 08:27:00 02/04/22 08:27:00 02/04/22 11:17:00 Time Out 02/04/22 11:58:00 02/04/22 08:54:00 02/04/22 11:58:00 Procedure Ankle Open Reduction Ankle Open Reduction Ankle Open Reduction Internal Fixation(Right) Internal Fixation(Right) Internal Fixation(Right) Last Modified By: Timbo RN, Delmer Izquierdo RN, Delmer Preston RN 02/04/22 11:58:18 02/04/22 11:58:18 02/04/22 11:58:18 General Comments: SHEYLA TERESA-MEDICAL STUDENT JAYSON ESCOBEDO- MEDICAL STUDENT General Case Data - Main OR Entry 1 Case Information OR OR 10 Schedule Type Scheduled Case Level Level 5 Wound Class Clean Specialty SN - Podiatry ASA Class 3 Procedure History Yes Documented Diagnosis Preop Diagnosis PRIMARY OSTEOARTHRITIS Postop Diagnosis PRIMARY OSTEOARTHRITIS RIGHT ANKLE RIGHT ANKLE Last Modified By: Delmer Izquierdo RN 02/04/22 09:00:03 General Comments: FAMILY UPDATE GIVEN TO BREE IN fAMILY WAITING AREA 1037. Delays - Main OR Entry 1 Delay Reason No Delay Last Modified By: Delmer Izquierdo RN 02/04/22 09:09:04 Patient Positioning - Main OR Entry 1 Procedure Ankle Open Reduction Body Position Supine Internal Fixation(Right) Left Arm Position Extended on padded arm Right Arm Position Extended on padded arm board board Left Leg Position Extended Right Leg Position Other/see comments Press Points Checked Yes By JYOTI ORTEGA, BRANDEN LEVY MD, Timbo ALVARADO RN, Zuly Dowell RN, Christine Last Modified By: Delmer Izquierdo RN 02/04/22 09:12:21 General Comments: LEG BUMP TOWEL UNDER RIGHT YOUNGBLOOD, BLANKET BUMP UNDER LEG Skin Prep - Main OR Entry 1 Procedure Ankle Open Reduction Prep Area RIGHT LEG AND FOOT Internal Fixation(Right) Prep Agents Betadine Scrub By Ilsa Beasley Hair Removal Last Modified By: Delmer Izquierdo RN 02/04/22 10:02:13 Counts Verification - Main OR Entry 1 Entry 2 Entry 3 Count Type Initial First Closing Final Closing Count Participants Delmer Izquierdo RN, Yahner RN, Timbo Dowell RN, Janette Dowell FRUIT PRESS OPERATOR, Yudi Savage FRUIT PRESS OPERATOR, Glenn Bagley RN, Tracy Horner RN Count Status Correct Correct Items Counted Sponges, Sharps Sponges, S (more content not included)... Normal [facility] Briefcase Sewer Detailson 2021 Briefcase Sewer Details Briefcase Sewer Details Entered On: 02/04/2022 15:21 EDT Performed On: 02/04/2022 15:21 EDT by Tracey Jackson RN Briefcase Sewer Details Transport Mode Order Detail EV : Cart Isolation Precautions RTF : Post Procedure Location of Care, 02/04/2022 12:35:00 EDT, Surgical Unit (5E), Ordered Communication CONSTANT Order, 02/04/2022 12:24:00 EDT, Constant Order, Patients recovering in Critical Care, record vital signs Q10 min or more frequently for patient's condition or as per physician order. Patients do not require a PAR score (post anesthesia recovery)., Discontinued Oxygen Therapy, 02/04/2022 12:24:00 EDT, Nasal Cannula, 3L, Constant Order, overnight if SpO2 less than 95%, Ordered Oxygen Therapy, 02/04/2022 12:24:00 EDT, Simple Mask, 100%, Constant Order, in PACU, wean Oxygen to room air to baseline SpO2, Discontinued Communication CONSTANT Order, 02/04/2022 12:07:00 EDT, Constant Order, Current ACLS Provider may, Initiate [place] [employer] Advanced Cardiac Life support Algorithm per patient code status, Ordered Communication CONSTANT Order, 02/04/2022 12:07:00 EDT, Constant Order, STAT EKG for Chest Pain, STAT ABGs for Acute Respiratory Distress, STAT Potassium/Magnesium for any significant change in condition/rhythm, Ordered Reason VTE Prophylaxis Not Received, 02/04/2022 12:07:00 EDT, Patient is ambulatory, Ordered Communication CONSTANT Order, 02/04/2022 11:58:00 EDT, Constant Order, Patients recovering in Critical Care, record vital signs Q10 min or more frequently for patient's condition or as per physician order. Patients do not require a PAR score (post anesthesia recovery)., Ordered Oxygen Therapy, 02/04/2022 11:58:00 EDT, Nasal Cannula, 3L, Constant Order, overnight if SpO2 less than 95%, Ordered Oxygen Therapy, 02/04/2022 11:58:00 EDT, Simple Mask, 100%, Constant Order, in PACU, wean Oxygen to room air to baseline SpO2, Ordered History and Physical by House Physician, 02/04/2022 07:10:00 EDT, by House Physician on admit, 02/04/2022 07:10:00 EDT, Completed Obtain Consent, 02/04/2022 07:10:00 EDT, Completed Isolation Precaution Order Detail EV : NONE IV Order Detail - EV : Yes Oxygen Order Detail EV : Yes Order Detail EV : No Pacemaker Order Detail : 0 Briefcase Sewer Details Review Status : Reviewed, changes made Nurse Collects Blood Specimens : No Renetta GARRIDO, Madeleine - 02/04/2022 15:21 EDT Normal [facility] Comment on above: Order Comment: Order entered secondary to admission Briefcase Sewer Details- Texton 02-04-2022 Briefcase Sewer Details- Text Briefcase Sewer Details Entered On: 02/04/2022 8:03 EDT Performed On: 02/04/2022 8:01 EDT by Saloni Cordero RN Briefcase Sewer Details Transport Mode Order Detail EV : Cart Isolation Precautions RTF : History and Physical by House Physician, 02/04/2022 07:10:00 EDT, by House Physician on admit, 02/04/2022 07:10:00 EDT, Ordered Obtain Consent, 02/04/2022 07:10:00 EDT, Ordered Isolation Precaution Order Detail EV : NONE IV Order Detail - EV : Yes Oxygen Order Detail EV : No Order Detail EV : No Pacemaker Order Detail : 0 Briefcase Sewer Details Review Status : Reviewed, changes made Nurse Collects Blood Specimens : No Saloni Cordero RN - 02/04/2022 8:01 EDT Normal [facility] Outpatient Admission Data- T exton 02-04-2022 Outpatient Admission Data- Text Outpatient Admission Data Entered On: 02/04/2022 8:03 EDT Performed On: 02/04/2022 8:01 EDT by Saloni Cordero RN OP Assessment Mobility : Wheelchair Mental Status : Alert Oriented : Person, Place, Time Pupils Equal, Round, Reactive to Light, and Accommodation : Yes Pupil Size, Left : 3 mm Pupil Size, Right : 3 mm Heart : Regular Lungs : Clear Voided : Yes Pain Level and Site : nonw Person Driving Pt Home : [facility] [phone] Abdomen : Soft Bowel Sounds All Quadrants : Present Saloni Cordero RN - 02/04/2022 8:01 EDT Present on Admission Medical Devices : None Medical Devices for Med Administration : None Saloni Cordero RN - 02/04/2022 8:01 EDT Keith Coma Eye Opening Response [place] : Spontaneously Best Verbal Response Keith : Oriented Best Motor Response Keith : Obeys simple commands [place] Coma Score : 15 Saloni Cordero RN - 02/04/2022 8:01 EDT Outpatient Fall Risk GEN_Fall Risk Indicators_[id number] : Age 65 or greater, Medications altering equilibrium or cognitive judgement Fall Risk Band On : Yes Saloni Cordero RN - 02/04/2022 8:01 EDT Screening-Safety Domestic Concerns : None Feeling Down, Depressed, Hopeless : Not at all Little Interest - Pleasure in Activities : Not at all Initial Depression Screen Score : 0 Depression Screening Score 0 : No Saloni Cordero RN - 02/04/2022 8:01 EDT Normal [facility] PACU Phase I - Main ORon PACU Phase I - Main OR PACU Phase I - Main OR Summary Primary Physician: CAM KHAN DPM Finalized Date/Time: 02/04/22 14:58:37 Pt. Name: SADIE FERNANDEZ/Sex: 1950 Female Med Rec #: [id number] Physician: CAM KHAN DPM Financial #: [id number] Pt. Type: E Room/Bed: [place] [address] Admit/Disch: 02/04/22 07:10:20 - Institution: PACU I - Case Times - Main OR Entry 1 In PACU I 02/04/22 11:59:00 Ready for Transfer 02/04/22 14:50:00 Last Modified By: Sindy Lomeli RN 02/04/22 14:57:28 Finalized By: Sindy Lomeli RN Document Signatures Signed By: Sindy Lomeli RN 02/04/22 14:57 Sindy Lomeli RN 02/04/22 14:58 Normal [facility] Preop - Main ORon 02-04-2022 Preop - Main OR Preop - Main OR Summ lópez Primary Physician: CAM KHAN DPM Finalized Date/Time: 02/04/22 08:15:20 Pt. Name: SADIE FERNANDEZ/Sex: 1950 Female Med Rec #: [id number] Physician: Financial #: [id number] Pt. Type: A Room/Bed: / Admit/Disch: 02/04/22 07:10:20 - Institution: Preop - Case Times - Main OR Entry 1 Patient Arrival Time 02/04/22 07:11:00 Patient Ready for 02/04/22 07:50:00 Surgery Report Given to Delmer Izquierdo RN Modified By: Saloni Cordero RN 02/04/22 08:15:19 Finalized By: Saloni Cordero RN Document Signatures Signed By: Saloni Cordero RN 02/04/22 07:50 Saloni Cordero RN 02/04/22 08:15 Normal [facility] [place] Protocol/Pre-Proc TimeOut-Texton 02-04-2022 [place] Protocol/Pre-Proc TimeOut-Text [place] Protocol Entered On: 02/04/2022 8:03 EDT Performed On: 02/04/2022 8:01 EDT by Saloni Cordero RN All Procedures Procedure this U.P. is completed for: : RIGHT ANKLE ARTHRODESIS Procedure Location : Surgery Pre-Procedure Verification : Patient Identification (Name & Date), Informed Consent (Signed, Dated), Procedure Identified by Patient, Site Identified by Patient Saloni Cordero RN - 02/04/2022 8:01 EDT Allergy (As Of: 02/04/2022 08:03:33 EDT) Allergies (Active) No Known Medication Allergies Estimated Onset Date: Unspecified ; Created By: Verna Garvin RPh; Reaction Status: Active ; Category: Drug ; Substance: No Known Medication Allergies ; Type: Allergy ; Updated By: Verna Garvin RPh; Reviewed Date: 02/04/2022 8:03 EDT Pollen allergy Estimated Onset Date: Unspecified ; Reactions: sneezing ; Created By: Heidy Boyd RN; Reaction Status: Active ; Category: Other ; Substance: Pollen allergy ; Type: Allergy ; Updated By: Heidy Boyd RN; Reviewed Date: 02/04/2022 8:03 EDT Beta Jose E Beta Jose E History : Patient does not take a Beta Jose E Saloni Cordero RN - 02/04/2022 8:01 EDT Site Marking Site Marking : Operative or Invasive Site / Side Marked Per Policy Site : RIGHT ANKLE Laterality [place] Protocol : Right Site Verification Completed : By Provider, In Pre-op / Procedure Holding area Delmer Izquierdo RN - 02/04/2022 9:51 EDT Surgery / Sedation OR Procedure & Sedation Verification : History & Physical (within 30 days), Nursing Assessment Completed Relevant Images : Relevant Images / Diagrams Properly Labeled & Displayed Relevant Diagnostic Tests : Relevant Diagnostic Tests Available Blood Products : N/A Implants / Equiment : Required Implants & Special Equipment Available Correct Procedure : Accurate Procedure Consent Form, Correct Procedure, Correct Patient Position Antibiotics : Administration of Antibiotics or Fluids for Irrigation Purpose Safety Precautions : Safety Precautions Based on Patient Medication or History Date/Time of OR Procedure Sedation Checklist : 02/04/2022 08:26 EDT Delmer Izquierdo RN - 02/04/2022 9:51 EDT Final Verification Date/Time : 02/04/2022 08:57 EDT Verification : Patient Identified (Name and Date), Correct Procedure, Site / Side Marked & Visible toTeam, All Team Members are in Agreement Laterality : Right Timbo GARRIDO, Delmer - 02/04/2022 9:51 EDT Normal [facility] Preadmission Testing Progres s Noteon 02-01-2022 Preadmission Testing Progress Note SPOKE WITH PT VIA PHONE. INSTRUCTED TO STOP VITAMINS AND HERBALS. PT STATED SHE WOULD NOT STOP HER BIO-CMP. REFERRED PT TO HER SURGEON. INSTRUCTED TO TAKE BETA JOSE E AND BRING INHALER DAY OF SURGERY. Normal [facility] CULTURE URINEon 01-30-2022 CULTURE URINE Culture Observations : No growth Normal [facility] Comment on above: Performed By: #### U RCX #### [facility] [address] [place] [address] Dr. Bryan Villa UA RANDOM W/MICROSCOPICon BACTERIA NONE SEEN Normal NONE SEEN [facility] Comment on above: Performed By: #### U AMIC #### [facility] [address] [place] [address] Dr. Bryan Villa Bilirubin Ql (U) Negative Normal NEGATIVE [facility] Comment on above: Performed By: #### U AMIC #### [facility] [address] [place] [address] Dr. Bryan Villa CAST NONE SEEN Normal NONE SEEN [facility] Comment on above: Performed By: #### U AMIC #### [facility] [address] [place] [address] Dr. Bryan Villa Clarity (U) CLEAR Normal CLEAR [facility] Comment on above: Performed By: #### U AMIC #### [facility] [address] [address] [address] Bryan Villa Color (U) LT. YELLOW Normal YELLOW [facility] Comment on above: Performed By: #### U AMIC #### [facility] [address] [address] [address] Bryan Villa Crystals LM Nom (Urine sed) NONE SEEN Normal NONE SEEN [facility] Comment on above: Performed By: #### U AMIC #### [facility] [address] [address] [address] Bryan Villa Epithelial cells LM Ql (Urine sed) FEW Abnormal NONE SEEN /RARE [facility] Comment on above: Performed By: #### U AMIC #### [facility] [address] [address] [address] Bryan Villa Glucose Ql (U) Negative Normal NEGATIVE [facility] Comment on above: Performed By: #### U AMIC #### [facility] [address] [address] [address] Bryan Villa Hemoglobin Ql (U) Negative Normal NEGATIVE [facility] Comment on above: Performed By: #### U AMIC #### [facility] [address] [address] [address] Bryan Villa Ketones Ql (U) Negative Normal NEGATIVE [facility] Comment on above: Performed By: #### U AMIC #### [facility] [address] [address] [address] Bryan Villa LEUKOCYTES Negative Normal NEGATIVE [facility] Comment on above: Performed By: #### U AMIC #### [facility] [address] [address] [address] Bryan Villa MUCOUS NONE SEEN Normal NONE SEEN [facility] Comment on above: Performed By: #### U AMIC #### [facility] [address] [address] [address] Bryan Villa Nitrite Ql (U) Negative Normal NEGATIVE [facility] Comment on above: Performed By: #### U AMIC #### [facility] [address] [address] [address] Bryan Villa pH (U) 6.0 [pH] Normal 5-[address] [facility] Comment on above: Performed By: #### U AMIC #### [facility] [address] [place] [address] Dr. Bryan Villa RBC 0-2 Normal 0-[address] [facility] Comment on above: Performed By: #### U AMIC #### [facility] [address] [place] [address] Dr. Bryan Villa SPEC GRAVITY 1.025 Normal 1.005-<=1.025 [facility] Comment on above: Performed By: #### U AMIC #### [facility] [address] [place] [address] Dr. Bryan Villa UA PROTEIN Negative Normal NEGATIVE/ TRACE [facility] Comment on above: Performed By: #### U AMIC #### [facility] [address] [place] [address] Dr. Bryan Villa Urobilinogen Qn (U) 0.2 {Salome'U}/dL Normal 0.2 - 1. [address] [facility] Comment on above: Performed By: #### U AMIC #### [facility] [address] [place] [address] Dr. Bryan Villa WBC NONE SEEN Normal NONE SEEN [facility] Comment on above: Performed By: #### U AMIC #### [facility] [address] [place] [address] Dr. Bryan Villa AUTO DIFFon 01-28-2022 Baso Count 0.04 x1000 Normal 0.00-0.20 [facility] Comment on above: Performed By: #### 1 43446, [id number], 809001 ####[facility] [address]rt[address] [place] [address] Medical Director: Bib Ferraro MD Basos % 0.4 % Normal [facility] Comment on above: Performed By: #### 1 89069, [id number], 682723 ####[facility] Octhhhck18989 [place] [address] Medical Director: Bib Ferraro MD Eos Count 0.11 x1000 Normal 0.00-0.50 [facility] Comment on above: Performed By: #### 1 70309, [id number], 739082 ####[facility] Sxglbvll55148 [place] [address] Medical Director: Bib Ferraro MD Eosinophils/100 WBC (Bld) 1.1 % Normal [facility] Comment on above: Performed By: #### 1 14274, [id number], 989330 ####[facility] [address]yqviobs06760 [place] [address] Medical Director: Bib Ferraro MD Lymph Count 2.38 x1000 Normal 1.20-4.80 [facility] Comment on above: Performed By: #### 1 16890, 1102334, 535622 ####[facility] [address]xjjpvco24837 [place] [address] Medical Director: Bib Ferraro MD Lymphocytes/100 WBC (Bld) 25.3 % Normal [facility] Comment on above: Performed By: #### 1 33481, [id number], 697562 ####[facility] [address]teerin[address]59 [place] [address] Medical Director: Bib Ferraro MD Frontier Count 0.86 x1000 Normal 0.10-1.00 [facility] Comment on above: Performed By: #### 1 40161, [id number], 069290 ####[facility] Odbbtwvi72154 [place] [address] Medical Director: Bib Ferraro MD Monocytes/100 WBC (Bld) 9.1 % Normal [facility] Comment on above: Performed By: #### 1 93345, 4005765, 062873 ####[facility] Vhrghxic45575 [place] [address] Medical Director: Bib Ferraro MD Neutrophil Count (ANC) 6.00 x1000 Normal 1.40-8.80 [facility] Comment on above: Performed By: #### 1 26501, [id number], 945599 ####[facility] [address]yxzclia97[address] [place] [address] Medical Director: Bib Ferraro MD Neutrophils/100 WBC (Bld) 64.0 % Normal [facility] Comment on above: Performed By: #### 1 15505, [id number], 211795 ####[facility] [address]njbjkot42674 [place] [address] Medical Director: Bib Ferraro MD COMPMETAon 01-28-2022 Albumin [Mass/Vol] 4.0 g/dL Normal 3.4-5.0 [facility] Comment on above: Performed By: #### 1 72968, 9326593, 037055 ####[facility] Mobevyhu66353 [place] [address] Medical Director: Bib Ferraro MD Albumin/Globulin [Mass ratio] 1.2 {ratio} Normal [facility] Comment on above: Performed By: #### 1 44668, [id number], 041342 ####[facility] Whyhfmvm39613 [place] [address] Medical Director: Bib Ferraro MD Alk Phos 98 unit/L Normal 46-116 [facility] Comment on above: Performed By: #### 1 31646, 3033986, 345155 ####[facility] [address]ckzkan81443 [place] [address] Medical Director: Bib Ferraro MD Bilirubin [Mass/Vol] 0.60 mg/dL Normal 0.20-1.00 [facility] Comment on above: Result Comment: Use of this assay is not recommended for patients undergoing treatment with eltrombopag due to the potential for falsely elevated results. Performed By: #### 1 47729, [id number], 240770 ####[facility] [address]ensobqb57085 [place] [address] Medical Director: Bib Ferraro MD Calcium [Mass/Vol] 10.1 mg/dL Normal 8.7-10.4 [facility] Comment on above: Performed By: #### 1 36334, 7098534, 746062 ####[facility] Qvenrxks11960 [place] [address] Medical Director: Bib Ferraro MD Chloride [Moles/Vol] 102 mmol/L Normal 98-107 [facility] Comment on above: Performed By: #### 1 28905, 3391509, 671561 ####[facility] Lyzvorfs47189 [place] [address] Medical Director: Bib Ferraro MD CO2 [Moles/Vol] 32.0 mmol/L High 20.0-31.0 [facility] Comment on above: Performed By: #### 1 81577, 7698243, 445611 ####[facility] [address]wtzpglw14729 [place] [address] Medical Director: Bib Ferraro MD Creatinine [Mass/Vol] 1.0 mg/dL High 0.5-0.8 [facility] Comment on above: Performed By: #### 1 58132, 8877530, 872440 ####[facility] Qfaaojgy03502 [place] [address] Medical Director: Bib Ferraro MD GFR AA >60 Normal [facility] Comment on above: Result Comment: Afri can Algerian GFR Calc Medical judgement is necessary to interpret GFR. The calculated GFR may not accurately reflect renal status in patients >70 years, women, acutely ill hospitalized patients and patients with acute renal failure or known renal disease. The MDRD GFR formula is valid only for adults greater than 18 years of age. Note: Creatinine clearance (not GFR) should be used for drug dosing. Performed By: #### 1 43929, 7773763, 206012 ####[facility] [address] [place] [address] Medical Director: Bib Ferraro MD Globulin (S) [Mass/Vol] 3.2 g/dL Normal [facility] Comment on above: Performed By: #### 1 44939, 5274791, 122855 ####[facility] [address]mznsyku79200 [place] [address] Medical Director: Bib Ferraro MD Glomerular Filtration Rate 58 mL/min/1.73m? Normal [facility] Comment on above: Result Comment: Non- GFR Calc Medical judgement is necessary to interpret GFR. The calculated GFR may not accurately reflect renal status in patients >70 years, women, acutely ill hospitalized patients and patients with acute renal failure or known renal disease. The MDRD GFR formula is valid only for adults greater than 18 years of age. Note: Creatinine clearance (not GFR) should be used for drug dosing. Performed By: #### 1 82685, 1103648, 079516 ####[facility] Tdqnmowe84993 [place] [address] Medical Director: Bib Ferraro MD Glucose [Mass/Vol] 104 mg/dL Normal 74-106 [facility] Comment on above: Performed By: #### 1 69974, 5398098, 394844 ####[facility] [address]qgnrvk24947 [place] [address] Medical Director: Bib Ferraro MD GOT 23 unit/L Normal 15-37 [facility] Comment on above: Performed By: #### 1 40472, 6659875, 241755 ####[facility] [address]ukhux04867 [place] [address] Medical Director: Bib Ferraro MD GPT 43 unit/L Normal 10-49 [facility] Comment on above: Performed By: #### 1 24814, 7624022, 247494 ####[facility] Trmrnwhc49696 [place] [address] Medical Director: Bib Ferraro MD Osmolality [Osmolality] 284 mosm/kg Normal 275-295 [facility] Comment on above: Performed By: #### 1 28357, 1022549, 859323 ####[facility] H[address]xupto19060 [place] [address] Medical Director: Bib Ferraro MD Potassium [Moles/Vol] 4.5 mmol/L Normal 3.5-5.1 [facility] Comment on above: Performed By: #### 1 75650, 8538450, 831407 ####[facility] Maxeksqm03711 [place] [address] Medical Director: Bib Ferraro MD Protein [Mass/Vol] 7.2 g/dL Normal 5.7-8.2 [facility] Comment on above: Result Comment: Tota l Protein results may be increased in patients receiving dextran as a blood volume assistant produce manager Performed By: #### 1 78879, 7890373, 859211 ####[facility] Ndmaxnep37693 [place] [address] Medical Director: Bib Ferraro MD Sodium [Moles/Vol] 141 mmol/L Normal 135-145 [facility] Comment on above: Performed By: #### 1 72819, 4936227, 141367 ####[facility] Eychlcli63917 [place] [address] Medical Director: Bib Ferraro MD Urea nitrogen [Mass/Vol] 19 mg/dL Normal 9-23 [facility] Comment on above: Result Comment: - Ve nipuncture should occur prior to N-Acetyl Cysteine (NAC) or Metamizole (Sulpyrine) administration due to the potential for falsely depressed results. - Blood samples from some patients with monoclonal gammopathies may produce falsely elevated results Performed By: #### 1 53180, [id number], 921893 ####[facility] Nmizoxxe76[address] [place], [place] [address]) [phone] Director: Bib Ferraro MD Urea nitrogen/Creatinine [Mass ratio] 20.0 mg/mg Normal [facility] Comment on above: Performed By: #### 1 30882, 3539652, 957432 ####[facility] [address]mtksuyv40677 [place] [address] Medical Director: Bib Ferraro MD CT LOWER EXTREMITY WO CONTRA ST on 01-28-2022 CT LOWER EXTREMITY WO CONTRAST RIGHT EXAMINATION: CT right ankle without contrast INDICATION: Ankle pain. COMPARISON: None TECHNIQUE: Axial CT scan of the right ankle was obtained Coronal and sagittal reformats were provided. The CT exam was performed using one or more of the following dose reduction techniques: Automated exposure control, adjustment of the mA and/or kV according to patient size, and/or use of iterative reconstruction technique. FINDINGS: No fracture or dislocation. Diffuse soft tissue swelling is present about the ankle. Severe degenerative changes of the subtalar joint space in the tibiotalar joint space. Plantar and dorsal calcaneal spur formation. IMPRESSION: Extensive degenerative changes in the ankle and visualized hind foot. No fracture or dislocation. Electronically signed by: Felicita Mohan MD 01/28/2022 1:26 PM CDT Technologist: AL Dictated By: FELICITA MOHAN MD Signed By: FELICITA MOHAN MD Signed Out: 01/28/22 14:26:16 Normal [facility] HEMOon 01-28-2022 DIFF? No Normal [facility] Comment on above: Performed By: #### 1 54010, [id number], 829557 #### [facility] [address] [place] [address] Mobile Device Developer: Bib Ferraro MD Erythrocyte distribution width (RBC) [Ratio] 14.2 % Normal 11.5-14.5 [facility] Comment on above: Performed By: #### 1 42453, 4028373, 293777 #### [facility] [address] [place] [address] Mobile Device Developer: Bib Ferraro MD Hematocrit (Bld) [Volume fraction] 43.9 % Normal 36.0-46.0 [facility] Comment on above: Performed By: #### 1 20472, 1363066, 660411 #### [facility] [address] [place] [address] Mobile Device Developer: Bib Ferraro MD Hemoglobin (Bld) [Mass/Vol] 14.7 g/dL Normal 12.0-16.0 [facility] Comment on above: Performed By: #### 1 49520, 2850272, 705249 #### [facility] [address] [place] [address] Mobile Device Developer: Bib Ferraro MD Instr WBC 9.4 Normal [facility] Comment on above: Performed By: #### 1 08925, 0410551, 521801 #### [facility] [address] [place] [address] Mobile Device Developer: Bib Ferraro MD MCH (RBC) [Entitic mass] 30.6 pg Normal 27.0-34.0 [facility] Comment on above: Performed By: #### 1 36188, 8512767, 194697 #### [facility] [address] [place] [address] Mobile Device Developer: Bib Ferraro MD MCHC (RBC) [Mass/Vol] 33.5 g/dL Normal 32.0-37.0 [facility] Comment on above: Performed By: #### 1 44742, 7835937, 991023 #### [facility] [address] [place] [address] Mobile Device Developer: Bib Ferraro MD MCV (RBC) [Entitic vol] 91.3 fL Normal 80.0-100.0 [facility] Comment on above: Performed By: #### 1 75691, 1000142, 265997 #### [facility] [address] [place] [address] Mobile Device Developer: Bib Ferraro MD Nucleated RBC 0 /100WBC Normal [facility] Comment on above: Performed By: #### 1 49658, 6499155, 379777 #### [facility] [address] [place] [address] Mobile Device Developer: Bib Ferraro MD Platelet 238 x10 Normal 150-450 [facility] Comment on above: Performed By: #### 1 10853, 9902443, 018693 #### [facility] [address] [place] [address] Mobile Device Developer: Bib Ferraro MD Platelet mean volume (Bld) [Entitic vol] 9.2 fL Normal 7.4-10.4 [facility] Comment on above: Performed By: #### 1 95939, 8910832, 360534 #### [facility] [address] [place] [address] Mobile Device Developer: Bib Ferraro MD RBC 4.81 x10 Normal 4.20-5.40 [facility] Comment on above: Result Comment: Note : RBC morphology is normal unless otherwise stated. Evaluation performed only if differential is requested. Performed By: #### 1 25122, 1073439, 006721 #### [facility] [address] [place] [address] Mobile Device Developer: Bib Ferraro MD WBC 9.4 x10 Normal 4.5-11.0 [facility] Comment on above: Performed By: #### 1 07391, 7045928, 943993 #### [facility] [address] [place] [address] Mobile Device Developer: Bib Ferraro MD [facility] POD[facility] Physician Progr ess Noteon 12-16-2021 [facility] PODIATRY Physician Progress Note Chief Complaint Patient here today to discuss possible right ankle surgery. She has chronic right ankle pain. She reports injection last visit provided some relief. She was ankle support brace. Pain 6/10 today. History of Present Illness Patient presents to clinic for follow-up of right foot and ankle pain she states that she had previous discussions with Dr. Putnam regarding right ankle fusion versus right total ankle replacement. At her last visit in early October she was given an injection to her right ankle which she states did provide relief. She also began to use an ankle support brace as well as more supportive shoes which have provided some relief. She ambulates with a walker and presents with her sister today. Despite these measures, the patient states her pain is still a 6 out of 10 on a daily basis. She is interested in long-term treatment options including surgical intervention should it be indicated. Of note, the patient states she did gain approximately 25 pounds during the . She states she does have arthritis throughout her body and has had multiple joints replaced including shoulder and both knees. She denies any overt trauma to her right lower extremity. She denies any constitutional symptoms today. Physical Exam Vitals & Measurements Height/Length Measured: 169 cm (12/11/21 16:06:00) Weight Measured: 125 kg (12/11/21 16:06:00) Body Mass Index Measured: 43.77 kg/m2 (12/11/21 16:06:00) Weight Measured - lbs2: 275 lb (12/11/21 16:06:00) Height/Length Measured - in2: 66.5 in (12/11/21 16:06:00) Body Mass Index Measured English2: 43.72 kg/m2 (12/11/21 16:06:00) BSA: 2.42 m2 (12/11/21 16:06:00) Ht/Wt Measurement Refused by Patient?2: No (12/11/21 16:06:00) Depression Screening Scores Initial Depression Screen Score: 0 (12/11/21 16:06:00) Fall Risk Assessment Is the patient ambulatory (mobile): Yes (12/11/21 16:06:00) Have you had a fall within the past: No (12/11/21 16:06:00) Have you had 2 or more falls in the past: No (12/11/21 16:06:00) General: Alert and oriented x3. In no acute distress. Lower Extremity Physical Exam: Vascular: DP and PT pulses are palpable, bilateral. CFT < 3 seconds to all digits, bilateral. Edema is present to the right ankle Hair growth is present to the level of the digits, bilateral. Skin temperature is within normal limits, warm to warm, from proximal tibial tuberosity to distal digits. Neurologic: Epicritic and protopathic sensations are grossly intact, bilateral. Saph/sural/SP/DP/planta r sensation intact to light touch, bilateral. Dermatologic: Skin appears well maintained and hydrated with normal texture, turgor, and temperature. No open lesions, bilateral. Interdigital maceration absent, bilateral. Ecchymosis is absent, bilateral. Signs of any soft tissue infection or cellulitis: absent. Musculoskeletal: EHL/FHL/GS/TA gross motor intact with 5/5 muscle strength, bilateral. Tenderness to palpation: Right ankle medially and anteriorly with palpation Biomechanical: Ankle ROM: Decreased to almost 0 right. Supple with the knee both extended and flexed, LEFT Subtalar joint ROM: supple within normal range of motion, bilateral. First MTPJ ROM: supple within normal limits of range of motion, bilateral. X-rays reviewed from previous encounter. X-rays reveal significantly decreased joint space of the right ankle with malalignment of the talus. Assessment/Plan This Visit Diagnosis 1. Primary osteoarthritis of right ankle M19.071 Ordered: AMB Ankle orthosis, right, stirrup rigid [id number], 12/11/2021 09:10:00 EDT, Primary osteoarthritis of right ankle / Pain in right ankle and joints of right foot / Local edema / Difficulty walking, 1 AMB Office/Outpt Est Pt Mod MDM / 30-39 min [id number], 12/11/2021 09:10:00 EDT, Primary osteoarthritis of right ankle / Pain in right ankle and joints of right foot / Local edema / Difficulty walking 2. Pain in right ankle and joints of right foot M25.571 Ordered: AMB Ankle orthosis, right, stirrup rigid [id number], 12/11/2021 09:10:00 EDT, Primary osteoarthritis of right ankle / Pain in right ankle and joints of right foot / Local edema / Difficulty walking, 1 AMB Office/Outpt Est Pt Mod MDM / 30-39 min [id number], 12/11/2021 09:10:00 EDT, Primary osteoarthritis of right ankle / Pain in right ankle and joints of right foot / Local edema / Difficulty walking 3. Local edema R60.0 Ordered: AMB Ankle orthosis, right, stirrup rigid [id number], 12/11/2021 09:10:00 EDT, Primary osteoarthritis of right ankle / Pain in right ankle and joints of right foot / Local edema / Difficulty walking, 1 AMB Office/Outpt Est Pt Mod MDM / 30-39 min [id number], 12/11/2021 09:10:00 EDT, Primary osteoarthritis of right ankle / Pain in right ankle and joints of right foot / Local edema / Difficulty walking 4. Difficulty walking R26.2 Ordered: AMB Ankle orthosis, right, stirrup rigid [id number], 12/11/2021 09:10:00 EDT, Primary osteoarthritis of right (more content not included)... Normal [facility] Ambulatory Clinical Summaryo n 12-11-2021 Ambulatory Clinical Summary SADIE FERNANDEZ :1950 Visit Date:12/11/2021 Ambulatory Visit Instructions Your Care Team Attending Physician - JYOTI ORTEGA, CAM Primary Care Physician - TRACE DOZIER Procedures Performed RIGHT TOTAL HIP REPLACEMENT (04/05/2019) Lumbar Laminectomy Posterior with Fusion. (05/09/2017) 2 BACK SURGERY WITH HARDWARE INSERTION 2006 GALLBLADDER 2008 Left acetabular revision left hip revision LEFT TOTAL HIP REPLACEMENT 2007 right total knee Discharge Vitals Height 169 cm Weight 125 kg BMI 43.77 Height/Length Measured: 169 cm (12/11/21 16:06:00) Weight Measured: 125 kg (12/11/21 16:06:00) Body Mass Index Measured: 43.77 kg/m2 (12/11/21 16:06:00) Weight Measured - lbs2: 275 lb (12/11/21 16:06:00) Height/Length Measured - in2: 66.5 in (12/11/21 16:06:00) Body Mass Index Measured English2: 43.72 kg/m2 (12/11/21 16:06:00) BSA: 2.42 m2 (12/11/21 16:06:00) Ht/Wt Measurement Refused by Patient?2: No (12/11/21 16:06:00) What to do next Scheduled Follow-Up Appointments No results Medications What How Much When Instructions Unchanged acetaminophen-oxycodone (Percocet 5/ 325 ([id number]) oral tablet) See instructions Take 1 to 2 tablets by mouth every 4 to 6 hours, As needed for as needed for pain Unchanged albuterol = Proventil, Ventolin (ProAir HFA 90 mcg/ inh inhalation aerosol) 2 Puffs Inhalation FOUR TIMES A DAY as needed for as needed for wheezing Unchanged aspirin (aspirin 81 mg oral delayed release tablet) 1 Tabs Oral DAILY WITH BREAKFAST Unchanged biotin (Hair, Skin & Nails) 5 Milligram Oral DAILY Unchanged calcium carbonate 2,400 Milligram Oral DAILY Unchanged carvedilol (Coreg 6.25 mg oral tablet) 1 Tabs Oral TWICE A DAY Unchanged cyanocobalamin (cyanocobalamin 1000 mcg oral tablet) 2 Tabs Oral DAILY Unchanged cyclobenzaprine = Flexeril (cyclobenzaprine 10 mg oral tablet) 1 Tabs Oral EVERY EIGHT HOURS as needed for as needed for muscle spasm Unchanged diclofenac (diclofenac sodium (= Voltaren) 75 mg oral delayed release tablet) 1 Tabs Oral EVERY OTHER DAY as needed for as needed for pain Unchanged esomeprazole (NexIUM 40 mg oral delayed release capsule) 1 Capsules Oral DAILY Unchanged ginkgo (Ginkgo Biloba) 1 Tabs Oral DAILY Unchanged glucosamine (glucosamine hydrochloride 1500 mg oral tablet) 1 Tabs Oral DAILY Unchanged multivitamin with minerals 1 Tabs Oral DAILY Unchanged Non-Formulary Med (BIO-CMP (CALIUM,MAGNESIUM,PHOSP HATE) OTC) 1 Tabs Oral DAILY Unchanged omega-3 polyunsaturated fatty acids ([place]awnee-3 1000 mg oral capsule) 2 Capsules Oral DAILY Unchanged traMADol (traMADol 50 mg oral tablet) 1 to 2 tabs Oral EVERY SIX HOURS as needed for as needed for pain Allergies No Known Medication Allergies Pollen allergy (sneezing) Problems Ongoing - Any problem that you are currently receiving treatment for. Lumbar stenosis Primary osteoarthritis of right ankle Spondylolisthesis Historical - Any problem that you are no longer receiving treatment for. Arthritis Asthma Back pain High Blood Pressure Reflux Common Emergency Awareness Tips IS IT A STROKE? Act FAST and Check for these signs: FACE Does the face look uneven? ARM Does one arm drift down? SPEECH Does their speech sound strange? TIME Call at any sign of stroke Heart Attack Signs Chest discomfort: Most heart attacks involve discomfort in the center of the chest and lasts more than a few minutes, or goes away and comes back. It can feel like uncomfortable pressure, squeezing, fullness or pain. Discomfort in upper body: Symptoms can include pain or discomfort in one or both arms, back, neck, jaw or stomach. Shortness of breath: With or without discomfort. Other signs: Breaking out in a cold sweat, nausea, or lightheaded. Remember, MINUTES DO MATTER. If you experience any of these heart attack warning signs, call 12-24- to get immediate medical attention! Normal [facility] Ambulatory Clinical Summary SADIE FERNANDEZ :1950 Visit Date:12/11/2021 Ambulatory Visit Instructions Your Care Team Attending Physician - CAM KHAN DPM Primary Care Physician - TRACE DOZIER Procedures Performed RIGHT TOTAL HIP REPLACEMENT (04/05/2019) Lumbar Laminectomy Posterior with Fusion. (05/09/2017) 2 BACK SURGERY WITH HARDWARE INSERTION 2006 GALLBLADDER 2008 Left acetabular revision left hip revision LEFT TOTAL HIP REPLACEMENT 2006 right total knee Discharge Vitals Height 169 cm Weight 125 kg BMI 43.77 Height/Length Measured: 169 cm (12/11/21 16:06:00) Weight Measured: 125 kg (12/11/21 16:06:00) Body Mass Index Measured: 43.77 kg/m2 (12/11/21 16:06:00) Weight Measured - lbs2: 275 lb (12/11/21 16:06:00) Height/Length Measured - in2: 66.5 in (12/11/21 16:06:00) Body Mass Index Measured English2: 43.72 kg/m2 (12/11/21 16:06:00) BSA: 2.42 m2 (12/11/21 16:06:00) Ht/Wt Measurement Refused by Patient?2: No (12/11/21 16:06:00) What to do next Scheduled Follow-Up Appointments No results Medications What How Much When Instructions Unchanged acetaminophen-oxycodone (Percocet 5/ 325 ([id number]) oral tablet) See instructions Take 1 to 2 tablets by mouth every 4 to 6 hours, As needed for as needed for pain Unchanged albuterol = Proventil, Ventolin (ProAir HFA 90 mcg/ inh inhalation aerosol) 2 Puffs Inhalation FOUR TIMES A DAY as needed for as needed for wheezing Unchanged aspirin (aspirin 81 mg oral delayed release tablet) 1 Tabs Oral DAILY WITH BREAKFAST Unchanged biotin (Hair, Skin & Nails) 5 Milligram Oral DAILY Unchanged calcium carbonate 2,400 Milligram Oral DAILY Unchanged carvedilol (Coreg 6.25 mg oral tablet) 1 Tabs Oral TWICE A DAY Unchanged cyanocobalamin (cyanocobalamin 1000 mcg oral tablet) 2 Tabs Oral DAILY Unchanged cyclobenzaprine = Flexeril (cyclobenzaprine 10 mg oral tablet) 1 Tabs Oral EVERY EIGHT HOURS as needed for as needed for muscle spasm Unchanged diclofenac (diclofenac sodium (= Voltaren) 75 mg oral delayed release tablet) 1 Tabs Oral EVERY OTHER DAY as needed for as needed for pain Unchanged esomeprazole (NexIUM 40 mg oral delayed release capsule) 1 Capsules Oral DAILY Unchanged ginkgo (Ginkgo Biloba) 1 Tabs Oral DAILY Unchanged glucosamine (glucosamine hydrochloride 1500 mg oral tablet) 1 Tabs Oral DAILY Unchanged multivitamin with minerals 1 Tabs Oral DAILY Unchanged Non-Formulary Med (BIO-CMP (CALIUM,MAGNESIUM,PHOSP HATE) OTC) 1 Tabs Oral DAILY Unchanged omega-3 polyunsaturated fatty acids (Shawnee-3 1000 mg oral capsule) 2 Capsules Oral DAILY Unchanged traMADol (traMADol 50 mg oral tablet) 1 to 2 tabs Oral EVERY SIX HOURS as needed for as needed for pain Allergies No Known Medication Allergies Pollen allergy (sneezing) Problems Ongoing - Any problem that you are currently receiving treatment for. Lumbar stenosis Primary osteoarthritis of right ankle Spondylolisthesis Historical - Any problem that you are no longer receiving treatment for. Arthritis Asthma Back pain High Blood Pressure Reflux Common Emergency Awareness Tips IS IT A STROKE? Act FAST and Check for these signs: FACE Does the face look uneven? ARM Does one arm drift down? SPEECH Does their speech sound strange? TIME Call at any sign of stroke Heart Attack Signs Chest discomfort: Most heart attacks involve discomfort in the center of the chest and lasts more than a few minutes, or goes away and comes back. It can feel like uncomfortable pressure, squeezing, fullness or pain. Discomfort in upper body: Symptoms can include pain or discomfort in one or both arms, back, neck, jaw or stomach. Shortness of breath: With or without discomfort. Other signs: Breaking out in a cold sweat, nausea, or lightheaded. Remember, MINUTES DO MATTER. If you experience any of these heart attack warning signs, call 9-1-1 to get immediate medical attention! Normal [facility] Comprehensive Intake - Texto n 12-11-2021 Comprehensive Intake - Text Comprehensive Intake Entered On: 12/11/2021 16:44 EDT Performed On: 12/11/2021 16:06 EDT by Leeanne Jones LPN Summary Chief Complaint : Patient here today to discuss possible right ankle surgery. She has chronic right ankle pain. She reports injection last visit provided some relief. She was ankle support brace. Pain /10 today. Advance Directive : Yes Bladder Control Issues? : No Urine Leakage? : No Presence or absence of urinary incontinence assessed : Yes CPT-II Medication list doc'd in medical record : Yes Influenza immunization administered or previously received : Yes Pneumococcal vaccine administered or previously received : Yes Leeanne Jones LPN - 12/11/2021 16:06 EDT Measurements Ht/Wt Measurement Refused by Patient? : No Weight Measured : 125 kg(Converted to: 275 lb 9 oz, 275.578 lb) Height/Length Measured : 169 cm(Converted to: 5 ft 7 in, 66.54 in) Body Mass Index Measured : 43.77 kg/m2 Body Mass Index documented : Yes Weight Measured - lbs : 275 lb(Converted to: 275 lb 0 oz, 125 kg) Height/Length Measured - in : 66.5 in(Converted to: 5 ft 7 in, 169 cm) Body Mass Index Measured Sammar[place] : 43.72 kg/m2 BSA [place] : 2.42 m2 Leeanne Jones LPN - 12/11/2021 16:06 EDT Vitals Require BP : No Pain Present : Yes actual or suspected pain Pain : 6 Pain severity quantified : Pain present Primary Pain Location : Ankle Leeanne Jones LPN - 12/11/2021 16:06 EDT Infection Screening - Ambulatory Exposure AND/OR close contact with a person under investigation or laboratory-confirmed COVID-19 individual within 14 days of symptom onset AND/OR any of the following: : No Do you live/work in a high risk situation (congregated living, hemodialysis, infusion clinic, residential, assisted living, assisted, homeless snf, etc.)? : No Leeanne Jones LPN - 12/11/2021 16:06 EDT Depression Screening Is patient currently : None of the Below Feeling Down, Depressed, Hopeless : Not at all Little Interest - Pleasure in Activities : Not at all Initial Depression Screen Score : 0 Depression Screening Score 0 : No Leeanne Jones LPN - 12/11/2021 16:06 EDT Family History Family History (As Of: 12/11/2021 16:44:40 EDT) Sister: Relation: Sister ; Gender: Female ; Nomenclature: Reflux. ; Value: Positive Sister: Relation: Sister ; Gender: Female ; Nomenclature: Reflux. ; Value: Positive Sister: Relation: Sister ; Gender: Female ; Nomenclature: Reflux. ; Value: Positive Father: Relation: Father ; Gender: Male ; Nomenclature: Prostate cancer. ; Comments: 12/11/2012 12:45 EDT - Steph Stover RN AGE 71 OR 72 ; Value: Positive Nomenclature: Degenerative disc disease ; Value: Positive Nomenclature: Prostate cancer.. ; Value: Positive Nomenclature: Coronary artery disease ; Value: Positive Mother: Relation: Mother ; Gender: Female ; ; Age at : 85 Years Nomenclature: Heart failure ; Value: Positive Nomenclature: Pneumonia ; Value: Positive Nomenclature: Depression. ; Value: Positive Nomenclature: Dementia ; Value: Positive Social History Social History (As Of: 12/11/2021 16:44:40 EDT) Alcohol: Denies Alcohol Use (Last Updated: 10/23/2021 13:59:48 EDT by Leeanne Jones LPN ) Tobacco: Denies Tobacco Use Never smoker (Last Updated: 12/11/2012 12:55:13 EDT by Steph Stover RN) Substance Abuse: Denies Substance Abuse (Last Updated: 04/28/2017 11:16:03 EST by Heidy Boyd RN ) Home/Environment: Lives with Alone. Living situation: Home/Independent. Home equipment: Walker/Cane, ELEVATED TOILET SEAT . Home monitoring equipment: None. Special/Community resources: None. Mobility prior to admit: Independent. Home Barriers: None. Will patient require additional/new services upon discharge? No. (Last Updated: 12/11/2012 12:56:44 EDT by Steph Stover RN) Domestic Concerns: No, Stressors Surgery/Procedure. Emotional support available Yes. Coping: Effective. Pt's responsibilities: Hobbies/Play/Sports, Housework, Laundry, Meal preparation. Hospital finance concerns: No. Finance concerns: No. Concern for family members: No. Major illness in household: No. Family/Friends available to help: No. 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 Activity level: Moderate physical work. Highest education level: University degree(s). Operates hazardous equipment: No. Workplace hazards: None. (Last Updated: 12/11/2012 12:58:02 EDT by Steph Stover RN) Exercise: Exercise duration: 0. Self assessment: Good condition. (Last Updated: 12/11/2012 12:58:35 EDT by Steph Stover RN) Falls Risk Assessment Is the patient ambulatory (mobile) : Yes Have you had 2 or more falls in the past year : No Have you had a fall within the past year that has caused an injury : No Patient screen (more content not included)... Normal [facility] MR L-SPINE WO/W CONTRASTon 0 07-06-2018 MR L-SPINE WO/W CONTRAST Patient Name: SAIDE FERNANDEZ STUDY: MR L-SPINE WO/W CONTRAST; 07/06/2018 1:48 pm INDICATION: LOW BACK PAIN WT 225 PT GETTING LABS AT [facility]. COMPARISON: None. ACCESSION NUMBER(S): [id number] ORDERING CLINICIAN: VIPIN STRINGER TECHNIQUE: Sagittal T1, T2, STIR, axial T1 and T2 weighted images of the lumbar spine were acquired. T1 sagittal and axial images were obtained following 20 cc MultiHance gadolinium IV contrast. FINDINGS: Alignment: There is grade 1 spondylolisthesis L4-5. Vertebrae/Intervertebra l Discs: There has been laminectomy L3 through L5. There is metal artifact consistent with pedicle screw and jorge fixation at L3-4.There is loss of disc space L3 through L5, and intermediate intensity signal within the disc at L5-S1. No focal marrow lesions are identified outside areas of artifact. Conus: The lower thoracic cord appears unremarkable. The conus terminates normally at L1-2. T12-L1: There is circumferential disc bulge producing mild canal stenosis though the foramina remain patent. L1-2: There is no significant central canal or neural foraminal stenosis. L2-3: There is slight circumferential disc bulge with some facet hypertrophy combining for mild canal stenosis. The left foramina is patent and there is mild compromise of the right. L3-4: There is posterior disc osteophyte complex and bilateral facet hypertrophy within the artifact. This produces mild transverse narrowing of the thecal sac which is decompressed posteriorly. There is mild compromise of bilateral foramen. L4-5: There is posterior epidural fluid collection that measures 3.5 cm transverse by 0.5 cm AP by 3.5 cm in height. There is mild flattening of the posterior margin of the thecal sac with widely patent canal. Evaluation of foramen limited by artifact though there is suggestion of mild compromise. L5-S1: The canal is decompressed. The left foramina is patent and there is mild compromise of the right. The prevertebral and posterior paraspinous soft tissues are unremarkable. There is an incidental 16 mm left renal cyst. IMPRESSION: There are postoperative and degenerative changes without area of moderate or high-grade canal stenosis. There are scattered areas of mild foraminal compromise. Incidental 16 mm left renal cyst. Interpreted within [place], [place] Electronically signed by: SIMBA BACH MD, PHD Normal [facility] Encounters Encounter Date Encounter Type Care Provider Facility Start: 10-19-2022 End: 10-20-2022 ambulatory CAM KHAN DPM Facility:[facility] Start: 08-24-2022 End: 08-24-[address] TRACE DOZIER . Facility: Start: 08-06-2022 End: 08-07-2022 ambulatory CAM KHAN DPM Facility:[facility] Start: 05-11-2022 End: 05-12-2022 ambulatory CAM KHAN DPM Facility:[facility] Start: 04-13-2022 End: 04-14-2022 ambulatory CAM KHAN DPM Facility:[facility] Start: 03-15-2022 End: 03-16-2022 ambulatory CAM KHAN DPM Facility:[facility] Start: 03-07-2022 End: 03-07-2022 ambulatory CAM KHAN DPM Facility:[facility] Start: 03-01-2022 End: 03-02-2022 ambulatory CAM KHAN DPM Facility:[facility] Start: 02-15-2022 End: 02-16-2022 ambulatory CAM KHAN DPM Facility:[facility] Start: 02-12-2022 ambulatory TRACE DOZIER Facility: [facility] Start: 02-10-2022 End: 02-11-2022 ambulatory CAM KHAN DPM Facility:[facility] Start: 02-04-2022 End: 02-07-2022 Evaluation and management of inpatient CAM KHAN DPM Facility:[id number] Start: 01-30-2022 End: 01-31-[address] TRACE DOZIER . Facility:[facility] Start: 01-28-2022 End: 01-29-2022 ambulatory CAM KHAN DPM Facility:[id number] Start: 12-11-2021 End: 12-12-2021 ambulatory TRACE DOZIER Facility:[facility] Start: 11-30-[address] TRACE DOZIER . Facili ty:[facility] Start: 11-12-2021 End: 11-12-2021 ambulatory ALEXANDRE PUTNAM DPM Facility:[facility] Payers Date Payer Category Payer Medicare 2008 Unknown 2008 Unknown [id number] 1959 Medicare [id number] 1959 Self-pay [id number] 1959 Unknown [id number] 1950 Unknown [id number] 2.16.84 [id number] 1950 Unknown [id number] .16.84 0.1.075757.3.579.2.593 1950 Unknown [id number] .16.84 0.1.476554.3.579.2.593 1950 Unknown [id number] 2.16.8 40.1.449868.3.579.2.159 1950 Unknown [id number] 2.16.8 40.1.125565.3.579.2.159 1950 Unknown [id number] 2.16.8 40.1.562918.3.579.2.159 1950 Unknown [id number] 2.16.8 40.1.364265.3.579.2.159 1950 Unknown [id number] 2.16.8 40.1.321744.3.579.2.159 1950 Unknown [id number] 2.16.8 40.1.845347.3.579.2.159 1950 Unknown [id number] 2.16.8 40.1.034739.3.579.2.159 1950 Unknown [id number] 2.16.8 40.1.302688.3.579.2.159 1950 Unknown [id number] 2.16.8 40.1.194926.3.579.2.159 1950 Unknown [id number] 2.16.8 40.1.576848.3.579.2.159 1950 Unknown [id number] 2.16.8 40.1.389574.3.579.2.159 1950 Unknown [id number] 2.16.8 40.1.505571.3.579.2.159 1950 Unknown [id number] 2.16.8 40.1.824445.3.579.2.159 1950 Unknown [id number] 2.16.8 40.1.218677.3.579.2.159 1950 Unknown [id number] 2.16.8 40.1.335425.3.579.2.159 Clinical Notes 11-18-2021 to 03-01-2022 Note Date & Type Note Facility 03-01-2022 Note Admission Informatio n Patient is a 71-year-old female who underwent arthrodesis of the right ankle joint, subtalar joint with intramedullary nail placement. Patient tolerated the procedure well without complication and was admitted for management of postoperative pain. Patient stay was uncomplicated. She is vitally stable for discharge, with pain well controlled. Admit Date/Time:02/05/2022 16:08 EDT Discharge Date 02/07/2022 Admitting Physician - JYOTI ORTEGA, CAM Attending Physician - JYOTI ORTEGA, CAM Primary Care Physician - TRACE DOZIER Discharge Medications Unchanged acetaminophen-oxycodone (acetaminophen-oxycodone 325 mg-5 mg oral tablet = Percocet)1 Tabs Oral EVERY SIX HOURS as needed for pain for 7 Days. Refills: 0. acetaminophen-oxycodone (acetaminophen-oxycodone 325 mg-5 mg oral tablet = Percocet)1 Tabs Oral EVERY SIX HOURS as needed for pain for 10 Days. Refills: 0. acetaminophen-oxycodone (acetaminophen-oxycodone 325 mg-5 mg oral tablet = Percocet)2 Tabs Oral EVERY SIX HOURS as needed for pain for 7 Days. Refills: 0. acetaminophen-oxycodone (acetaminophen-oxycodone 325 mg-5 mg oral tablet = Percocet)1 Tabs Oral EVERY SIX HOURS as needed for pain for 7 Days. Refills: 0. albuterol = Proventil, Ventolin (albuterol 90 mcg/inh inhalation aerosol)2 Puffs Inhalation EVERY FOUR HOURS as needed Wheezing or Dyspnea. aspirin (aspirin 81 mg oral delayed release tablet)1 Tabs Oral DAILY WITH BREAKFAST. calcium carbonate (calcium (as carbonate) 600 mg oral tablet)2 Tabs Oral TWICE A DAY. carvedilol (carvedilol 6.25 mg oral tablet)1 Tabs Oral TWICE A DAY. cephalexin (Keflex 500 mg oral capsule)1 Capsules Oral EVERY EIGHT HOURS for 10 Days. Refills: 0. cyanocobalamin (cyanocobalamin 1000 mcg oral tablet)2 Tabs Oral DAILY. cyclobenzaprine = Flexeril (cyclobenzaprine 10 mg oral tablet)1 Tabs Oral EVERY EIGHT HOURS as needed as needed for muscle spasm. Refills: 2. diclofenac (diclofenac sodium (= Voltaren) 75 mg oral delayed release tablet)1 Tabs Oral EVERY OTHER DAY as needed as needed for pain. ferrous sulfate ( iron ) (ferrous sulfate 325 mg (65 mg elemental iron) oral tablet)1 Tabs Oral DAILY. ginkgo (Ginkgo Biloba)1 Tabs Oral DAILY. ibuprofen = Motrin, Advil (IBU 800 mg oral tablet)1 Tabs Oral THREE TIMES A DAY as needed as needed for pain. methylPREDNISolone (Medrol 4 mg oral tablet)1 Packets Oral DAILY for 6 Days. as directed on package labeling. Refills: 0. multivitamin with minerals1 Tabs Oral DAILY. Non-Formulary Med (BIO-CMP (CALIUM,MAGNESIUM,PHOSPHATE) OTC)1 Tabs Oral DAILY. omeprazole (omeprazole 40 mg oral delayed release capsule)1 Capsules Oral DAILY. Discontinued glucosamine (glucosamine hydrochloride 1500 mg oral tablet)1 Tabs Oral DAILY. Hospital Course Procedures and Treatment Provided S/p arthrodesis of the right ankle joint, subtalar joint with intramedullary nail placement Physical Exam Patient is vitally stable. Dressings are intact. Minimal strikethrough drainage noted on internal dressings. No drainage noted on right lower extremity. DP and PT pulses are easily palpable. Gross sensation is intact. CFT is brisk to all distal digits 1 through 5 bilateral feet. Moderate pitting edema noted. No clinical signs of infection noted. [place] are intact and skin is well approximated. Discharge Plan Primary osteoarthritis, right ankle S/p TCC with intramedullary nail, right lower extremity Postoperative pain Plan: -Pain is well controlled. Patient will be sent with prescription for Percocet 5/325 mg every 6 hours p.o. as needed for pain. -Nonweightbearing to the right lower extremity with use of crutches or walker. -Keep dressings clean dry and intact. -Rest, ice behind the right knee, and elevate with 2 pillows. -Patiently to follow-up with Dr. Khan in clinic on Tuesday. -Continue home medications. -[address] Nathanael Buckley, PGY 2 Patient Discharge Condition Stable Discharge Disposition Home Activity on Discharge Nonweightbearing to the right lower extremity with walker Diet on Discharge No active diet order Patient Follow-Up With When Contact Information CAM KHAN, Podiatry [id number] [facility] [facility] [address] [place] [address]- Business (1) Additional Instructions: -Prescription for Percocet 5/325 mg every 6 hours p.o. as needed for pain - sent electronically to pharmacy -Nonweightbearing to the right lower extremity with use of crutches or walker. -Keep dressings clean dry and intact. -Rest, ice behind the right knee, and elevate with 2 pillows. -Follow-up with Dr. Khan in clinic on Tuesday. -81 mg aspirin daily. Electronically Co-Signed by: CAM KHAN DPM on 03/01/2022 09:55 EST I personally saw and examined the patient. I have reviewed and agree with the Resident's findings, including all diagnostic interpretations, and treatment pl (more content not included)... [facility] 02-28-2022 Note Chief Complaint Postoperative pain, s/p TCC arthrodesis with intramedullary nail, right lower extremity History of Present Illness Patient is a 71-year-old female who underwent arthrodesis of the right ankle joint, subtalar joint with intramedullary nail placement. Patient tolerated the procedure well without complications and was transferred to recovery room with all vital signs stable and vascular status intact to the right foot. The patient will be admitted for treatment evaluation of postoperative pain. Physical Exam Vitals & Measurements T: 36.4 ?C (Oral) TMIN: 36.3 ?C (Temporal Artery) TMAX: 36.6 ?C (Temporal Artery) HR: 108 (Peripheral) RR: 18 BP: 162/96 SpO2: 98% WT: 120.4 kg WT: 120.4 kg (Dosing) BMI: 41.66 Vital signs stable. Vascular status intact of the right lower extremity. CFT is brisk to all distal digits 1 through 5. Right lower extremity dressings are intact with Cantrell compressive dressing and posterior splint. Assessment/Plan Primary osteoarthritis, right ankle S/p TCC with intramedullary nail, right lower extremity Postoperative pain Plan: -Patient vitally stable with vascular status intact to the right foot. Patient will be admitted for treatment and evaluation of postoperative pain. -Continue home medications. -GI prophylaxis: As needed -Take pain medication as prescribed per protocol. -Nonweightbearing to the right lower extremity. -Rest, ice behind knee, elevate on 2 pillows. -Keep dressings clean, dry, and intact. May reinforce for strikethrough drainage with ABD and Waylon wrap. -Patient and plan discussed with Dr. Khan, D.P.M. Dr. Nathanael Buckley, PGY 2 Problem List/Past Medical History Ongoing Difficulty walking Local edema Lumbar stenosis Pain in right ankle and joints of right foot Primary osteoarthritis of right ankle Spondylolisthesis Historical Arthritis Asthma Back pain High Blood Pressure Reflux Procedure/Surgical History RIGHT ANKLE ARTHRODESIS,,RIGHT SUBTALAR JOINT ARTHRODESIS: 02/04/22 RIGHT TOTAL HIP REPLACEMENT: 04/05/19 Lumbar Laminectomy Posterior with Fusion.: 05/09/17 left hip revision Left acetabular revision right total knee 2 BACK SURGERY WITH HARDWARE INSERTION 2006 GALLBLADDER 2008 LEFT TOTAL HIP REPLACEMENT 2006 Medications Inpatient acetaminophen-oxycodone 325 mg-5 mg oral tablet = Percocet, 1 tabs, ORAL, [id number], PRN acetaminophen-oxycodone 325 mg-5 mg oral tablet = Percocet, 2 tabs, ORAL, [id number], PRN albuterol hfa 90mcg/inh = Ventolin, Proventil inhaler, 2 puffs, Inhalation, [id number], PRN aspirin, 81 mg= 1 tabs, ORAL, DAILY WITH BREAKFAST carvedilol, 6.25 mg= 1 tabs, ORAL, BIDWM cyanocobalamin, 2000 mcg= 4 tabs, ORAL, DAILY Dilaudid, 1 mg= 1 mL, IV Push, [id number], PRN pantoprazole, 40 mg= 1 tabs, ORAL, DAILY Senokot S (docu 50mg/senna 8.6mg), 2 tabs, ORAL, BID, PRN Tylenol, 650 mg= 2 tabs, ORAL, [id number], PRN Home albuterol 90 mcg/inh inhalation aerosol, 2 puffs, Inhalation, [id number], PRN aspirin 81 mg oral delayed release tablet, 81 mg= 1 tabs, ORAL, DAILY WITH BREAKFAST BIO-CMP (CALIUM,MAGNESIUM,PHOSPHATE) OTC, 1 tabs, ORAL, DAILY calcium (as carbonate) 600 mg oral tablet, 1200 mg= 2 tabs, ORAL, BID carvedilol 6.25 mg oral tablet, 6.25 mg= 1 tabs, ORAL, BID cyanocobalamin 1000 mcg oral tablet, 2000 mcg= 2 tabs, ORAL, DAILY cyclobenzaprine 10 mg oral tablet, 10 mg= 1 tabs, ORAL, [id number], PRN, 2 refills diclofenac sodium (= Voltaren) 75 mg oral delayed release tablet, 75 mg= 1 tabs, ORAL, EVERY OTHER DAY, PRN ferrous sulfate 325 mg (65 mg elemental iron) oral tablet, 325 mg= 1 tabs, ORAL, DAILY Ginkgo Biloba, 1 tabs, ORAL, DAILY IBU 800 mg oral tablet, 800 mg= 1 tabs, ORAL, TID, PRN multivitamin with minerals, 1 tabs, ORAL, DAILY omeprazole 40 mg oral delayed release capsule, 40 mg= 1 caps, ORAL, DAILY Allergies No Known Medication Allergies Pollen allergy (sneezing) Social History Alcohol - Denies Alcohol Use Domestic Concerns No, Stressors Surgery/Procedure. Emotional support available Yes. Coping: Effective. Pt's responsibilities: Hobbies/Play/Sports, Housework, Laundry, Meal preparation. Hospital finance concerns: No. Finance concerns: No. Concern for family members: No. Major illness in household: No. Family/Friends available to help: No. 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 Activity level: Moderate physical work. Highest education level: University degree(s). Operates hazardous equipment: No. Workplace hazards: None. Exercise Exercise duration: 0. Self assessment: Good condition. Home/Environment Lives with Alone. Living situation: Home/Independent. Home equipment: Walker/Cane, ELEVATED TOILET SEAT . Home monitoring equipment: None. Special/Community resources: None. Mobility prior to admit: Independent. Home Barriers: None. Will patient require additional/new services upon discharge? No. Nutrition/Health WEIGHT WEA (more content not included)... [facility] 02-24-2022 Note Date of Operation 02/04/22 8:30 Description of Procedure *Preoperative Diagnosis 1. Primary osteoarthritis, right ankle 2. Osteoarthritis, right subtalar joint *Postoperative Diagnosis Same Operative Procedure 1. Right ankle arthrodesis 40340 2. Right subtalar joint arthrodesis 39078 3. Excision of fibula, right 66042 Surgeon(s) JYOTI ORTEGA, CAM (Surgeon Primary) Stamping Die Maker Dr. Peter Holland, PGY [address] Dr[address] Nathanael Buckley, PGY 2 Anesthesia General *Estimated Blood Loss 250 cc Hemostasis: Pneumatic tourniquet, right thigh, 350 mmHg *Specimen(s) None *Complications None Condition: Stable Description of Procedure Materials: [employer]2 Intramedullary nail 150 mm 5.0mm x 80 mm partially threaded screw x 2 24 mm fully threaded screw x 1 26 mm fully threaded screw x 1 End cap x 1 2-0 nylon, 3-0 prolene, 3-0 vicryl, 3-0 monocryl, skin trace Indications for procedure: This is a 71-year-old female patient with a chief complaint of chronic right subtalar joint and ankle pain, with chronic lateral ankle ulcer. Patient had radiographs taken which showed severe osteoarthritis of the right ankle and subtalar joints. She has failed conservative care consisting of bracing and injections and has opted for surgical correction at this time. Risk and complications of the procedure have been reviewed with the patient in detail. All questions have been answered. No promises or guarantees have been given at this time. Operative procedure: The patient was brought to the operating room placed on the operating table in the supine position. Following IV sedation, a pneumatic tourniquet was applied to the right thigh. The right lower extremity was scrubbed, prepped, and draped to the below-knee level in the usual aseptic manner. The right foot and ankle were then exsanguinated with an Esmarch and the pneumatic tourniquet was inflated to 350 mmHg. Attention was directed to the anterior aspect of the right foot and ankle, where the tibia and fibula were identified. A linear longitudinal incision was made lateral to the tibialis anterior tendon. The incision was deepened with sharp and blunt dissection to the level of the periosteum of the tibia and talus. Care was taken in throughout the dissection to avoid damage to neurovascular structures. A periosteal elevator was used to reflect all soft tissue and periosteum from the tibia and talus both medially and laterally. Adequate exposure of the tibiotalar joint was achieved and all joints were distracted using K wires and distractor. A combination of osteotome, and bone curette were utilized to denude the tibial and talar aspects of the joint. After subchondral bone was exposed on both the tibial and talar surfaces of the ankle joint, a 2.0 mm drill was used to microdrill both the tibial and talar aspects of the joint. Healthy bleeding bone was noted for adequate apposition of the joint. Attention was then directed to the lateral aspect of the right foot and ankle, where a curvilinear incision was made lateral and posterior to the lateral malleolus extending over the base of the fourth metatarsal. It was noted that due to the extensive deformity of the ankle, that a fibular ostectomy would be performed to gain access to lateral aspect of the subtalar joint. A saw was used to resect a portion of the distal fibula above the level of the lateral malleolus. The bone was removed from the operative table and was processed into small pieces for bone graft harvest for ankle and subtalar joint arthrodeses. The incision was deepened with sharp and blunt dissection to the level of periosteum of the talus and calcaneus. Care was taken to retract peroneal tendons. Elevator was used to reflect all soft tissue and periosteum from the lateral calcaneus and talus. Adequate exposure of the subtalar joint was achieved and joints were distracted using a K wire and distractor. A bone curette was utilized to denude the calcaneal and talar aspects of the joint. After subchondral bone was exposed on both the calcaneal and talar surfaces of the subtalar joint, a 2.0 mm drill was used to microdrill both the calcaneal and talar aspects of the joint. Healthy bleeding bone was noted for adequate apposition of the joint. Attention was directed to the plantar calcaneus where intraoperative fluoroscopy was utilized to determine the correct placement of the intramedullary nail distal to the plantar calcaneal tuberosity. Longitudinal linear skin incision was made into the heel. Sharp and blunt dissection was utilized to reach the level of the calcaneus. Next the plantar protection sleeve assembly was inserted plantarly. Guidewire was placed through protection sleeves through the calcaneus into the talus and through the medullary canal of the tibia. Fluoroscopy was used to confirm the alignment of the wire through the calcaneus and talus into the anatomic axis of the tibia. Next the internal protection sleeve was removed. Canal widening w (more content not included)... [facility] 02-10-2022 Note PT Inpatient Progres s Note Acute Entered On: 02/07/2022 11:26 EDT Performed On: 02/07/2022 11:19 EDT by Roney Olivarez Reason for Treatment Past Medical History PT : lumbar stenosis, OA, asthma, HTN Chief Complaint PT : pt underwent elective TCC arthrodesis with IM nailing to R ankle by Dr. Khan on 02/04. currently NWB and is under extended recovery admission status Precautions : NWB RLE falls Roney Olivarez 02/07/2022 11:19 EDT Review/Treatments Provided PT Goals : PT Short Term Goals 02/05/2022 Transfer Goal #1: Modified independence; Rolling walker; Initial Transfer Goal #2: Modified independence; goal made as pt is planning on performing pivot transfers at baseline Ambulation Goal #1: Modified independence; 15; Rolling walker; Initial Ambulation Goal #2: Modified independence; 1; Rolling walker; Initial PT Plan : Treatment Frequency: 5-7 times per week (modified) Performed By: Stephanie Tang PT 02/05/2022 08:53 Treatment Duration: 1-2 weeks Performed By: Stephanie Tang PT 02/05/2022 08:53 Planned Treatments: Balance training, Bed mobility training, Caregiver training, Edema management, Equipment training, Gait training, Manual therapy, Neuromuscular reeducation, Pain management, Patient education, Posture/Body mechanics training, Stair training, Therapeuti... Performed By: Stephanie Tang PT 02/05/2022 08:53 PT Therapeutic Exercise : Yes PT Modality : Yes Roney Olivarez 02/07/2022 11:19 EDT Mobility Mobility Grid Supine to Sit : Mod I Sit to Supine : Mod I Scooting : Mod I Transfer Sit to Stand : Close supervision Transfer Stand to Sit : Close supervision Transfer Bed to and From Chair : CGA (Comment: rolling walker , NWB right LE [Roney Olivarez 02/07/2022 11:19 EDT] ) Roney Olivarez 02/07/2022 11:19 EDT Therapeutic Exercise Therapeutic Exercise Grid Exercise 1 Exercise : Long Arc Quads, Quad Sets, Straight Leg Raises, Other: toe wiggle Position : Supported sit Laterality : Bilateral Repetition/Time : 10 x 2 Completed : Yes Roney Olivarez 02/07/2022 11:19 EDT Modalities Modalities Activity 1 Modality : Cold packs Body Region : ant /posterior knee Roney Olivarez 02/07/2022 11:19 EDT Education Barriers to Learning : None evident Teaching Method : Demonstration, Explanation, Teach-back OlivarezRoney yap Melissa Mehta 02/07/2022 11:19 EDT Physical Therapy Education Grid Bed Mobility : Verbalizes understanding, Demonstrates Bed Positioning : Verbalizes understanding, Demonstrates Bed to Chair Transfers : Verbalizes understanding, Demonstrates Exercise Program : Verbalizes understanding, Demonstrates OlivarezRoney yap Melissa Mehta 02/07/2022 11:19 EDT LE Range/Strength LE Overall Range of Motion Grid Left Lower Extremity Passive Range : Within functional limits Left Lower Extremity Active Range : Within functional limits Right Lower Extremity Passive Range : Within functional limits Right Lower Extremity Active Range : Within functional limits OlivarezRoney yap Melissa Mehta 02/07/2022 11:19 EDT Lt Lower Extremity Strength : Other: grossly 3+/5 Rt Lower Extremity Strength : Other: grossly at least 2+/5 hip/knee . ankle not assessed due to cast placement OlivarezRoney Melissa Mehta 02/07/2022 11:19 EDT Plan Duration : 1-2 weeks Frequency : 5-7 times per week *Planned Treatments : Balance training, Bed mobility training, Caregiver training, Edema management, Equipment training, Gait training, Manual therapy, Neuromuscular reeducation, Pain management, Patient education, Posture/Body mechanics training, Stair training, Therapeutic activities, Therapeutic exercises, Transfer training Treatment Plan/Goals Established With Patient/Caregiver : Yes Juanis Roney Mehta 02/07/2022 11:19 EDT Discharge Recommendations Discharge To, Anticipated PMR : Home with home health, Other: family assist Goals are discharged upon : Patient discharge from the facility. Transfer Plan of Care? : No Roney Olivarez 02/07/2022 11:19 EDT Assessment PT Impairments or Limitations : Ambulation deficits, Balance deficits, Bed mobility deficits, Endurance deficits, Equipment training, Home accessibility/housing, Safety awareness deficits, Strength deficits, Transfer deficits, Transition deficits Barriers to Safe Discharge PT : Insight into deficits, Limited family support, Limited social support, Medical diagnosis, Past medical history, Safety awareness, Severity of deficits Roney Olivarez 02/07/2022 11:19 EDT Time Spent with Patient PT Time In : 10:09 EST PT Time Out : 10:33 EST PT Functional Activity Time : 24 minutes BASKETBALL PLAYER Functional Activity Units : 2 units PT Total Timed Code Treatment Units : 2 units PT Total Timed Code Tx Minutes : 24 minutes 8 Min Rule Unit Check PT IP : 2 units PT Total Treatment Time Rehab : 24 minutes 8 Min Rule Unit Difference PT IP : 0 Roney Olivarez 02/07/2022 11:19 EDT Additional Information Additional Information PT : Pt. sta (more content not included)... [facility] 02-10-2022 Note PT Inpatient Progres s Note Acute Entered On: 02/06/2022 13:15 EDT Performed On: 02/06/2022 13:06 EDT by Roney Olivarez Reason for Treatment Subjective Statement PT : Pt. states, My pain is being managed by medication for my right lower leg. The cold packs you gave me feel good as well. Past Medical History PT : lumbar stenosis, OA, asthma, HTN Chief Complaint PT : pt underwent elective TCC arthrodesis with IM nailing to R ankle by Dr. Khan on 02/04. currently NWB and is under extended recovery admission status Precautions : NWB RLE falls Roney Olivarez 02/06/2022 13:06 EDT Review/Treatments Provided PT Goals : PT Short Term Goals 02/05/2022 Transfer Goal #1: Modified independence; Rolling walker; Initial Transfer Goal #2: Modified independence; goal made as pt is planning on performing pivot transfers at baseline Ambulation Goal #1: Modified independence; 15; Rolling walker; Initial Ambulation Goal #2: Modified independence; 1; Rolling walker; Initial PT Plan : Treatment Frequency: 5-7 times per week (modified) Performed By: Stephanie Tang PT 02/05/2022 08:53 Treatment Duration: 1-2 weeks Performed By: Stephanie Tang PT 02/05/2022 08:53 Planned Treatments: Balance training, Bed mobility training, Caregiver training, Edema management, Equipment training, Gait training, Manual therapy, Neuromuscular reeducation, Pain management, Patient education, Posture/Body mechanics training, Stair training, Therapeuti... Performed By: Stephanie Tang PT 02/05/2022 08:53 Pain Present : Yes actual or suspected pain PT Therapeutic Exercise : Yes PT Modality : Yes Roney Olivarez 02/06/2022 13:06 EDT Pain Assessment Pain Location : Ankle Laterality : Right Quality : Discomfort, Throbbing Time Pattern : Intermittent Self Report Pain : Numeric rating scale Numeric Pain Scale : 5 = Moderate pain Numeric Pain Score : 5 Juanis Roney Mehta 02/06/2022 13:06 EDT Mobility Mobility Grid Supine to Sit : CGA Sit to Supine : CGA Transfer Sit to Stand : Min A Transfer Stand to Sit : Min A Transfer Bed to and From Chair : Min A (Comment: mary madrigal [Roney Olivarez 02/06/2022 13:06 EDT] ) Roney Olivarez 02/06/2022 13:06 EDT Therapeutic Exercise Therapeutic Exercise Grid Exercise 1 Exercise : Long Arc Quads Position : Supported sit Laterality : Bilateral Repetition/Time : 10 x 3 Completed : Yes Roney Olivarez 02/06/2022 13:06 EDT Modalities Modalities Activity 1 Modality : Cold packs Body Region : ant /posterior knee Roney Olivarez 02/06/2022 13:06 EDT Education Barriers to Learning : None evident Teaching Method : Demonstration, Explanation, Teach-back Roney Olivarez 02/06/2022 13:06 EDT Physical Therapy Education Grid Bed Mobility : Needs practice/supervision Bed Positioning : Needs practice/supervision Body Mechanics : Needs practice/supervision Exercise Program : Needs practice/supervision Roney Olivarez 02/06/2022 13:06 EDT Plan Duration : 1-2 weeks Frequency : 5-7 times per week *Planned Treatments : Balance training, Bed mobility training, Caregiver training, Edema management, Equipment training, Gait training, Manual therapy, Neuromuscular reeducation, Pain management, Patient education, Posture/Body mechanics training, Stair training, Therapeutic activities, Therapeutic exercises, Transfer training Treatment Plan/Goals Established With Patient/Caregiver : Yes Roney Olivarez 02/06/2022 13:06 EDT Discharge Recommendations Discharge To, Anticipated PMR : [facility] Goals are discharged upon : Patient discharge from the facility. Transfer Plan of Care? : No Roney Olivarez 02/06/2022 13:06 EDT Time Spent with Patient PT Time In : 09:06 EST PT Time Out : 09:44 EST PT Functional Activity Time : 38 minutes BASKETBALL PLAYER Functional Activity Units : 3 units PT Total Timed Code Treatment Units : 3 units PT Total Timed Code Tx Minutes : 38 minutes 8 Min Rule Unit Check PT IP : 3 units PT Total Treatment Time Rehab : 38 minutes 8 Min Rule Unit Difference PT IP : 0 Roney Olivarez T - 02/06/2022 13:06 EDT Additional Information Additional Information PT : Pt. required extra time for toileting on bedside commode. Pt. sitting up in bedside chair after treatment w/ call button and table tray within reach. Feet elevated on pillow w/ cold packs to right le. Roney Olivarez T - 02/06/2022 13:06 EDT AM-PAC 6 clicks Basic Mobility How much difficulty does the patient currently have... Turning over in bed(including adjusting bedclothes, sheets and blankets)? : A Little Sitting down on and Standing up from a chair with arms (e.g., wheelchair, bedside commode) : A Little Moving from lying on back to sitting on the side of the bed? : A Little Roney Olivarez T - 02/06/2022 13:06 EDT How much help from another person does the patient currently need... Moving to and from a bed to a chair (including a (more content not included)... [facility] 02-07-2022 Note Nursing Discharge Dumont mmary Entered On: 02/07/2022 13:48 EDT Performed On: 02/07/2022 13:48 EDT by Earnestine Campbell RN, DC Information Discharged to : Home Reg VTE Warfarin at Discharge : No Earnestine Campbell RN - 02/07/2022 13:48 EDT Education TeachBack Methodology : TeachBack, Demonstration, Explanation, Printed Material Barriers to Learning : None evident Earnestine Campbell RN - 02/07/2022 13:48 EDT [facility] 02-05-2022 Note PT Inpatient Evaluat ion Acute Entered On: 02/05/2022 10:17 EDT Performed On: 02/05/2022 8:53 EDT by Stephanie Tang PT Reason for Treatment Subjective Statement PT : pt encountered seated up in chiar, BLE down in dependant position, RLE acewrapped and c/d/i. no c/o pain at htis time Past Medical History PT : lumbar stenosis, OA, asthma, HTN Chief Complaint PT : pt underwent elective TCC arthrodesis with IM nailing to R ankle by Dr. Khan on 02/04. currently NWB and is under extended recovery admission status Precautions : NWB RLE falls Cly[place] PT, Stephanie - 02/05/2022 10:05 EDT General Info Precautions RTF : Post Procedure Location of Care, 02/04/2022 12:35:00 EDT, Surgical Unit (5E), Ordered Oxygen Therapy, 02/04/2022 12:24:00 EDT, Nasal Cannula, 3L, Constant Order, overnight if SpO2 less than 95%, Ordered Communication CONSTANT Order, 02/04/2022 12:07:00 EDT, Constant Order, STAT EKG for Chest Pain, STAT ABGs for Acute Respiratory Distress, STAT Potassium/Magnesium for any significant change in condition/rhythm, Ordered Communication CONSTANT Order, 02/04/2022 12:07:00 EDT, Constant Order, Current ACLS Provider may, Initiate [place] [employer] Advanced Cardiac Life support Algorithm per patient code status, Ordered Reason VTE Prophylaxis Not Received, 02/04/2022 12:07:00 EDT, Patient is ambulatory, Ordered Communication CONSTANT Order, 02/04/2022 11:58:00 EDT, Constant Order, Patients recovering in Critical Care, record vital signs Q10 min or more frequently for patient's condition or as per physician order. Patients do not require a PAR score (post anesthesia recovery)., Ordered Oxygen Therapy, 02/04/2022 11:58:00 EDT, Simple Mask, 100%, Constant Order, in PACU, wean Oxygen to room air to baseline SpO2, Ordered Oxygen Therapy, 02/04/2022 11:58:00 EDT, Nasal Cannula, 3L, Constant Order, overnight if SpO2 less than 95%, Ordered Basic Command Following : Intact Safety/Judgment : Impaired Pain Present : No actual or suspected pain Ability to Make Needs Known PT : Yes Orientation Assessment : Oriented x 4 Affect/Behavior : Appropriate, Alert, Calm, Cooperative Stephanie Tang PT - 02/05/2022 10:05 EDT History, Problems History of Comorbidities,Personal Factor : 3-4 personal factors and/or comorbidities Stephanie Tang PT - 02/05/2022 10:05 EDT (As Of: 02/05/2022 10:17:19 EDT) Problems(Active) At risk for falls (SNOMED CT :335319630 ) Name of Problem: At risk for falls ; Recorder: SYSTEM; Confirmation: Confirmed ; Classification: Nursing ; Code: [id number] ; Last Updated: 02/04/2022 14:54 EDT ; Life Cycle Date: 02/04/2022 ; Life Cycle Status: Active ; Vocabulary: SNOMED CT ; Comments: 02/04/2022 14:54 - SYSTEM Problem added automatically by system based on documentation of a admission to the hospital. Difficulty walking (SNOMED CT :9296963782 ) Name of Problem: Difficulty walking ; Recorder: CAM KHAN DPM; Confirmation: Confirmed ; Classification: Medical ; Code: [id number] ; Contributor System: [employer] ; Last Updated: 12/15/2021 09:09 EDT ; Life Cycle Date: 12/15/2021 ; Life Cycle Status: Active ; Responsible Provider: CAM KHAN DPM; Vocabulary: SNOMED CT Local edema (SNOMED CT :791015349 ) Name of Problem: Local edema ; Recorder: CAM KHAN DPM; Confirmation: Confirmed ; Classification: Medical ; Code: [id number] ; Contributor System: Netseer ; Last Updated: 12/15/2021 09:08 EDT ; Life Cycle Date: 12/15/2021 ; Life Cycle Status: Active ; Responsible Provider: CAM KHAN DPM; Vocabulary: SNOMED CT Lumbar stenosis (SNOMED CT :40233983 ) Name of Problem: Lumbar stenosis ; Recorder: CARLTON GERMAN CNP; Confirmation: Confirmed ; Classification: Medical ; Code: [id number] ; Contributor System: SgnamChart ; Last Updated: 04/28/2017 12:08 EST ; Life Cycle Date: 04/28/2017 ; Life Cycle Status: Active ; Responsible Provider: CARLTON GERMAN CNP; Vocabulary: SNOMED CT Pain in right ankle and joints of right foot (SNOMED CT :7601500561 ) Name of Problem: Pain in right ankle and joints of right foot ; Recorder: CAM KHAN DPM; Confirmation: Confirmed ; Classification: Medical ; Code: [id number] ; Contributor System: SgnamChart ; Last Updated: 12/15/2021 09:08 EDT ; Life Cycle Date: 12/15/2021 ; Life Cycle Status: Active ; Responsible Provider: CAM KHAN DPM; Vocabulary: SNOMED CT Primary osteoarthritis of right ankle (SNOMED CT :7606967558 ) Name of Problem: Primary osteoarthritis of right ankle ; Recorder: ALEXANDRE PUTNAM DPM; Confirmation: Confirmed ; Classification: Medical ; Code: [id number] ; Contributor System: Netseer ; Last Updated: 11/18/2021 17:51 EDT ; Life Cycle Date: 11/18/2021 ; Life Cycle Status: Active ; Responsible Provider: ALEXANDRE PUTNAM DPM; Vocabulary: SNOMED CT Spondylolisthesis (SNOMED CT :690833717 ) Name of Problem: Spondylolisthesis ; Recorder: CARLTON GERMAN CNP; Confirmation: Confirmed ; Classification: Medical ; Code: [id number] (more content not included)... [facility] 02-04-2022 Note Immunization Screeni ng Entered On: 02/04/2022 15:21 EDT Performed On: 02/04/2022 15:20 EDT by Tracey Jackson RN Immunization Screening Immunizations Current : Yes Last Tetanus : Unknown Influenza Vaccine : No COVID-19 Fully Vaccinated : Yes COVID-19 Vaccine Received : Pfizer COVID Booster Received : Yes Tracey Jackson RN - 02/04/2022 15:20 EDT Influenza Immunization Screening Would the patient 18 & over like to receive the Influenza Vaccine? : No Refusal Reason : Other: does not want Influenza Vaccine Immunization Sheet (federico. 11/28/2020) given to the patient : Yes Tracey Jackson RN - 02/04/2022 15:20 EDT [facility] Comment on above: Order Comment: Order entered secondary to inpatient admission. Result Comment: 02-04-2022 Note Patient: KASANDRA FERNANDEZ Age: 71 years Sex: Female : 1950 Associated Diagnoses: None Author: RUTH ARANDA MD Basic Information Source of history: Self, Medical record. Chief Complaint Right ankle pain History of Present Illness The patient is a 71 y/o female with hx of arthritis who has worsening pain in her right ankle. The patient consulted Dr. Khan who recommended surgery. Histories Past Medical History: HTN Asthma Family History: Heart failure Mother () Dementia Mother () Depression. Mother () Prostate cancer. Father () Comments: 12/11/2012 12:45 DELBERT Stover RN, Steph Duff. AGE 71 OR 72 Degenerative disc disease Father () Coronary artery disease Father () Pneumonia Mother () Reflux. Sister Sister Sister Prostate cancer.. 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 Activity level: Moderate physical work. Highest education level: University degree(s). Operates hazardous equipment: No. Workplace hazards: None. Exercise Exercise duration: 0. Self assessment: Good condition. Home/Environment Lives with Alone. Living situation: Home/Independent. Home equipment: Walker/Cane, ELEVATED TOILET SEAT . Home monitoring equipment: None. Special/Community resources: None. Mobility prior to admit: Independent. Home Barriers: None. Will patient require additional/new services upon discharge? No. Nutrition/Health WEIGHT WEATCHERS, Appetitie: Good. Feeding ability: Independent. Chewing/swallowing issues: No. Unintentional weight change: No. Substance Abuse Denies Substance Abuse Tobacco Denies Tobacco Use Never smoker Domestic Concerns No, Stressors Surgery/Procedure. Emotional support available Yes. Coping: Effective. Pt's responsibilities: Hobbies/Play/Sports, Housework, Laundry, Meal preparation. Hospital finance concerns: No. Finance concerns: No. Concern for family members: No. Major illness in household: No. Family/Friends available to help: No. Psychosocial History No active psychosocial history has been recorded. Health Status Allergies (2) Active Reaction No Known Medication Allergies None Documented Pollen allergy sneezing .Current medications: Home Meds (ST) Home Medications (13) Active albuterol 90 mcg/inh inhalation aerosol 2 puffs, PRN, Inhalation, [id number] aspirin 81 mg oral delayed release tablet 81 mg = 1 tabs, ORAL, DAILY WITH BREAKFAST BIO-CMP (CALIUM,MAGNESIUM,PHOSPHATE) OTC 1 tabs, ORAL, DAILY calcium (as carbonate) 600 mg oral tablet 1,200 mg = 2 tabs, ORAL, BID carvedilol 6.25 mg oral tablet 6.25 mg = 1 tabs, ORAL, BID cyanocobalamin 1000 mcg oral tablet 2,000 mcg = 2 tabs, ORAL, DAILY cyclobenzaprine 10 mg oral tablet 10 mg = 1 tabs, PRN, ORAL, [id number] diclofenac sodium (= Voltaren) 75 mg oral delayed release tablet 75 mg = 1 tabs, PRN, ORAL, EVERY OTHER DAY ferrous sulfate 325 mg (65 mg elemental iron) oral tablet 325 mg = 1 tabs, ORAL, DAILY Ginkgo Biloba 1 tabs, ORAL, DAILY IBU 800 mg oral tablet 800 mg = 1 tabs, PRN, ORAL, TID multivitamin with minerals 1 tabs, ORAL, DAILY omeprazole 40 mg oral delayed release capsule 40 mg = 1 caps, ORAL, DAILY Review of Systems Constitutional: Negative except as documented in history of present illness. Eye: Negative except as documented in history of present illness. Ear/Nose/Mouth/Throat: Negative except as documented in history of present illness. Respiratory: Negative except as documented in history of present illness. Cardiovascular: Negative except as documented in history of present illness. Gastrointestinal: Negative except as documented in history of present illness. Genitourinary: Negative except as documented in history of present illness. Hematology/Lymphatics: Negative except as documented in history of present illness. Endocrine: Negative except as documented in history of present illness. Musculoskeletal: Joint pain, Right ankle. Integumentary: Negative except as documented in history of present illness. Neurologic: Negative except as documented in history of present illness. Psychiatric: Negative except as documented in history of present illness. All Other ROS: ROS reviewed as documented in chart. Physical Examination VS/Measurements Vital Signs (last 24 hrs) Last Charted Heart Rate Peripheral 87 bpm (FEB 04 07:40) SBP H 181mmHg (FEB 04 07:40) DBP 87 mmHg (FEB 04 07:40) General: Alert and oriented, No acute distress. Eye: Extraocular movements are intact, Normal conjunctiva. HENT: Normocephalic, Normal hearing, Oral (more content not included)... [facility] 02-04-2022 Note GENI Education Jadee d On: 02/04/2022 8:02 EDT Performed On: 02/04/2022 8:01 EDT by Saloni Cordero RN General / Required Barriers to Learning : None evident TeachBack Methodology : TeachBack, Demonstration, Explanation, Printed Material Saloni Cordero RN - 02/04/2022 8:01 EDT Education Nursing General Required GRID Speakup : Needs further teaching Saloni Cordero RN 02/04/2022 8:01 EDT Pain Pain Education Topics Grid Acceptable Level of Pain : Verbalizes understanding Accurate Report of Pain : Verbalizes understanding Acute vs Chronic Pain : Verbalizes understanding Pain Assessment Schedule : Verbalizes understanding Pain Assessment Tool : Verbalizes understanding Saloni Cordero RN 02/04/2022 8:01 EDT Pre Procedure / Surgery Education Procedures Tests Exams GRID Anesthesia/Sedation : Verbalizes understanding NPO : Verbalizes understanding Preoperative Instructions : Needs further teaching Saloni Cordero RN - 02/04/2022 8:01 EDT Post Procedure Education Postprocedure Education Topics Grid Pain Management : Verbalizes understanding Plan of Care : Needs practice/supervision Signs/Symptoms to Report : Needs practice/supervision Saloni Cordero RN - 02/04/2022 8:01 EDT [facility] 02-04-[address] Entered On: 01/29/2022 10:38 EDT Performed On: 01/29/2022 10:35 EDT by Delmis Garvey RN Infection Screening Last Physical Overnight Location of the Patient : Personal Residence Discharge from Other Facility in past 4 weeks : No Travel outside [place] within past 30 days : No History of Recent Diarrhea : No Concern possible Infectious Disease : No Exposure AND/OR close contact with a person under investigation or laboratory-confirmed COVID-19 individual within 14 days of symptom onset AND/OR any of the following: : No Do you live/work in a high risk situation (congregated living, hemodialysis, infusion clinic, residential, assisted living, assisted, homeless snf, etc.)? : No Saloni Cordero RN - 02/04/2022 7:57 EDT Checklist NPO Since : 02/04/2022 05:00 EDT Last Fluid Intake : 02/04/2022 05:00 EDT Last Food Intake : 02/03/2022 20:00 EDT Last Void : 02/04/2022 06:00 EDT Saloni Cordero RN - 02/04/2022 7:57 EDT Valuables Prechecklist Grid Valuables at Bedside Clothes : Pants, Shirt, Shoes, Undergarments (Comment: ankle brace too- in locker [Saloni Cordero RN - 02/04/2022 7:57 EDT] ) Saloni Cordero RN 02/04/2022 7:57 EDT Procedure Location : [facility] Saloni Cordero RN 02/04/2022 7:57 EDT Surgery Prep Grid CHG Cloth Prep in GENI : Yes Makeup and Jewelry Removed : Yes Nail Dominican Removed : Yes Wearing Patient Gown/Street Clothes Removed : Yes Saloni Cordero RN 02/04/2022 7:57 EDT Procedure Checklist is completed for: : RIGHT ANKLE ARTHRODESIS Delmis Garvey RN - 01/29/2022 10:35 EDT Delmis Garvey RN 01/29/2022 10:35 EDT Patient Rights Grid Anesthesia Consent Signed : Yes Surgical Consent Signed : Yes Saloni Cordero RN 02/04/2022 7:57 EDT Allergy (As Of: 02/04/2022 08:01:15 EDT) Allergies (Active) No Known Medication Allergies Estimated Onset Date: Unspecified ; Created By: Verna Garvin RPh; Reaction Status: Active ; Category: Drug ; Substance: No Known Medication Allergies ; Type: Allergy ; Updated By: Verna Garvin RPh; Reviewed Date: 02/04/2022 7:59 EDT Pollen allergy Estimated Onset Date: Unspecified ; Reactions: sneezing ; Created By: Heidy Boyd RN; Reaction Status: Active ; Category: Other ; Substance: Pollen allergy ; Type: Allergy ; Updated By: Heidy Boyd RN; Reviewed Date: 02/04/2022 7:59 EDT Beta Jose E Beta Jose E History : Patient does not take a Beta Jose E Saloni Cordero RN 02/04/2022 7:57 EDT Protocols Patient Safety Grid ID Band on and Verified : Yes Fall Risk Director Enterprise Data Architecture : Yes Saloni Cordero RN 02/04/2022 7:57 EDT Current ECG in Medical Record : Yes (Comment: JEWELL 01/28/22 [Delmis Garvey RN 01/29/2022 10:35 EDT] ) CBCND : Yes (Comment: JEWELL 01/28/22 [Delmis Garvey RN 01/29/2022 10:35 EDT] ) Basic [place] : Yes (Comment: JEWELL 01/28/22 [Delmis Garvey RN [facility] 01/29/2022 10:35 EDT] ) Delmis Garvey RN 01/29/2022 10:35 EDT Current H&P in Medical Record : Yes (Comment: Dr. Tangela paiz 02/04/22 [Delmis Garvey RN 01/29/2022 10:35 EDT] ) Gil GARRIDO [facility] 02/04/2022 7:57 EDT Verification Sleep Apnea : No Prosthesis/Metal : bilateral hip sx, back fushion sx, right knee sx Pacemaker/AICD : no Mode of Arrival : [facility] 02/04/2022 7:57 EDT DCP GENERIC CODE H&P Update Within 24 hrs on New Admits : Yes (Comment: dr tangela paiz [Gil GARRIDO [place] - 02/04/2022 7:57 EDT] ) Family Waiting : Yes Can Surgeon Speak With Family : Yes (Comment: Anusha-sister [phone] [Gil GARRIDO [facility] 02/04/2022 7:57 EDT] ) [facility] 02/04/2022 7:57 EDT Anesthesia/Transfusions Anesthesia/Transfusions : Prior anesthesia Accept Blood Products if Necessary : Yes Saloni Cordero RN 02/04/2022 7:57 EDT Advance Directive Advanced Directives : Yes Advance Directive Date : unknown Advance Directive Type : Living will Advance Directive Location : Family to bring in copy from home Advance Directive Additional Information : No Saloni Cordero RN - 02/04/2022 7:57 EDT [facility] 02-01-2022 Note GENI Education Entere d On: 01/29/2022 10:39 EDT Performed On: 01/29/2022 10:38 EDT by Delmis Garvey RN General / Required Barriers to Learning : None evident Delmis Garvey RN - 02/01/2022 10:52 EDT Education Nursing General Required GRID Speakup : Needs further teaching Delmis Garvey RN 02/01/2022 10:52 EDT TeachBack Methodology : Explanation Delmis Garvey RN 01/29/2022 10:38 EDT Infection Control Education Dialysis Surgery - Hospital form # [id number] : Needs further teaching Delmis Garvey RN 01/29/2022 10:38 EDT Pre Procedure / Surgery Education Procedures Tests Exams GRID NPO : Verbalizes understanding Delmis Garvey RN 02/01/2022 10:52 EDT Preoperative Instructions : Needs further teaching Delmis Garvey RN 01/29/2022 10:38 EDT [facility] 11-18-2021 Note Chief Complaint Patient here today for evaluation for chronic right ankle pain, swelling, and instability. Pain mild today. She was otc brace and uses a walker. History of Present Illness 70-year-old female patient presents to the office today referred by her orthopedic surgeon for evaluation of chronic pain in her right ankle. Patient relates an extensive history of symptoms dating back well over 10 years. She has pain stiffness and swelling throughout her right ankle as well as decreased range of motion. Patient has tried icing and compression. She was referred today by her orthopedic surgeon to discuss the possibility of total ankle replacement versus ankle fusion. Patient has tried bracing as well as compression and icing with limited improvement. She feels the condition is starting to affect her day-to-day activities and overall quality of life. Physical Exam Vitals & Measurements Systolic Blood Pressure: 182 mmHg High (10/23/21 13:58:00) Diastolic Blood Pressure: 86 mmHg (10/23/21 13:58:00) Peripheral Pulse Rate: 88 bpm (10/23/21 13:58:00) Mean Arterial Pressure: 118 mmHg (10/23/21 13:58:00) Height/Length Measured: 166 cm (10/23/21 13:58:00) Weight Measured: 116 kg (10/23/21 13:58:00) Body Mass Index Measured: 42.1 kg/m2 (10/23/21 13:58:00) Weight Measured - lbs2: 255 lb (10/23/21 13:58:00) Height/Length Measured - in2: 65.5 in (10/23/21 13:58:00) Body Mass Index Measured English2: 41.78 kg/m2 (10/23/21 13:58:00) BSA: 2.31 m2 (10/23/21 13:58:00) Ht/Wt Measurement Refused by Patient?2: No (10/23/21 13:58:00) Depression Screening Scores No Depression Screening data available for this encounter. Fall Risk Assessment No Falls Risk Assessment data available for this encounter. Exam demonstrates palpable dorsalis pedis and posterior tibial pulses bilaterally. Both feet are warm to touch with immediate capillary refill time. Neurologic sensation is grossly intact to temperature light touch and pressure. Dermatological exam reveals no open lesions fissures or ulcerations bilaterally. Musculoskeletal examination reveals intact muscle function for all groups tested bilaterally The right ankle demonstrates fusiform swelling throughout. There is significant decrease in range of motion both dorsiflexion and plantarflexion with anterior joint tenderness as well as posterior joint line tenderness. Moderate amount of crepitus is noted. No gross instability is present. There is visible and palpable spurring at the anterior aspect of the ankle joint. Assessment/Plan This Visit Diagnosis 1. Primary osteoarthritis of right ankle M19.071 I had a lengthy discussion today with the patient and family. Patient is aware of the difficult and complex nature associated with treating this condition. Unfortunately, the patient has advanced and significant osteoarthritis of the right ankle. She is not responding well to conservative treatment. Given the patient's age, activity level and severity of the condition coupled with the nonresponsiveness to conservative treatment, it is highly likely the patient will require eventual surgical intervention. Patient would likely benefit from replacement of the right ankle versus arthrodesis of the right ankle. Risks versus benefits as well as the extensive postoperative recovery timeline were discussed in detail. However, I have recommended the patient follow-up with Dr. Khan for presurgical consultation regarding the patient's treatment options as well as the risks benefits associated with each of the procedures. Patient understands the significant nature of the surgery and would like to follow-up for further discussion. Ordered: AMB Office/Outpt New Pt Mod MDM / 45-59 min [id number], 10/23/2021 17:54:00 EDT, Primary osteoarthritis of right ankle AMB X-ray, ankle, right; , min 3 views [id number], 10/23/2021 17:54:00 EDT, Primary osteoarthritis of right ankle, 1 Problem List/Past Medical History Ongoing Lumbar stenosis Primary osteoarthritis of right ankle Spondylolisthesis Historical Arthritis Asthma Back pain High Blood Pressure Reflux Procedure/Surgical History RIGHT TOTAL HIP REPLACEMENT: 04/05/19 Lumbar Laminectomy Posterior with Fusion.: 05/09/17 left hip revision Left acetabular revision right total knee 2 BACK SURGERY WITH HARDWARE INSERTION 2006 LEFT TOTAL HIP REPLACEMENT 2006 GALLBLADDER 2008 Medications aspirin 81 mg oral delayed release tablet, 81 mg= 1 tabs, ORAL, DAILY WITH BREAKFAST BIO-CMP (CALIUM,MAGNESIUM,PHOSPHATE) OTC, 1 tabs, ORAL, DAILY calcium carbonate, 2400 mg, ORAL, DAILY Coreg 6.25 mg oral tablet, 6.25 mg= 1 tabs, ORAL, BID cyanocobalamin 1000 mcg oral tablet, 2000 mcg= 2 tabs, ORAL, DAILY cyclobenzaprine 10 mg oral tablet, 10 mg= 1 tabs, ORAL, [id number], PRN, 2 refills diclofenac sodium (= Voltaren) 75 mg oral delayed release tablet, 75 mg= 1 tabs, ORAL, EVERY OTHER DAY, PRN Ginkgo Biloba, 1 tabs, ORAL, DAILY glucosamine hydrochloride 1500 mg (more content not included)... [facility] 11-18-2021 Note X-rays, 3 ankle view s of the right ankle are negative for fracture or dislocation. There is complete loss of articular cartilage throughout the right ankle with advanced degenerative changes. Significant anterior and posterior ankle joint spurring is noted. No appreciable varus or valgus deformity noted to the ankle. [facility] Summary Purpose Family History No Family History Records FoundNo Family History Records FoundNo Family History Records Found Advance Directives No Advanced Directives Records FoundNo Advanced Directives Records FoundNo Advanced Directives Records Found Additional Source Comments INFORMATION SOURCE (unrecogn ized section and content) DATE CREATED AUTHOR 12/09/2018 [facility] DATE CREATED AUTHOR AUTHOR'S ORGANIZ ATION 08/28/2022 [facility] DATE CREATED AUTHOR AUTHOR'S ORGANIZ ATION 11/05/2022 [facility] FOR RECORDS PERTAINING TO PATIENTS WHO ARE OR HAVE BEEN ENROLLED IN A CHEMICAL DEPENDENCY/SUBSTANCEABUSE PROGRAM, SOME INFORMATION MAY BE OMITTED. This clinical summary was aggregated from multiple sources. Caution should be exercised in using it in the provision of clinical care. This summary normalizes information from multiple sources, and as a consequence, information in this document may materially change the coding, format and clinical context of patient data. In addition, data may be omitted in some cases. CLINICAL DECISIONS SHOULD BE BASED ON THE PRIMARY CLINICAL RECORDS. [facility] [employer] [facility]. provides no warranty or guarantee of the accuracy or completeness of information in this document.
[2024-12-06 11:12] LABS: Glucose Urine UA NEGATIVE (NEGATIVE)
[2024-12-06 11:22] LABS: Cast Seen? NONE SEEN #/LPF (NONE SEEN); Crystals Seen? None Seen #/HPF (None Seen); Urine Culture Indicated ALREADY ORDERED
== END 2024-12-06 10:26 | disposition home or self-care (01) ==
PROVIDERS: PCP Family Medicine; Visit Provider Family Medicine
DX: N39.0 Urinary tract infection, site not specified (principal)
CPT/HCPCS: 81001; 87086